=== PATIENT | male | born 1950 | race Caucasian/White ===

== ENCOUNTER 2022-07-06 16:12 | Inpatient (IN) | payer MEDICARE, SELFPAY ==
[2022-07-08] VITALS (9 sets, daily range): BP systolic 113–144; BP diastolic 58–72; PULSE 100–109; RESP 18–24; TEMP 36.6–36.7; O2SAT 90–95
[2022-07-08] MEDS: METHYLPREDNISOLONE SOD SUCC PF 40 MG/ML VIAL IVP ×4 (00:42→17:06)
[2022-07-08] MEDS: IPRATROPIUM/ALBUTEROL SULFATE 3 ML AMPUL.NEB IH ×4 (04:33→20:34)
[2022-07-08 05:20] LABS: Anion Gap 5.3; BUN Creatinine Ratio 14.8; Calcium 9.2 mg/dL (8.5-10.1); Carbon Dioxide 38.9 mmol/L (21.0-32.0); Chloride 95 mmol/L (98-107); Estimated GFR (African America >60 (>=60); Estimated GFR (Non-African Ame >60 (>=60); Glucose 125 mg/dL (74-106); Potassium 5.2 mmol/L (3.5-5.1); Sodium 134 mmol/L (136-145)
[2022-07-08 05:38] LABS: Basophils Percent Auto 0.1 % (0.2-2.0); Hematocrit 32.7 % (42.0-54.0); Hemoglobin 10.3 g/dL (14.0-18.0); Immature Granulocytes Abs Auto 0.04 10^3/uL (0.00-0.03); Immature Granulocytes Pct Auto 0.4 % (0.0-0.5); Lymphocytes Absolute Auto 0.3 10^3/uL (1.2-3.8); Lymphocytes Percent Auto 2.3 % (20.5-60.0); Mean Corpuscular HGB Conc 31.5 g/dL (29.9-35.2); Mean Corpuscular Hemoglobin 27.2 pg (25.9-34.0); Mean Corpuscular Volume 86.3 fL (80.0-94.0); Monocytes Absolute Auto 0.7 10^3/uL (0.3-0.8); Monocytes Percent Auto 6.1 % (1.7-12.0); Neutrophils Absolute Auto 10.2 10^3/uL (1.4-6.5); Neutrophils Percent Auto 91.1 % (43.0-75.0); Nucleated Red Blood Cells 0; Platelet Count 263 10^3/uL (150-450); Red Blood Count 3.79 10^6/uL (4.70-6.10); White Blood Count 11.2 10^3/uL (4.0-11.0)
[2022-07-08] MEDS: OMEPRAZOLE 40 MG CAPSULE.DR PO (06:14)
[2022-07-08] MEDS: METOPROLOL SUCCINATE 25 MG TAB.ER.24H PO (09:17)
[2022-07-08] MEDS: TAMSULOSIN HCL 0.4 MG CAPSULE PO (09:17)
[2022-07-08] MEDS: GUAIFENESIN 600 MG TAB.ER.12H PO ×2 (09:18→21:36)
[2022-07-08] MEDS: ASPIRIN 81 MG TAB.CHEW PO (09:18)
[2022-07-08] MEDS: AMLODIPINE BESYLATE 5 MG TABLET PO (09:18)
[2022-07-08] MEDS: ATORVASTATIN CALCIUM 40 MG TABLET PO (09:18)
[2022-07-08] MEDS: THEOPHYLLINE 300 MG TAB.ER.12H PO (09:19)
[2022-07-08] MEDS: SPIRONOLACTONE 25 MG TABLET PO (09:19)
--- NOTE | 2022-07-08 09:21 | REH.PTDLY ---
Physical Therapy Daily Note PT Daily Note/Assess Start: 07/08/22 09:12 Freq: Status: Active Protocol: [facility] 07[facility]08/22 09:12 [facility] (Rec: 07/08/22 09:20 [facility] Desktop) Physical Therapy Daily Note/Assessment Time In 08:50 Time Out 09:12 Pain Level 0 Pain Level 0 Subjective Pt feeling better today. Just got done taking himself to bathroom Ind. with no issues per pt. Therapeutic Exercise Minutes (minutes) 8 Therapeutic Exercise Units 0 Therapeutic Exercise Treatment Instructed in B LE seated exs 12x ea for improved strength for ease of functional mobility and stamina when pt returns home. Mild SOB noted after with SpO2 at 90%. Pt reports normal range is 88-92% for him due to his condition. Therapeutic Activity Minutes (minutes) 9 Therapeutic Activity Units 1 Chair Transfer Ability Independent Therapeutic Activity Comments Pt able to perform sit to stand transfers from chair Ind . Gait training with no AD, wearing 3 L of O2 108 feet with SOB noted after. Pt takes deep breaths with SpO2 at 89% and increasing quickly to 91% . Continuous sit to stand transfers performed 8x with this fatiguing pt once he is done. States it felt easy while he was performing. Total Therapy Minutes 17 Total Physical Therapy Units 1 Daily Note Summary Progressed with gait and transfers today with improved stamina, but still becoming SOB and requiring pt to focus on his breathing to recover. Pt is able to recover quickly. Pt is planning to return home without any needs. Does well with PT and has good safety awareness.
--- NOTE | 2022-07-08 09:44 | CM.NOTE ---
Rounds made with Dr. Gandhi, no discharge today but discussed possible discharge to home tomorrow. Pt does use home oxygen, but continues to deny need for HH services. SW and Case Management will continue to follow for any discharge needs.
[2022-07-08] MEDS: BUDESONIDE 0.5 MG/2 ML AMPULE NEB IH ×2 (10:44→20:34)
--- NOTE | 2022-07-08 11:49 | P.PN_ITS ---
Progress Note: Subjective Subjective Interval history: patient is a 72-year-old male with past medical history of chronic obstructive pulmonary disease requiring 3 L of oxygen at home, hypertension, hyperlipidemia, benign prostatic hypertrophy. Patient says he follows regularly with Dr. Singh. Over the course of the last week has becoming increased shortness of breath and he has noticed that his oxygen saturation has dropped into the 50s at times. He thinks it's the allergens floating around currently in the air. Denies any medication changes. At the time of admission he does report some increased work of breathing with small tasks. Otherwise denies any fevers chills or coughing nausea vomiting or diarrhea. Feeling better this morning, up with PT Exam Narrative: Exam Narrative: General: Patient is alert, and oriented to person, place and time with normal affect, proper hygiene , mild cachexia Skin: dry skin to both feet Head: atraumatic, acephalic Eyes: PERRLA, no nystagmus present, conjunctiva clear, no scleral icterus Ears: normal gross auditory acuity Nose: symmetric, no discharge, no maxillary or frontal sinus tenderness Mouth/Throat: no erythema, exudate, or tonsillar enlargement, normal dentition Neck: no masses palpated, normal thyroid, no JVD or audible carotid bruits Heart: Normal rate and rhythm, no murmurs/rubs/gallops Lungs:diminished breath sounds all lung vergara but moving more air today Abdomen: Normal audible bowel sounds, no distension, No palpable masses, no organomegaly, no rebound/guarding/ or rigidity Musculoskeletal: muscle atrophy noted, ROM is limited due to being in hospital bed, no swelling bilateral lower extremities Vascular: Normal carotid, radial, femoral, posterior tibial, and dorsalis pedis pulses Lymph: no supraclavicular, axillary, or anterior/posterior cervical adenopathy Neuro: CN II-X grossly intact, normal sensation upper and lower extremities Constitutional: Vital Signs, click to edit/add: Vital Signs - 24 hr 07/08/22 10:49 07/08/22 10:51 07/08/22 04:33 Temperature Pulse Rate 101 H 104 H Respiratory Rate 24 Blood Pressure [Le ft Arm] Pulse Oximetry 95 95 90 L Oxygen Delivery Me thod Nasal Cannula Nasal Cannula Nasal Cannula Oxygen Delivery Fl ow Rate 3 3 3 07/08/22 04:47 07/08/22 05:13 Temperature 97.9 F Pulse Rate 103 H 104 H Respiratory Rate 22 18 Blood Pressure [Le ft Arm] 113/58 L Pulse Oximetry 94 L 92 L Oxygen Delivery Me thod Nasal Cannula Nasal Cannula Oxygen Delivery Fl ow Rate 3 3 Progress Note: Objective Labs Labs: Short CBC 07/08/22 Range/Units 04:42 WBC 11.2 H (4.0-11.0) 10^3/uL Hgb 10.3 L (14.0-18.0) g/dL Hct 32.7 L (42.0-54.0) % Plt Count 263 (150-450) 10^3/uL BMP 07/08/22 04:42 Sodium 134 L Potassium 5.2 H Chloride 95 L Carbon Dioxide 38.9 H BUN 12.0 Creatinine 0.81 Glucose 125 H Calcium 9.2 Progress Note: A&P Assessment and Plan (1) Community acquired pneumonia of left lower lobe of lung: (2) Acute exacerbation of chronic obstructive pulmonary disease (COPD): (3) Acute on chronic respiratory failure with hypoxia: Plan #1 left lower lobe community-acquired pneumonia as seen on chest [id number] was placed on Rocephin and 80s IV along with methylprednisolone. We'll continue with DuoNeb's inhaled steroids and will also get a pulmonary consult. #2 acute chronic obstructive pulmonary disease exacerbation secondary to #1-Pep therapy, IV steroids, nebulizers, Mucinex and theophylline #3 acute on chronic respiratory failure from #1 and #2-patient was requiring more oxygen than 3 L at approximately 4 L nasal cannula at the time of admission. #4 hypertension continue home amlodipine, metoprolol, spironolactone #5 hyperlipidemia continue rosuvastatin and daily aspirin #6 GERD continue Protonix #7 benign prostatic hypertrophy continue Flomax Patient is a full code Lovenox for deep vein thrombosis prophylaxis patient as inpatient status and is expected to stay more than two days Fall Risk Details Current Medications: Current Medications Acetaminophen (Acetaminophen 325 Mg Tablet) 650 mg PO Q4H PRN PRN Reason: Pain Al Hydrox/Mg Hydrox/Simethicone (Maalox (Mag Hydrox/Aluminum Hyd/Simeth) 30 Ml Oral.Susp) 30 ml PO Q4H PRN PRN Reason: INDIGESTION Albuterol/Ipratropium (Ipratropium/Albuterol Sulfate 3 Ml Ampul.Neb) 3 ml IH Q4H PRN PRN Reason: Wheezing Albuterol/Ipratropium (Ipratropium/Albuterol Sulfate 3 Ml Ampul.Neb) 3 ml IH DAILY@0500,1100,1600,2100 COUNT INCLUDES THE [facility] Last Admin: 07/08/22 10:44 Dose: 3 ml Amlodipine Besylate (Amlodipine Besylate 5 Mg Tablet) 5 mg PO QD COUNT INCLUDES THE [facility] Last Admin: 07/08/22 09:18 Dose: 5 mg Aspirin (Aspirin 81 Mg Tab.Chew) 81 mg PO QD COUNT INCLUDES THE [facility] Last Admin: 07/08/22 09:18 Dose: 81 mg Atorvastatin Calcium (Atorvastatin Calcium 40 Mg Tablet) 40 mg PO QD COUNT INCLUDES THE [facility] Last Admin: 07/08/22 09:18 Dose: 40 mg Budesonide (Budesonide 0.5 Mg/2 Ml Ampule Neb) 0.5 mg IH DAILY@1100,2300 COUNT INCLUDES THE [facility] Last Admin: 07/08/22 10:44 Dose: 0.5 mg Enoxaparin Sodium (Enoxaparin Sodium 40 Mg/0.4 Ml Syringe) 40 mg SUBQ Q24H COUNT INCLUDES THE [facility] Guaifenesin (Guaifenesin 600 Mg Tab.Er.12h) 600 mg PO Q12H COUNT INCLUDES THE [facility] Last Admin: 07/08/22 09:18 Dose: 600 mg Azithromycin 500 mg/ Sodium (Chloride) 250 mls @ 250 mls/hr IV Q24H COUNT INCLUDES THE [facility] Ceftriaxone Sodium 1 mg/ (Sodium Chloride) 50 mls @ 100 mls/hr IV Q24H COUNT INCLUDES THE [facility] Sodium Chloride (Sodium Chloride 0.9% 250 Ml) 250 mls @ 10.417 mls/hr IV Q1H PRN PRN Reason: FLUSHES Methylprednisolone Sodium Succinate (Methylprednisolone Sod Succ Pf 40 Mg/Ml Vial) 40 mg IVP Q6H COUNT INCLUDES THE [facility] Last Admin: 07/08/22 11:11 Dose: 40 mg Metoprolol Succinate (Metoprolol Succinate 25 Mg Tab.Er.24h) 25 mg PO QD COUNT INCLUDES THE [facility] Last Admin: 07/08/22 09:17 Dose: 25 mg Omeprazole (Omeprazole 40 Mg Capsule.Dr) 40 mg PO ACB COUNT INCLUDES THE [facility] Last Admin: 07/08/22 06:14 Dose: 40 mg Ondansetron HCl (Ondansetron Pf 4 Mg/2 Ml Vial) 4 mg IV Q6H PRN PRN Reason: Nausea Polyethylene Glycol (Polyethylene Glycol 3350 17 Gm Powder Packet) 17 gm PO QD PRN PRN Reason: CONSTIPATION Spironolactone (Spironolactone 25 Mg Tablet) 25 mg PO QD COUNT INCLUDES THE [facility] Last Admin: 07/08/22 09:19 Dose: 25 mg Tamsulosin HCl (Tamsulosin Hcl 0.4 Mg Capsule) 0.4 mg PO QD COUNT INCLUDES THE [facility] Last Admin: 07/08/22 09:17 Dose: 0.4 mg Theophylline (Theophylline 300 Mg Tab.Er.12h) 300 mg PO QD COUNT INCLUDES THE [facility] Last Admin: 07/08/22 09:19 Dose: 300 mg Time Spent With Patient Time: Total time spent is greater than 50% in coordination of care (as documented) at patient's floor/unit and/or counseling patient: Time with patient: 25 - 35 minutes
[2022-07-08] MEDS: CEFTRIAXONE 1 MG in 0.9 % SODIUM CHLORIDE 50 ML 100 MG IV (16:12)
[2022-07-08] MEDS: ENOXAPARIN SODIUM 40 MG/0.4 ML SYRINGE SUBQ (16:13)
[2022-07-08] MEDS: 0.9 % SODIUM CHLORIDE 250 ML 10.417 ML IV (16:19)
[2022-07-08] MEDS: AZITHROMYCIN 500 MG in 0.9 % SODIUM CHLORIDE 250 ML 250 MG IV (16:59)
--- NOTE | 2022-07-08 18:23 | PM.PLPN ---
Progress Note: A&P Assessment and Plan (1) Acute exacerbation of chronic obstructive pulmonary disease (COPD): Assessment and Plan: Continue nebs/bronchodilators. (2) Community acquired pneumonia of left lower lobe of lung: Assessment and Plan: Continue antibiotics. (3) Acute on chronic respiratory failure with hypoxia: Assessment and Plan: O2 needs are improving. Recommend 6MW to see if he needs any adjustment in his ambulatory O2 flows...baseline 3L/min. (4) History of tobacco abuse: Fall Risk Details Current Medications: Current Medications Acetaminophen (Acetaminophen 325 Mg Tablet) 650 mg PO Q4H PRN PRN Reason: Pain Al Hydrox/Mg Hydrox/Simethicone (Maalox (Mag Hydrox/Aluminum Hyd/Simeth) 30 Ml Oral.Susp) 30 ml PO Q4H PRN PRN Reason: INDIGESTION Albuterol/Ipratropium (Ipratropium/Albuterol Sulfate 3 Ml Ampul.Neb) 3 ml IH Q4H PRN PRN Reason: Wheezing Albuterol/Ipratropium (Ipratropium/Albuterol Sulfate 3 Ml Ampul.Neb) 3 ml IH DAILY@0500,1100,1600,2100 [facility] Last Admin: 07/08/22 16:44 Dose: 3 ml Amlodipine Besylate (Amlodipine Besylate 5 Mg Tablet) 5 mg PO QD [facility] Last Admin: 07/08/22 09:18 Dose: 5 mg Aspirin (Aspirin 81 Mg Tab.Chew) 81 mg PO QD [facility] Last Admin: 07/08/22 09:18 Dose: 81 mg Atorvastatin Calcium (Atorvastatin Calcium 40 Mg Tablet) 40 mg PO QD [facility] Last Admin: 07/08/22 09:18 Dose: 40 mg Budesonide (Budesonide 0.5 Mg/2 Ml Ampule Neb) 0.5 mg IH DAILY@1100,2300 [facility] Last Admin: 07/08/22 10:44 Dose: 0.5 mg Enoxaparin Sodium (Enoxaparin Sodium 40 Mg/0.4 Ml Syringe) 40 mg SUBQ Q24H [facility] Last Admin: 07/08/22 16:13 Dose: 40 mg Guaifenesin (Guaifenesin 600 Mg Tab.Er.12h) 600 mg PO Q12H [facility] Last Admin: 07/08/22 09:18 Dose: 600 mg Azithromycin 500 mg/ Sodium (Chloride) 250 mls @ 250 mls/hr IV Q24H [facility] Last Admin: 07/08/22 16:59 Dose: 250 ml/hr, 250 mls/hr Ceftriaxone Sodium 1 mg/ (Sodium Chloride) 50 mls @ 100 mls/hr IV Q24H [facility] Last Infusion: 07/08/22 16:59 Dose: Infused Sodium Chloride (Sodium Chloride 0.9% 250 Ml) 250 mls @ 10.417 mls/hr IV Q1H PRN PRN Reason: FLUSHES Last Admin: 07/08/22 16:19 Dose: 10.417 mls/hr Methylprednisolone Sodium Succinate (Methylprednisolone Sod Succ Pf 40 Mg/Ml Vial) 40 mg IVP Q6H [facility] Last Admin: 07/08/22 17:06 Dose: 40 mg Metoprolol Succinate (Metoprolol Succinate 25 Mg Tab.Er.24h) 25 mg PO QD [facility] Last Admin: 07/08/22 09:17 Dose: 25 mg Omeprazole (Omeprazole 40 Mg Capsule.Dr) 40 mg PO ACB [facility] Last Admin: 07/08/22 06:14 Dose: 40 mg Ondansetron HCl (Ondansetron Pf 4 Mg/2 Ml Vial) 4 mg IV Q6H PRN PRN Reason: Nausea Polyethylene Glycol (Polyethylene Glycol 3350 17 Gm Powder Packet) 17 gm PO QD PRN PRN Reason: CONSTIPATION Spironolactone (Spironolactone 25 Mg Tablet) 25 mg PO QD [facility] Last Admin: 07/08/22 09:19 Dose: 25 mg Tamsulosin HCl (Tamsulosin Hcl 0.4 Mg Capsule) 0.4 mg PO QD [facility] Last Admin: 07/08/22 09:17 Dose: 0.4 mg Theophylline (Theophylline 300 Mg Tab.Er.12h) 300 mg PO QD [facility] Last Admin: 07/08/22 09:19 Dose: 300 mg Time Spent With Patient Time: Total time spent is greater than 50% in coordination of care (as documented) at patient's floor/unit and/or counseling patient: Subjective Subjective Interval history: Patient states he is doing better today. Less BROWN. Cough. Tolerating treatments. No new pulmonary complaints. Exam Constitutional: Vital Signs, click to edit/add: Vital Signs - 24 hr 07/08/22 10:49 07/08/22 10:51 07/08/22 13:20 Temperature 98.1 F Pulse Rate 101 H 101 H Respiratory Rate 22 Blood Pressure [Le ft Arm] 129/72 H Pulse Oximetry 95 95 90 L Oxygen Delivery Me thod Nasal Cannula Nasal Cannula Nasal Cannula Oxygen Delivery Fl ow Rate 3 3 07/08/22 16:45 07/08/22 04:33 07/08/22 04:47 Temperature Pulse Rate 104 H 103 H Respiratory Rate 24 22 Blood Pressure [Le ft Arm] Pulse Oximetry 93 L 90 L 94 L Oxygen Delivery Me thod Nasal Cannula Nasal Cannula Nasal Cannula Oxygen Delivery Fl ow Rate 3 3 3 07/08/22 05:13 Temperature 97.9 F Pulse Rate 104 H Respiratory Rate 18 Blood Pressure [Le ft Arm] 113/58 L Pulse Oximetry 92 L Oxygen Delivery Me thod Nasal Cannula Oxygen Delivery Fl ow Rate 3 HENMT: Nose: other (wearing nasal cannula) Mouth: oral and palatal mucosa normal (no candidiasis) Chest: Common normals: palpation of chest normal Respiratory: Auscultation: crackles (less than yesterday) and diminished lung sounds (very diminished) Cardio: Rate: regular rate Rhythm: regular rhythm GI: Common normals: Normal to inspection, nondistended, normoactive bowel sounds present and soft to palpation Extremity: Common normals: no clubbing, cyanosis or edema Psych: Common normals: cooperative (pleasant)
--- NOTE | 2022-07-08 20:06 | PC.NURSE ---
pt. awake and alert watchingTV
[2022-07-09] MEDS: METHYLPREDNISOLONE SOD SUCC PF 40 MG/ML VIAL IVP ×3 (01:19→11:56)
[2022-07-09 04:05] VITALS: PULSE 102; RESP 18; O2SAT 96
[2022-07-09] MEDS: IPRATROPIUM/ALBUTEROL SULFATE 3 ML AMPUL.NEB IH ×2 (04:05→11:51)
[2022-07-09] MEDS: ENOXAPARIN SODIUM 40 MG/0.4 ML SYRINGE SUBQ (05:26)
[2022-07-09] MEDS: OMEPRAZOLE 40 MG CAPSULE.DR PO (05:30)
[2022-07-09 05:44] VITALS: BP 115/60; PULSE 104; RESP 18; TEMP 36.7; O2SAT 92
[2022-07-09 05:51] LABS: Basophils Percent Auto 0.1 % (0.2-2.0); Hematocrit 33.6 % (42.0-54.0); Hemoglobin 10.7 g/dL (14.0-18.0); Immature Granulocytes Abs Auto 0.05 10^3/uL (0.00-0.03); Immature Granulocytes Pct Auto 0.4 % (0.0-0.5); Lymphocytes Absolute Auto 0.2 10^3/uL (1.2-3.8); Lymphocytes Percent Auto 1.4 % (20.5-60.0); Mean Corpuscular HGB Conc 31.8 g/dL (29.9-35.2); Mean Corpuscular Hemoglobin 27.9 pg (25.9-34.0); Mean Corpuscular Volume 87.7 fL (80.0-94.0); Monocytes Absolute Auto 0.6 10^3/uL (0.3-0.8); Monocytes Percent Auto 4.9 % (1.7-12.0); Neutrophils Absolute Auto 10.7 10^3/uL (1.4-6.5); Neutrophils Percent Auto 93.2 % (43.0-75.0); Nucleated Red Blood Cells 0; Platelet Count 268 10^3/uL (150-450); Red Blood Count 3.83 10^6/uL (4.70-6.10); Red Cell Distribution Width 12.1 % (11.0-15.0); White Blood Count 11.5 10^3/uL (4.0-11.0)
[2022-07-09 07:24] LABS: Alanine Aminotransferase 24 U/L (16-63); Albumin Globulin Ratio 0.9; Albumin Level 2.8 g/dL (3.4-5.0); Alkaline Phosphatase 80 U/L (46-116); Anion Gap 5.7; Aspartate Amino Transferase 31 U/L (15-37); BUN Creatinine Ratio 17.9; Bilirubin Total 0.2 mg/dL (0.2-1.0); Calcium 9.2 mg/dL (8.5-10.1); Carbon Dioxide 39.6 mmol/L (21.0-32.0); Chloride 95 mmol/L (98-107); Estimated GFR (African America >60 (>=60); Estimated GFR (Non-African Ame >60 (>=60); Glucose 110 mg/dL (74-106); Potassium 5.3 mmol/L (3.5-5.1); Sodium 135 mmol/L (136-145); Total Protein 5.8 g/dL (6.4-8.2)
[2022-07-09 08:06] VITALS: RESP 24
[2022-07-09] MEDS: THEOPHYLLINE 300 MG TAB.ER.12H PO (08:37)
[2022-07-09] MEDS: ATORVASTATIN CALCIUM 40 MG TABLET PO (08:37)
[2022-07-09] MEDS: SPIRONOLACTONE 25 MG TABLET PO (08:37)
[2022-07-09] MEDS: GUAIFENESIN 600 MG TAB.ER.12H PO (08:37)
[2022-07-09] MEDS: AMLODIPINE BESYLATE 5 MG TABLET PO (08:37)
[2022-07-09] MEDS: METOPROLOL SUCCINATE 25 MG TAB.ER.24H PO (08:37)
[2022-07-09] MEDS: TAMSULOSIN HCL 0.4 MG CAPSULE PO (08:37)
[2022-07-09] MEDS: ASPIRIN 81 MG TAB.CHEW PO (08:37)
[2022-07-09 08:43] VITALS: BP 116/60; PULSE 102
--- NOTE | 2022-07-09 10:44 | SWNOTE1 ---
Pt has decided he does want HH. SW took the 5 star medicare.gov rating list in to patient for him to review.
--- NOTE | 2022-07-09 10:44 | CM.NOTE ---
Rounds made with Dr. Gandhi, possible discharge to home today. Pt now requesting HH, will bring pt a list of HH agencies. Pt has home oxygen at this time.
--- NOTE | 2022-07-09 11:37 | SWNOTE1 ---
MARY met with pt to see what company he has decided. [facility] MARY sent referral to [employer].
[2022-07-09] MEDS: BUDESONIDE 0.5 MG/2 ML AMPULE NEB IH (11:50)
--- NOTE | 2022-07-09 13:08 | PM.DS1 ---
DS: Providers Provider Date of admission: 07/06/22 16:12 Primary care physician: MARIE MCCALLUM DS: Diagnosis Discharge Diagnosis (1) Acute exacerbation of chronic obstructive pulmonary disease (COPD): (2) Community acquired pneumonia of left lower lobe of lung: (3) Acute on chronic respiratory failure with hypoxia: (4) History of tobacco abuse: DS: Summary Hospital Course Hospital Course: #1 left lower lobe community-acquired pneumonia as seen on chest [id number] was placed on Rocephin and 80s IV along with methylprednisolone. We'll continue with DuoNeb's inhaled steroids and will also get a pulmonary consult. At the time of discharge patient is at his baseline O2 at 3 L continuous. We'll prescribe 20 mg of prednisone twice a day ?7 days, azithromycin 250 mg daily for four days, and Augmentin 875/125 mg twice a day ?4 more days. Patient will have a close outpatient follow-up with pulmonology. Continue all home inhalers with no changes #2 acute chronic obstructive pulmonary disease exacerbation secondary to #1-Pep therapy, IV steroids, nebulizers, Mucinex and theophylline #3 acute on chronic respiratory failure from #1 and #2-patient was requiring more oxygen than 3 L at approximately 4 L nasal cannula at the time of admission back to 3L at time of discharge #4 hypertension continue home amlodipine, metoprolol, spironolactone #5 hyperlipidemia continue rosuvastatin and daily aspirin #6 GERD continue Protonix #7 benign prostatic hypertrophy continue Flomax Status at Discharge Functional status at discharge: independent ambulation Overall status at discharge: patient is back to baseline Time Spent with Patient Time attestation: Total time spent providing and/or coordinating discharge services: Exam Narrative: Exam Narrative: General: Patient is alert, and oriented to person, place and time with normal affect, proper hygiene , mild cachexia Skin: dry skin to both feet Head: atraumatic, acephalic Eyes: PERRLA, no nystagmus present, conjunctiva clear, no scleral icterus Ears: normal gross auditory acuity Nose: symmetric, no discharge, no maxillary or frontal sinus tenderness Mouth/Throat: no erythema, exudate, or tonsillar enlargement, normal dentition Neck: no masses palpated, normal thyroid, no JVD or audible carotid bruits Heart: Normal rate and rhythm, no murmurs/rubs/gallops Lungs:diminished breath sounds all lung vergara but moving more air Abdomen: Normal audible bowel sounds, no distension, No palpable masses, no organomegaly, no rebound/guarding/ or rigidity Musculoskeletal: muscle atrophy noted, ROM is limited due to being in hospital bed, no swelling bilateral lower extremities Vascular: Normal carotid, radial, femoral, posterior tibial, and dorsalis pedis pulses Lymph: no supraclavicular, axillary, or anterior/posterior cervical adenopathy Neuro: CN II-X grossly intact, normal sensation upper and lower extremities Constitutional: Vital Signs, click to edit/add: Vital Signs - 24 hr 07/08/22 13:20 07/08/22 16:45 07/08/22 20:01 Temperature 98.1 F 97.8 F Pulse Rate 101 H 109 H Respiratory Rate 22 20 Blood Pressure [Le ft Arm] 129/72 H Blood Pressure [Ri ght Arm] 144/66 H Pulse Oximetry 90 L 93 L 92 L Oxygen Delivery Me thod Nasal Cannula Nasal Cannula Nasal Cannula Oxygen Delivery Fl ow Rate 3 3 07/08/22 20:34 07/08/22 20:34 07/09/22 04:05 Temperature Pulse Rate 100 H 102 H Respiratory Rate 24 18 Blood Pressure [Le ft Arm] Blood Pressure [Ri ght Arm] Pulse Oximetry 90 L 96 Oxygen Delivery Me thod Nasal Cannula Nasal Cannula Nasal Cannula Oxygen Delivery Fl ow Rate 3 3 3 07/09/22 05:44 07/09/22 08:06 07/09/22 08:43 Temperature 98.1 F Pulse Rate 104 H 102 H Respiratory Rate 18 24 Blood Pressure [Le ft Arm] Blood Pressure [Ri ght Arm] 115/60 116/60 Pulse Oximetry 92 L Oxygen Delivery Me thod Nasal Cannula Oxygen Delivery Fl ow Rate 3 DS: Data Data Completed and Pending Labs on day of discharge: Labs from last 24 hours 07/09/22 04:14 WBC 11.5 H RBC 3.83 L Hgb 10.7 L Hct 33.6 L MCV 87.7 MCH 27.9 MCHC 31.8 RDW 12.1 Plt Count 268 MPV 9.0 L Neut % (Auto) 93.2 H Lymph % (Auto) 1.4 L [place] % (Auto) 4.9 Eos % (Auto) 0.0 L Baso % (Auto) 0.1 L Neut # (Auto) 10.7 H Lymph # (Auto) 0.2 L [place] # (Auto) 0.6 Eos # (Auto) 0.0 Baso # (Auto) 0.0 Nucleated RBCs 0 Sodium 135 L Potassium 5.3 H Chloride 95 L Carbon Dioxide 39.6 H Anion Gap 5.7 BUN 15.0 Creatinine 0.84 Est GFR ( Amer) >60 Est GFR (Non-Af Amer) >60 BUN/Creatinine Ratio 17.9 Glucose 110 H Calcium 9.2 Total Bilirubin 0.2 AST 31 ALT 24 Total Protein 5.8 L Albumin 2.8 L Globulin 3.0 Albumin/Globulin Ratio 0.9 Preliminary micro results at discharge 07/08/22 14:00 Sputum Culture - Preliminary Sputum - Expectorated Sputum Discharge Plan Discharge Disposition: Home Health Service Discharge Medications: New prednisone 20 mg tablet 20 mg PO BID 7 Days Qty: 14 0RF azithromycin 250 mg tablet 250 mg PO DAILY 4 Days Qty: 4 0RF amoxicillin-pot clavulanate 875-125 mg tablet 1 tab PO BID 4 Days Qty: 8 0RF Continued amlodipine 5 mg tablet 5 mg PO .daily Trelegy Ellipta 100-62.5-25 mcg blister with device 1 inh inhalation Q24H spironolactone 25 mg tablet 25 mg PO .daily theophylline 300 mg tablet extended release 12 hr 300 mg PO Q24H tamsulosin 0.4 mg capsule 0.4 mg PO Q24H pantoprazole 40 mg tablet,delayed release (DR/EC) 40 mg PO .daily metoprolol succinate 25 mg tablet extended release 24 hr 25 mg PO .daily rosuvastatin 10 mg tablet 10 mg PO .daily aspirin 81 mg tablet,chewable 81 mg PO QDAY Activity: increase activity as tolerated and wear oxygen at all times Diet: advance to your usual diet Forms: Portal Instructions Follow Up Appointments: Dr. Singh 1 week
--- NOTE | 2022-07-09 13:26 | SWNOTE1 ---
MARY called and spoke with Laquita at [facility] and they are able to accept, may not start care until Tuesday07/12/22. MARY notified nursing. Patient will be dc today.
[2022-07-09 13:38] VITALS: O2SAT 95
== END 2022-07-09 14:48 | disposition home health service (06) | DRG 193 ==
PROVIDERS: Admitting Provider Family Medicine; PCP Family Medicine; Visit Provider Family Medicine
DX: J18.9 Pneumonia, unspecified organism (principal); J96.21 Acute and chronic respiratory failure with hypoxia; J44.1 Chronic obstructive pulmonary disease with (acute) exacerbation; J44.0 Chronic obstructive pulmonary disease with (acute) lower respiratory infection; I10 Essential (primary) hypertension; E78.5 Hyperlipidemia, unspecified; K21.9 Gastro-esophageal reflux disease without esophagitis; N40.0 Benign prostatic hyperplasia without lower urinary tract symptoms; Z20.822 Contact with and (suspected) exposure to COVID-19; I25.10 Atherosclerotic heart disease of native coronary artery without angina pectoris; Z99.81 Dependence on supplemental oxygen; Z87.891 Personal history of nicotine dependence; Z79.82 Long term (current) use of aspirin; Z79.51 Long term (current) use of inhaled steroids; Z79.899 Other long term (current) drug therapy; Z98.890 Other specified postprocedural states; Z88.5 Allergy status to narcotic agent; Z88.8 Allergy status to other drugs, medicaments and biological substances; Z82.49 Family history of ischemic heart disease and other diseases of the circulatory system
CPT/HCPCS: 36415; 71045; 80048; 80053; 83605; 84484; 85025; 87040; 87070; 87106; 87205; 87635; 87811; 93005; 94640; 94667; 94668; 94761; 96365; 96366; 96367; 96372; 96375; 96376; 97161; 97530; 99285; J0456; J2920; J2930; Q3014; U0003

== ENCOUNTER 2022-09-09 11:02 | Outpatient (OUT) | payer MEDICARE, SELFPAY ==
--- NOTE | 2022-09-09 11:06 | XR_ITS ---
The [address] [address] Patient Name: SOFYA ORTA MRN: [id number] date: 1950 Sex: M Assigned Patient Location: RAD Current Patient Location: [facility] Accession/Order Number: [id number] Exam Date: 09/09/2022 11:16 Report Date: 09/09/2022 11:35 At the request of: JOSE CARLOS HANDY Procedure: XR chest 2V EXAM: XR chest 2V HISTORY: Pneumonia J18.9 COMPARISON: None. TECHNIQUE: PA and lateral views of the chest. FINDINGS: The cardiomediastinal silhouette is normal. No focal consolidation is identified. There is no pneumothorax. Small bilateral pleural effusions are noted. The osseous structures are intact. XR/XR chest 2V IMPRESSION: Suggestion of COPD. Small bilateral pleural effusions. Electronically authenticated by: AWA ZAMBRANO Date: 09/09/2022 11:35
== END 2022-09-09 11:03 | disposition home or self-care (01) ==
LOC: RAD 11:02
PROVIDERS: PCP Family Medicine; Visit Provider Internal Medicine
DX: J18.9 Pneumonia, unspecified organism (principal); J90 Pleural effusion, not elsewhere classified; R91.8 Other nonspecific abnormal finding of lung field
CPT/HCPCS: 71046

== ENCOUNTER 2022-10-14 15:59 | Outpatient (REF) | payer MEDICARE, SELFPAY ==
[2022-10-14 16:29] LABS: Theophylline 15.4 ug/mL (10.0-20.0)
== END 2022-10-14 16:00 | disposition home or self-care (01) ==
LOC: LAB 15:59
PROVIDERS: PCP Family Medicine; Visit Provider Internal Medicine
DX: J43.2 Centrilobular emphysema (principal); Z51.81 Encounter for therapeutic drug level monitoring
CPT/HCPCS: 36415; 80198

== ENCOUNTER 2022-11-22 14:16 | Inpatient (IN) | payer MEDICARE, SELFPAY ==
[2022-11-22] VITALS (25 sets, daily range): BP systolic 100–150; BP diastolic 55–74; PULSE 97–121; RESP 16–31; TEMP 36.3–36.9; O2SAT 86–100; BMI 17.9; BMI 17.8
--- NOTE | 2022-11-22 14:21 | ED_ITS ---
HPI - SOB/Dyspnea General Chief Complaint: Shortness of Breath/Dyspnea Stated Complaint: SHORTNESS OF BREATH Time Seen by Provider: 11/22/22 14:19 Source: patient Mode of arrival: ambulance History of Present Illness HPI Narrative: patient is a 72-year-old male to history of chronic obstructive pulmonary disease, emphysema presents to the emergency department by ambulance for the evaluation of increasing shortness of breath over the last 2-4 hours. He wears oxygen by nasal cannula at 2.5 L continuously. He arrives on nasal cannula at 4 L. He was given a DuoNeb prior to arrival with IV Solu-Medrol by EMS and reports feeling improved at this time. He denies chest pain, fevers, chills, nausea, vomiting, peripheral edema. No sick contacts in the home. he reports sputum production that is hand in color with no gabby hemoptysis. He currently takes 5 mg of prednisone daily from Dr. Francisco silva community relations assistant. he states he has a nebulizer machine at home but states his breathing treatments were seeming to help as much as the breathing treatment given by EMS. Related Data Home Medications Medication Instructions Recorded Confirmed amlodipine 5 mg tablet 5 mg PO .daily 07/08/22 11/22/22 aspirin 81 mg chewable tablet 81 mg PO QDAY 07/08/22 11/22/22 fluticasone fur. 100 mcg-umeclid 1 inh inhalation Q24H 07/08/22 11/22/22 62.5 mcg-vilant 25 mcg inhalat.powder (Trelegy Ellipta) metoprolol succinate 25 mg 25 mg PO .daily 07/08/22 11/22/22 tablet,extended release 24 hr pantoprazole 40 mg tablet,delayed 40 mg PO .daily 07/08/22 11/22/22 release rosuvastatin 10 mg tablet 10 mg PO .daily 07/08/22 11/22/22 spironolactone 25 mg tablet 25 mg PO .daily 07/08/22 11/22/22 tamsulosin 0.4 mg capsule 0.4 mg PO Q24H 07/08/22 11/22/22 theophylline 300 mg 300 mg PO Q24H 07/08/22 11/22/22 tablet,extended release,12 hr ipratropium 0.5 mg-albuterol 3 mg 3 ml inhalation Q4H PRN shortness 11/22/22 11/22/22 (2.5 mg base)/3 mL nebulization of breath or wheezing soln prednisone 5 mg tablet 5 mg PO DAILY 11/22/22 11/22/22 Previous Rx's Medication Instructions Recorded amoxicillin 875 mg-potassium 1 tab PO BID PNA 4 days #8 tabs 07/09/22 clavulanate 125 mg tablet azithromycin 250 mg tablet 250 mg PO DAILY PNA 4 days #4 tabs 07/09/22 prednisone 20 mg tablet 20 mg PO BID PNA 7 days #14 tabs 07/09/22 Allergies Allergy/AdvReac Type Severity Reaction Status Date / Time meperidine [From Demerol] Allergy Severe Anaphylaxis Verified 07/08/22 00:40 morphine Allergy Anaphylaxis Verified 07/08/22 00:40 acetaminophen AdvReac Anaphylaxis Verified 07/08/22 00:40 [From [facility] Daytime Severe Cold] dextromethorphan AdvReac Anaphylaxis Verified 07/08/22 00:40 [From Theraflu Daytime Severe Cold] pseudoephedrine AdvReac Anaphylaxis Verified 07/08/22 00:40 [From Theraflu Daytime Severe Cold] Review of Systems ROS Constitutional Denies: fever or chills Ears, nose, mouth, and throat Denies: throat pain Cardiovascular Denies: chest pain Respiratory Reports: shortness of breath and cough Gastrointestinal Denies: nausea or vomiting Musculoskeletal Denies: back pain Integumentary/Breast Denies: rash Neurological Denies: headache Endocrine Denies: excessive urination PFSH PFSH Medical History Acute exacerbation of chronic obstructive pulmonary disease (COPD) ?J44.1 - Chronic obstructive pulmonary disease with (acute) exacerbation (ICD-10) Acute on chronic respiratory failure with hypoxia ?J96.21 - Acute and chronic respiratory failure with hypoxia (ICD-10) History of tobacco abuse ?Z87.891 - Personal history of nicotine dependence (ICD-10) Social History Smoking status: Former smoker Exam Narrative Exam Narrative: Gen.: Awake, alert, in no distress Head: Normocephalic, atraumatic ENT: Moist mucous membranes Respiratory: No respiratory distress, diminished lung sounds globally; oxygen by nasal cannula Cardio: Regular rate and rhythm Extremities: Moves extremities equally, no peripheral edema Psych: Normal mood and affect Neuro: No focal neuro deficit Skin: Warm, dry, intact Constitutional Vital Signs, click to edit/add: Last Vital Signs Temp 98.4 F 11/22/22 14:18 Pulse 115 H 11/22/22 16:00 Resp 20 11/22/22 16:00 BP 100/66 11/22/22 16:00 Pulse Ox 94 L 11/22/22 16:00 O2 Del Method Nasal Cannula 11/22/22 14:37 O2 Flow Rate 3 11/22/22 14:37 Course Vital Signs Vital signs: Vital Signs Temperature 98.4 F 11/22/22 14:18 Pulse Rate 118 H 11/22/22 14:18 Respiratory Rate 24 11/22/22 14:18 Blood Pressure 146/66 H 11/22/22 14:18 Temperature 98.4 F 11/22/22 14:18 Pulse Rate 115 H 11/22/22 16:00 Respiratory Rate 20 11/22/22 16:00 Blood Pressure 100/66 11/22/22 16:00 Pulse Oximetry 94 L 11/22/22 16:00 Oxygen Delivery Method Nasal Cannula 11/22/22 14:37 Oxygen Delivery Flow Rate 3 11/22/22 14:37 MDM - SOB/Dyspnea MDM Narrative Medical decision making narrative: patient was found to have unremarkable labs including d-dimer, troponin and BNP. He continues to have mild tachycardia and tachypnea. Chest x-ray with left lower lobe pneumonia. lactic acid and blood cultures added for the patient. He has no complaints of chest pain or nausea in the Emergency Room. He is given IV fluids after his BNP resulted. Discussed with hospitalist, we will admit for chronic obstructive pulmonary disease exacerbation left lower lobe pneumonia. Dr. Gandhi will order antibiotics for the patient. he is stable at time of admission. Medical Records Attestation: I reviewed the patient's medical records. Lab Data Attestation: I reviewed the patient's lab results. Labs: Lab Results 11/22/22 Range/Units 14:29 WBC 9.5 (4.0-11.0) 10^3/uL RBC 4.58 L (4.70-6.10) 10^6/uL Hgb 13.1 L (14.0-18.0) g/dL Hct 40.5 L (42.0-54.0) % MCV 88.4 (80.0-94.0) fL MCH 28.6 (25.9-34.0) pg MCHC 32.3 (29.9-35.2) g/dL RDW 11.8 (11.0-15.0) % Plt Count 229 (150-450) 10^3/uL MPV 9.5 (9.5-13.5) fL Neut % (Auto) 76.5 H (43.0-75.0) % Lymph % (Auto) 8.9 L (20.5-60.0) % Shackelford % (Auto) 12.4 H (1.7-12.0) % Eos % (Auto) 1.3 (0.9-7.0) % Baso % (Auto) 0.5 (0.2-2.0) % Neut # (Auto) 7.3 H (1.4-6.5) 10^3/uL Lymph # (Auto) 0.8 L (1.2-3.8) 10^3/uL Shackelford # (Auto) 1.2 H (0.3-0.8) 10^3/uL Eos # (Auto) 0.1 (0.0-0.7) 10^3/uL Baso # (Auto) 0.1 (0.0-0.1) 10^3/uL Abs Immat Gran (auto) 0.04 H (0.00-0.03) 10^3/uL Imm/Tot Granulo (auto) 0.4 (0.0-0.5) % PT 10.2 (9.0-11.6) sec INR 0.96 APTT 28.5 (22.3-36.2) sec D-Dimer <0.19 (<=0.59) mg/L FEU VBG pH 7.347 (7.330-7.430) VBG pCO2 66.8 H (40.0-52.0) mmHg Sodium 134 L (136-145) mmol/L Potassium 4.4 (3.5-5.1) mmol/L Chloride 97 L (98-107) mmol/L Carbon Dioxide 36.4 H (21.0-32.0) mmol/L Anion Gap 5.0 BUN 14.0 (7.0-18.0) mg/dL Creatinine 0.85 (0.70-1.30) mg/dL Est GFR ( Amer) >60 (>=60) Est GFR (Non-Af Amer) >60 (>=60) BUN/Creatinine Ratio 16.5 Glucose 108 H (74-106) mg/dL Calcium 9.5 (8.5-10.1) mg/dL Total Bilirubin 0.4 (0.2-1.0) mg/dL AST 34 (15-37) U/L ALT 30 (16-63) U/L Alkaline Phosphatase 86 (46-116) U/L Troponin I High Sens 13.4 (4.0-76.1) pg/mL NT-Pro-B Natriuret Pep 64.0 (<=900.0) pg/mL Total Protein 6.9 (6.4-8.2) g/dL Albumin 3.9 (3.4-5.0) g/dL Globulin 3.0 g/dL Albumin/Globulin Ratio 1.3 Imaging Data Chest x-ray: Attestation: I have reviewed the pertinent imaging results. Radiologist's impression: Procedure: XR chest 1V XR chest 1V, 11/22/2022 4:00 PM EDT, OH001 INDICATION: Shortness of breath COMPARISON: Chest radiograph from 09/09/2022 TECHNIQUE: 2 portable frontal views of the chest obtained. FINDINGS: The heart is normal in size. The aorta and mediastinum appear unremarkable. The pulmonary vasculature is normal. The lungs are hyperinflated which can be seen with reactive airways disease/COPD. Extensive emphysematous changes are again seen bilaterally. There is mild hazy infiltrate in the left lower lobe. Mild blunting of both costophrenic angles is again seen, which may be chronic. The osseous structures appear intact. IMPRESSION: COPD with hazy left lower lobe infiltrate. Electronically authenticated by: ZACH MELTON Date: 11/22/2022 16:15 ECG Data Attestation: I personally reviewed and interpreted this ECG as follows: (sinus tachycardia at a rate of 112, no acute ST elevation or ectopy. Right bundle branch block noted, EKG reviewed by attending physician) ECG interpretation date: 11/22/22 ECG interpretation time: 14:34 Discharge Plan Discharge Chief Complaint: Shortness of Breath/Dyspnea Clinical Impression: Shortness of breath, Community acquired pneumonia, Left lower lobe pneumonia Patient Disposition: Admitted As Inpatient Time of Disposition Decision: 16:23 Condition: Good
--- NOTE | 2022-11-22 14:24 | ECG_ITS ---
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
[2022-11-22] MEDS: ALBUTEROL SULFATE 2.5 MG/3 ML VIAL NEB IH (14:32)
[2022-11-22 14:41] LABS: PCO2 VBG 66.8 mmHg (40.0-52.0); pH VBG 7.347 (7.330-7.430)
[2022-11-22 14:44] LABS: Basophils Absolute Auto 0.1 10^3/uL (0.0-0.1); Basophils Percent Auto 0.5 % (0.2-2.0); Eosinophils Absolute Auto 0.1 10^3/uL (0.0-0.7); Eosinophils Percent Auto 1.3 % (0.9-7.0); Hematocrit 40.5 % (42.0-54.0); Hemoglobin 13.1 g/dL (14.0-18.0); Immature Granulocytes Abs Auto 0.04 10^3/uL (0.00-0.03); Immature Granulocytes Pct Auto 0.4 % (0.0-0.5); Lymphocytes Absolute Auto 0.8 10^3/uL (1.2-3.8); Lymphocytes Percent Auto 8.9 % (20.5-60.0); Mean Corpuscular HGB Conc 32.3 g/dL (29.9-35.2); Mean Corpuscular Hemoglobin 28.6 pg (25.9-34.0); Mean Corpuscular Volume 88.4 fL (80.0-94.0); Mean Platelet Volume 9.5 fL (9.5-13.5); Monocytes Absolute Auto 1.2 10^3/uL (0.3-0.8); Monocytes Percent Auto 12.4 % (1.7-12.0); Neutrophils Absolute Auto 7.3 10^3/uL (1.4-6.5); Neutrophils Percent Auto 76.5 % (43.0-75.0); Platelet Count 229 10^3/uL (150-450); Red Blood Count 4.58 10^6/uL (4.70-6.10); Red Cell Distribution Width 11.8 % (11.0-15.0); White Blood Count 9.5 10^3/uL (4.0-11.0)
[2022-11-22 15:01] LABS: Alanine Aminotransferase 30 U/L (16-63); Albumin Globulin Ratio 1.3; Albumin Level 3.9 g/dL (3.4-5.0); Alkaline Phosphatase 86 U/L (46-116); Aspartate Amino Transferase 34 U/L (15-37); BUN Creatinine Ratio 16.5; Bilirubin Total 0.4 mg/dL (0.2-1.0); Calcium 9.5 mg/dL (8.5-10.1); Carbon Dioxide 36.4 mmol/L (21.0-32.0); Chloride 97 mmol/L (98-107); Estimated GFR (African America >60 (>=60); Estimated GFR (Non-African Ame >60 (>=60); Glucose 108 mg/dL (74-106); Potassium 4.4 mmol/L (3.5-5.1); Sodium 134 mmol/L (136-145); Total Protein 6.9 g/dL (6.4-8.2); Troponin I High Sensitivity 13.4 pg/mL (4.0-76.1)
[2022-11-22 15:13] LABS: INR 0.96; Partial Thromboplastin Time 28.5 sec (22.3-36.2); Prothrombin Time 10.2 sec (9.0-11.6)
[2022-11-22 15:53] LABS: D Dimer <0.19 mg/L FEU (<=0.59)
--- NOTE | 2022-11-22 15:53 | XR_ITS ---
The [address] [address] Patient Name: SOFYA ORTA MRN: [id number] date: 1950 Sex: M Assigned Patient Location: ER Current Patient Location: ER Accession/Order Number: [id number] Exam Date: 11/22/2022 16:00 Report Date: 11/22/2022 16:15 At the request of: MARIA ELENA KHALIL Procedure: XR chest 1V XR chest 1V, 11/22/2022 4:00 PM EDT, OH001 INDICATION: Shortness of breath COMPARISON: Chest radiograph from 09/09/2022 TECHNIQUE: 2 portable frontal views of the chest obtained. FINDINGS: The heart is normal in size. The aorta and mediastinum appear unremarkable. The pulmonary vasculature is normal. The lungs are hyperinflated which can be seen with reactive airways disease/COPD. Extensive emphysematous changes are again seen bilaterally. There is mild hazy infiltrate in the left lower lobe. Mild blunting of both costophrenic angles is again seen, which may be chronic. The osseous structures appear intact. XR/XR chest 1V IMPRESSION: COPD with hazy left lower lobe infiltrate. Electronically authenticated by: ZACH MELTON Date: 11/22/2022 16:15
[2022-11-22] MEDS: 0.9 % SODIUM CHLORIDE 1,000 ML 1000 ML IV (16:46)
[2022-11-22 16:54] LABS: Lactate/Lactic Acid 1.3 mmol/L (0.4-2.0)
[2022-11-22 17:08] LABS: Adenovirus NOT DETECTED (NOT DETECTE); Bordetella parapertussis NOT DETECTED (NOT DETECTE); Coronavirus 229E NOT DETECTED (NOT DETECTE); Coronavirus HKU1 NOT DETECTED (NOT DETECTE); Coronavirus NL63 NOT DETECTED (NOT DETECTE); Coronavirus OC43 NOT DETECTED (NOT DETECTE); Human Metapneumovirus NOT DETECTED (NOT DETECTE); Human Rhinovirus/Enterovirus NOT DETECTED (NOT DETECTE); Influenza A NOT DETECTED (NOT DETECTE); Influenza B NOT DETECTED (NOT DETECTE); Mycoplasma pneumoniae NOT DETECTED (NOT DETECTE); Parainfluenza Virus 1 NOT DETECTED (NOT DETECTE); Parainfluenza Virus 2 NOT DETECTED (NOT DETECTE); Parainfluenza Virus 3 NOT DETECTED (NOT DETECTE); Parainfluenza Virus 4 NOT DETECTED (NOT DETECTE); Respiratory Syncytial Virus NOT DETECTED (NOT DETECTE); SARS-CoV-2 NOT DETECTED (NOT DETECTE)
[2022-11-22 17:10] LABS: SARS-CoV-2 Ag NEGATIVE (NEGATIVE)
[2022-11-22] MEDS: IPRATROPIUM/ALBUTEROL SULFATE 3 ML AMPUL.NEB IH (19:49)
[2022-11-22] MEDS: AZITHROMYCIN 500 MG in 0.9 % SODIUM CHLORIDE 250 ML 250 MG IV (20:17)
[2022-11-22] MEDS: THEOPHYLLINE 300 MG TAB.ER.12H PO (20:18)
[2022-11-22] MEDS: ATORVASTATIN CALCIUM 40 MG TABLET PO (20:18)
[2022-11-22] MEDS: TAMSULOSIN HCL 0.4 MG CAPSULE PO (20:18)
[2022-11-22] MEDS: ENOXAPARIN SODIUM 40 MG/0.4 ML SYRINGE SUBQ (20:18)
[2022-11-22] MEDS: METHYLPREDNISOLONE SOD SUCC PF 40 MG/ML VIAL IVP (20:19)
[2022-11-22] MEDS: PANTOPRAZOLE SODIUM 40 MG VIAL IV (20:19)
--- NOTE | 2022-11-22 21:00 | PM.HP ---
H&P: HPI History of Present Illness Chief complaint: SHORTNESS OF BREATH, COPD, LLL PNEUMONIA Narrative: Patient is a 72 y.o white male with past medical history of HTN, HLD, BPH, end stage COPD requiring chronic oxygen therapy, steroids and theophylline who presents today with a 3-5 days of increased chest tightness and shortness of breath. He also notes to be hot and cold at times but uncertain if he has had a true fever. He has also had a productive cough, clear. He says his chest gets really tight, much like he's having a panic attack and he's worried he will not catch his breath at all, he has anti anxiety pills he takes on rare occasions and tried one today without improvement of his symptoms so said it was time to come to the hospital. He follows regular with Dr. Singh of pulmonology. Review of Systems ROS Narrative ROS: a complete review of systems were reviewed with patient and are positive as below or listed in History of Chief Complaint. General: fever, chills, no night sweats Head: no headache, trauma, visual changes, nausea or vomiting Skin: no reported rashes, itching or sores Eyes: no blurriness of vision Ears: no reported hearing loss, vertigo, earache, or tinnitus Throat: no sore throat, hoarseness, swelling of neck, or tongue pain Heart: no chest pain Lungs: shortness of breath and productive cough GI: no diarrhea or vomiting/nausea Urinary: no urinary urgency, frequency or pain Neuro: no numbness or tingling HEM: no bleeding issues or bruising ENDO: no thyroid problems Psych: no anxiety or depression PFSH PFSH Medical History Acute exacerbation of chronic obstructive pulmonary disease (COPD) ?J44.1 - Chronic obstructive pulmonary disease with (acute) exacerbation (ICD-10) Acute on chronic respiratory failure with hypoxia ?J96.21 - Acute and chronic respiratory failure with hypoxia (ICD-10) High blood cholesterol ?E78.00 - Pure hypercholesterolemia, unspecified (ICD-10) History of tobacco abuse ?Z87.891 - Personal history of nicotine dependence (ICD-10) Surgical History H/O heart artery stent ?Z95.5 - Presence of coronary angioplasty implant and graft (ICD-10) H/O shoulder surgery ?Z98.890 - Other specified postprocedural states (ICD-10) Hx of inguinal hernia surgery ?Z98.890 - Other specified postprocedural states (ICD-10) ?Z87.19 - Personal history of other diseases of the digestive system (ICD-10) Family History Father Family history of hypertension Social History Within the past year, how often did you have a drink containing alcohol: never Score interpretation: A score less than 4 is consistent with normal alcohol consumption. Smoking status: Former smoker Non-prescribed substance use: denies use Previous occupational history: retired Highest level of school completed/degree received: high school graduate Are you now , , , , never or living with a partner: Little interest or pleasure in doing things: not at all Feeling down, depressed, or hopeless: not at all Feel stressed/tense/nervous/anxious/difficulty sleeping: not at all Gender Identity: male Meds Home Medications and Allergies Home Medications Medication Instructions Recorded Confirmed Type amlodipine 5 mg tablet 5 mg PO .daily 07/08/22 11/22/22 History aspirin 81 mg chewable tablet 81 mg PO QDAY 07/08/22 11/22/22 History fluticasone fur. 100 mcg-umeclid 1 inh inhalation Q24H 07/08/22 11/22/22 History 62.5 mcg-vilant 25 mcg inhalat.powder (Trelegy Ellipta) metoprolol succinate 25 mg 25 mg PO .daily 07/08/22 11/22/22 History tablet,extended release 24 hr pantoprazole 40 mg tablet,delayed 40 mg PO .daily 07/08/22 11/22/22 History release rosuvastatin 10 mg tablet 10 mg PO .daily 07/08/22 11/22/22 History spironolactone 25 mg tablet 25 mg PO .daily 07/08/22 11/22/22 History tamsulosin 0.4 mg capsule 0.4 mg PO Q24H 07/08/22 11/22/22 History theophylline 300 mg 300 mg PO Q24H 07/08/22 11/22/22 History tablet,extended release,12 hr prednisone 5 mg tablet 5 mg PO DAILY 11/22/22 11/22/22 History Allergies Allergy/AdvReac Type Severity Reaction Status Date / Time meperidine [From Demerol] Allergy Severe Anaphylaxis Verified 07/08/22 00:40 morphine Allergy Anaphylaxis Verified 07/08/22 00:40 acetaminophen AdvReac Anaphylaxis Verified 07/08/22 00:40 [From [facility] Daytime Severe Cold] dextromethorphan AdvReac Anaphylaxis Verified 07/08/22 00:40 [From [facility] Daytime Severe Cold] pseudoephedrine AdvReac Anaphylaxis Verified 07/08/22 00:40 [From [facility] Daytime Severe Cold] Exam Narrative Exam Narrative: General: Patient is alert, and oriented to person, place and time appears in mild respiratory distress, cachexia Skin: no visible rashes, or ulcers Head: atraumatic, acephalic Eyes: PERRLA, no nystagmus present, conjunctiva clear, no scleral icterus Ears: normal gross auditory acuity Nose: symmetric, no discharge, no maxillary or frontal sinus tenderness Mouth/Throat: no erythema, exudate, or tonsillar enlargement, normal dentition Neck: no masses palpated, normal thyroid Heart: Normal rate and rhythm, no murmurs/rubs/gallops Lungs: audible wheezes, diminished breath sounds all lung vergara, Barrel chest Abdomen: Normal audible bowel sounds, no distension, No palpable masses, no organomegaly, no rebound/guarding/ or rigidity Musculoskeletal: no swelling bilateral lower extremities Neuro: CN II-X grossly intact, normal sensation upper and lower extremities Constitutional Vital Signs, click to edit/add: Last Vital Signs Temp 97.4 F L 11/22/22 20:46 Pulse 114 H 11/22/22 20:46 Resp 22 11/22/22 20:46 BP 135/61 11/22/22 20:46 Pulse Ox 90 L 11/22/22 20:47 O2 Del Method Nasal Cannula 11/22/22 20:47 O2 Flow Rate 3.5 11/22/22 20:47 Results Labs Labs: Short CBC 11/22/22 Range/Units 14:29 WBC 9.5 (4.0-11.0) 10^3/uL Hgb 13.1 L (14.0-18.0) g/dL Hct 40.5 L (42.0-54.0) % Plt Count 229 (150-450) 10^3/uL BMP 11/22/22 14:29 Sodium 134 L Potassium 4.4 Chloride 97 L Carbon Dioxide 36.4 H BUN 14.0 Creatinine 0.85 Glucose 108 H Calcium 9.5 Liver Function 11/22/22 Range/Units 14:29 Total Bilirubin 0.4 (0.2-1.0) mg/dL AST 34 (15-37) U/L ALT 30 (16-63) U/L Alkaline Phosphatase 86 (46-116) U/L Albumin 3.9 (3.4-5.0) g/dL ABG ABG results: 11/22/22 14:29 VBG pH 7.347 VBG pCO2 66.8 H Assessment and Plan Assessment and Plan (1) Community acquired pneumonia: Assessment and Plan: seen on chest Xray in [facility]. patient placed on azithromycin and rocephin, scheduled duonebs, pulmicort, and albuterol as needed. Solumedrol 40mg q6. Patient reports he was scheduled for CT of the chest tomorrow. I will order tomorrow. Patient of Dr. Singh's, consult placed to him. (2) Acute exacerbation of chronic obstructive pulmonary disease (COPD): Assessment and Plan: treat underlying pneumonia, addition of IV steroids (3) Acute on chronic respiratory failure with hypoxia: Assessment and Plan: requiring more oxygen at 4 L NC up from usual 2.5L NC to maintain >89%, secondary to PNA (4) History of tobacco abuse: Assessment and Plan: not current (5) Hyperlipidemia: Assessment and Plan: continue statin (6) Hypertension: Assessment and Plan: continue spironolactone, metoprolol, amlodipine and aspirin Plan patient is a full code, and is ok with intubation if he would require it Lovenox for DVT prophylaxis patient is inpatient status and is expected to stay more than 2 midnights
[2022-11-22] MEDS: CEFTRIAXONE 1,000 MG in 0.9 % SODIUM CHLORIDE 50 ML 100 MG IV (21:44)
--- NOTE | 2022-11-22 22:35 | RESP.RT ---
Pt placed on Vapotherm 30L, Fi02 35% at this time due to increased work of breathing. Sp02 96%, RR 26, HR 104.
[2022-11-22] MEDS: BUDESONIDE 0.5 MG/2 ML AMPULE NEB IH (22:36)
[2022-11-22] MEDS: LEVALBUTEROL HCL 0.63 MG/3 ML VIAL.NEB IH (22:36)
--- NOTE | 2022-11-22 22:46 | RESP.RT ---
PEP not done at this time due to pt being short of breath.
[2022-11-23] VITALS (23 sets, daily range): BP systolic 98–145; BP diastolic 57–72; PULSE 89–118; RESP 12–24; TEMP 36.6–36.8; O2SAT 90–106; BMI 17.8
[2022-11-23] MEDS: LEVALBUTEROL HCL 0.63 MG/3 ML VIAL.NEB IH (03:22)
[2022-11-23] MEDS: METHYLPREDNISOLONE SOD SUCC PF 40 MG/ML VIAL IVP ×4 (03:41→21:11)
[2022-11-23 04:45] LABS: Hematocrit 34.6 % (42.0-54.0); Immature Granulocytes Abs Auto 0.02 10^3/uL (0.00-0.03); Immature Granulocytes Pct Auto 0.3 % (0.0-0.5); Lymphocytes Absolute Auto 0.2 10^3/uL (1.2-3.8); Mean Corpuscular HGB Conc 31.8 g/dL (29.9-35.2); Mean Corpuscular Hemoglobin 28.1 pg (25.9-34.0); Mean Corpuscular Volume 88.3 fL (80.0-94.0); Mean Platelet Volume 9.7 fL (9.5-13.5); Monocytes Absolute Auto 0.2 10^3/uL (0.3-0.8); Monocytes Percent Auto 3.3 % (1.7-12.0); Neutrophils Absolute Auto 5.3 10^3/uL (1.4-6.5); Neutrophils Percent Auto 92.4 % (43.0-75.0); Platelet Count 192 10^3/uL (150-450); Red Blood Count 3.92 10^6/uL (4.70-6.10); Red Cell Distribution Width 11.9 % (11.0-15.0); White Blood Count 5.7 10^3/uL (4.0-11.0)
[2022-11-23 05:12] LABS: Alanine Aminotransferase 26 U/L (16-63); Albumin Globulin Ratio 1.2; Albumin Level 3.2 g/dL (3.4-5.0); Alkaline Phosphatase 66 U/L (46-116); Anion Gap 4.9; Aspartate Amino Transferase 20 U/L (15-37); BUN Creatinine Ratio 16.7; Bilirubin Total 0.3 mg/dL (0.2-1.0); Calcium 9.1 mg/dL (8.5-10.1); Chloride 99 mmol/L (98-107); Estimated GFR (African America >60 (>=60); Estimated GFR (Non-African Ame >60 (>=60); Globulin 2.6 g/dL; Glucose 110 mg/dL (74-106); Magnesium 1.6 mg/dL (1.8-2.4); Potassium 4.9 mmol/L (3.5-5.1); Sodium 134 mmol/L (136-145); Total Protein 5.8 g/dL (6.4-8.2)
[2022-11-23] MEDS: SPIRONOLACTONE 25 MG TABLET PO (05:45)
[2022-11-23] MEDS: IPRATROPIUM/ALBUTEROL SULFATE 3 ML AMPUL.NEB IH ×5 (07:20→23:16)
--- NOTE | 2022-11-23 08:57 | PM.PN ---
Progress Note: Subjective Subjective Interval history: patient was transitioned to the Vapotherm last night. This morning he says he is feeling slightly better, although chest still feels tight and he still feels like it's difficult to breathe at times. He notes he did get some rest he denies any fevers or chills this morning. Coughing has also improved. Exam Narrative Exam Narrative: General: Patient is alert, and oriented to person, place and time appears in mild respiratory distress, cachexia Skin: no visible rashes, or ulcers Head: atraumatic, acephalic Eyes: PERRLA, no nystagmus present, conjunctiva clear, no scleral icterus Ears: normal gross auditory acuity Nose: symmetric, no discharge, no maxillary or frontal sinus tenderness Mouth/Throat: no erythema, exudate, or tonsillar enlargement, normal dentition Neck: no masses palpated, normal thyroid Heart: Normal rate and rhythm, no murmurs/rubs/gallops Lungs: audible wheezes, diminished breath sounds all lung vergara, Barrel chest Abdomen: Normal audible bowel sounds, no distension, No palpable masses, no organomegaly, no rebound/guarding/ or rigidity Musculoskeletal: no swelling bilateral lower extremities Neuro: CN II-X grossly intact, normal sensation upper and lower extremities Constitutional Vital Signs, click to edit/add: Last Vital Signs Temp 97.9 F 11/23/22 06:29 Pulse 104 H 11/23/22 08:00 Resp 12 11/23/22 07:21 BP 98/57 11/23/22 06:29 Pulse Ox 98 11/23/22 07:21 O2 Del Method Vapotherm 11/23/22 07:21 O2 Flow Rate 30 11/23/22 07:21 FiO2 35 11/23/22 07:21 Progress Note: Objective Labs Labs: Short CBC 11/22/22 11/23/22 Range/Units 14:29 04:17 WBC 9.5 5.7 (4.0-11.0) 10^3/uL Hgb 13.1 L 11.0 L (14.0-18.0) g/dL Hct 40.5 L 34.6 L (42.0-54.0) % Plt Count 229 192 (150-450) 10^3/uL BMP 11/22/22 11/23/22 14:29 04:17 Sodium 134 L 134 L Potassium 4.4 4.9 Chloride 97 L 99 Carbon Dioxide 36.4 H 35.0 H BUN 14.0 13.0 Creatinine 0.85 0.78 Glucose 108 H 110 H Calcium 9.5 9.1 Liver Function 11/22/22 11/23/22 Range/Units 14:29 04:17 Total Bilirubin 0.4 0.3 (0.2-1.0) mg/dL AST 34 20 (15-37) U/L ALT 30 26 (16-63) U/L Alkaline Phosphatase 86 66 (46-116) U/L Albumin 3.9 3.2 L (3.4-5.0) g/dL Progress Note: A&P Assessment and Plan (1) Community acquired pneumonia: Assessment and Plan: seen on chest Xray in [facility]. patient placed on azithromycin and rocephin, scheduled duonebs, pulmicort, and albuterol as needed. Solumedrol 40mg q6. Patient reports he was scheduled for CT of the chest tomorrow. I will as if Dr. Singh would like while in the hospital. (2) Acute exacerbation of chronic obstructive pulmonary disease (COPD): Assessment and Plan: treat underlying pneumonia, addition of IV steroids, vapotherm (3) Acute on chronic respiratory failure with hypoxia: Assessment and Plan: requiring more oxygen at 4 L NC up from usual 2.5L NC to maintain >89%, secondary to PNA (4) History of tobacco abuse: (5) Hyperlipidemia: Assessment and Plan: continue statin (6) Hypertension: Assessment and Plan: continue spironolactone, metoprolol, amlodipine and aspirin Plan patient is a full code, and is ok with intubation if he would require it Lovenox for DVT prophylaxis patient is inpatient status and is expected to stay more than 2 midnights
[2022-11-23] MEDS: AMLODIPINE BESYLATE 5 MG TABLET PO (09:15)
[2022-11-23] MEDS: ASPIRIN 81 MG TAB.CHEW PO (09:15)
[2022-11-23] MEDS: METOPROLOL SUCCINATE 25 MG TAB.ER.24H PO (09:15)
[2022-11-23] MEDS: CEFTRIAXONE 1,000 MG in 0.9 % SODIUM CHLORIDE 50 ML 100 MG IV ×2 (10:38→23:30)
[2022-11-23] MEDS: BUDESONIDE 0.5 MG/2 ML AMPULE NEB IH ×2 (11:13→23:16)
--- NOTE | 2022-11-23 11:21 | RESP.RT ---
Weaning down to 5L NC
--- NOTE | 2022-11-23 11:34 | RESP.RT ---
Placed pt on 3L (wears at home) due to high SpO2. Tolerating well
--- NOTE | 2022-11-23 11:39 | CM.NOTE ---
Rounds made with Dr. Gandhi, pt on vapotherm at this time. Pt does wear home oxygen @ 2.5L NC. Dr. Gandhi put consult into Dr. Singh. PT and OT will evaluate pt today, will follow for any discharge needs. Pt has had [facility] in the past.
--- NOTE | 2022-11-23 12:34 | CM.NOTE ---
Discussed with pt about pulmonary rehab and chronic disease process. Pt states he has never done pulmonary rehab, pt given pamphlet and education. When leaving pt's room Dr. Singh was on Med-Surg floor and voices pt has done pulmonary rehab in the past. Pt's lung condition may be too far progressed at this point. Dr. Singh going to evaluate pt at this time.
--- NOTE | 2022-11-23 12:39 | CM.NOTE ---
Important Message From [employer] discussed with pt, pt verbalizes understanding and signs paper. Original given to pt and copy placed on pt's chart.
[2022-11-23] MEDS: ENSURE HP 237 ML LIQUID PO ×2 (14:26→21:10)
[2022-11-23 15:24] LABS: SARS-CoV-2 NAA NOT DETECTED (NOT DETECTE)
--- NOTE | 2022-11-23 16:01 | SWNOTE1 ---
Pt does wear 2.5 liters of home oxygen.
--- NOTE | 2022-11-23 16:11 | SWNOTE1 ---
SW met with pt to discuss dc needs. Pt does live at home with his one son who assists with grocery shopping, cooking, laundry, etc. His other son lives close by and he helps with doing the lawn. Pt does not usually use any DME to walk with. Pt has home oxygen through [employer], 2.5 liters. Pt feels he is doing well at home and has no concerns about going home. SW did look over therapy and OT recommended HH. SW asked pt about this and he does not feel he needs it and he rememebers all the exercises and stays active. Pt was just having some trouble breathing, but is feeling better. At this time pt denies any needs at discharge, SW to follow as needed.
[2022-11-23] MEDS: ENOXAPARIN SODIUM 40 MG/0.4 ML SYRINGE SUBQ (17:07)
[2022-11-23] MEDS: AZITHROMYCIN 500 MG in 0.9 % SODIUM CHLORIDE 250 ML 125 MG IV (21:10)
[2022-11-23] MEDS: PANTOPRAZOLE SODIUM 40 MG VIAL IV (21:10)
[2022-11-23] MEDS: ATORVASTATIN CALCIUM 40 MG TABLET PO (21:11)
[2022-11-23] MEDS: THEOPHYLLINE 300 MG TAB.ER.12H PO (21:11)
[2022-11-23] MEDS: TAMSULOSIN HCL 0.4 MG CAPSULE PO (21:12)
--- NOTE | 2022-11-23 21:45 | PM.PLCN ---
History of Present Illness History of Present Illness Consult date: 11/23/22 Requesting physician: Anna Gandhi Reason for consult: COPD Chief complaint: SHORTNESS OF BREATH, COPD, LLL PNEUMONIA Narrative: 72yo male, well known to me as I have seen him in my clinic for years regarding very severe COPD. He is O2- and prednisone-dependent. Over the past 6 months, I have noticed a slow decline in his function and pulmonary status. Over the past several days, he was having increased dyspnea. At first, he thought it was one of his panic attacks he occasionally has, but it progressed to something more severe. He tried pursed lip breathing without improvement. He then used his pulmonary medications without any improvement. He stated he was afraid he was going to from not getting enough air and called 911. He came to the ER and was evaluated. PFSH PFSH Medical History Acute exacerbation of chronic obstructive pulmonary disease (COPD) ?J44.1 - Chronic obstructive pulmonary disease with (acute) exacerbation (ICD-10) Acute on chronic respiratory failure with hypoxia ?J96.21 - Acute and chronic respiratory failure with hypoxia (ICD-10) High blood cholesterol ?E78.00 - Pure hypercholesterolemia, unspecified (ICD-10) History of tobacco abuse ?Z87.891 - Personal history of nicotine dependence (ICD-10) Surgical History H/O heart artery stent ?Z95.5 - Presence of coronary angioplasty implant and graft (ICD-10) H/O shoulder surgery ?Z98.890 - Other specified postprocedural states (ICD-10) Hx of inguinal hernia surgery ?Z98.890 - Other specified postprocedural states (ICD-10) ?Z87.19 - Personal history of other diseases of the digestive system (ICD-10) Family History Father Family history of hypertension Social History Within the past year, how often did you have a drink containing alcohol: never Score interpretation: A score less than 4 is consistent with normal alcohol consumption. Smoking status: Former smoker Non-prescribed substance use: denies use Previous occupational history: retired Highest level of school completed/degree received: high school graduate Are you now , , , , never or living with a partner: Little interest or pleasure in doing things: not at all Feeling down, depressed, or hopeless: not at all Feel stressed/tense/nervous/anxious/difficulty sleeping: not at all Gender Identity: male Meds Home Medications and Allergies Home Medications Medication Instructions Recorded Confirmed Type amlodipine 5 mg tablet 5 mg PO QDAY 07/08/22 11/23/22 History aspirin 81 mg chewable tablet 81 mg PO QDAY 07/08/22 11/22/22 History fluticasone fur. 100 mcg-umeclid 1 inh inhalation Q24H 07/08/22 11/22/22 History 62.5 mcg-vilant 25 mcg inhalat.powder (Trelegy Ellipta) metoprolol succinate 25 mg 25 mg PO DAILY 07/08/22 11/23/22 History tablet,extended release 24 hr pantoprazole 40 mg tablet,delayed 40 mg PO DAILY 07/08/22 11/23/22 History release rosuvastatin 10 mg tablet 10 mg PO DAILY 07/08/22 11/23/22 History spironolactone 25 mg tablet 25 mg PO DAILY 07/08/22 11/23/22 History tamsulosin 0.4 mg capsule 0.4 mg PO Q24H 07/08/22 11/22/22 History theophylline 300 mg 300 mg PO Q24H 07/08/22 11/22/22 History tablet,extended release,12 hr prednisone 5 mg tablet 5 mg PO DAILY 11/22/22 11/22/22 History Allergies Allergy/AdvReac Type Severity Reaction Status Date / Time meperidine [From Demerol] Allergy Severe Anaphylaxis Verified 07/08/22 00:40 morphine Allergy Anaphylaxis Verified 07/08/22 00:40 acetaminophen AdvReac Anaphylaxis Verified 07/08/22 00:40 [From Theraflu Daytime Severe Cold] dextromethorphan AdvReac Anaphylaxis Verified 07/08/22 00:40 [From Theraflu Daytime Severe Cold] pseudoephedrine AdvReac Anaphylaxis Verified 07/08/22 00:40 [From Theraflu Daytime Severe Cold] Exam Constitutional Vital Signs, click to edit/add: Last Vital Signs Temp 98.3 F 11/23/22 19:00 Pulse 118 H 11/23/22 20:00 Resp 20 11/23/22 20:00 BP 145/68 H 11/23/22 19:00 Pulse Ox 95 11/23/22 19:12 O2 Del Method Nasal Cannula 11/23/22 19:12 O2 Flow Rate 3 11/23/22 19:12 FiO2 35 11/23/22 11:14 Results Laboratory Findings ABG, PT/INR, D-dimer: PT/INR, D-dimer PT 10.2 sec (9.0-11.6) 11/22/22 14:29 INR 0.96 11/22/22 14:29 D-Dimer <0.19 mg/L FEU (<=0.59) 11/22/22 14:29 Abnormal lab findings: Abnormal Labs 11/22/22 11/23/22 14:29 04:17 RBC 4.58 L 3.92 L Hgb 13.1 L 11.0 L Hct 40.5 L 34.6 L Neut % (Auto) 76.5 H 92.4 H Lymph % (Auto) 8.9 L 4.0 L [place] % (Auto) 12.4 H Eos % (Auto) 0.0 L Baso % (Auto) 0.0 L Neut # (Auto) 7.3 H Lymph # (Auto) 0.8 L 0.2 L [place] # (Auto) 1.2 H 0.2 L Abs Immat Gran (auto) 0.04 H VBG pCO2 66.8 H Sodium 134 L 134 L Chloride 97 L Carbon Dioxide 36.4 H 35.0 H Glucose 108 H 110 H Magnesium 1.6 L Total Protein 5.8 L Albumin 3.2 L Assessment and Plan Assessment and Plan (1) Community acquired pneumonia: (2) Acute exacerbation of chronic obstructive pulmonary disease (COPD): (3) Acute on chronic respiratory failure with hypoxia: (4) History of tobacco abuse: (5) Hyperlipidemia: (6) Hypertension:
[2022-11-24] VITALS (22 sets, daily range): BP systolic 119–160; BP diastolic 57–81; PULSE 86–115; RESP 18–24; TEMP 36.7–36.8; O2SAT 90–97
--- NOTE | 2022-11-24 00:25 | PC.NURSE ---
crm technical lead called and pt was reading low, checked probe, it had moved on finger. a few minutes alter O2 alarm went off and was down to 84%, chck pt. Pt was ok, he had shifted and was sleeping on his right hand where the probe was, swithch hands and sats jumped back up to WNL
[2022-11-24] MEDS: IPRATROPIUM/ALBUTEROL SULFATE 3 ML AMPUL.NEB IH ×6 (03:51→23:28)
[2022-11-24] MEDS: METHYLPREDNISOLONE SOD SUCC PF 40 MG/ML VIAL IVP ×4 (04:42→20:41)
[2022-11-24 04:44] LABS: Basophils Percent Auto 0.1 % (0.2-2.0); Hematocrit 37.3 % (42.0-54.0); Hemoglobin 11.6 g/dL (14.0-18.0); Immature Granulocytes Abs Auto 0.03 10^3/uL (0.00-0.03); Immature Granulocytes Pct Auto 0.2 % (0.0-0.5); Lymphocytes Absolute Auto 0.3 10^3/uL (1.2-3.8); Lymphocytes Percent Auto 2.1 % (20.5-60.0); Mean Corpuscular HGB Conc 31.1 g/dL (29.9-35.2); Mean Corpuscular Hemoglobin 27.8 pg (25.9-34.0); Mean Corpuscular Volume 89.2 fL (80.0-94.0); Mean Platelet Volume 9.5 fL (9.5-13.5); Monocytes Absolute Auto 0.7 10^3/uL (0.3-0.8); Monocytes Percent Auto 5.3 % (1.7-12.0); Neutrophils Absolute Auto 11.4 10^3/uL (1.4-6.5); Neutrophils Percent Auto 92.3 % (43.0-75.0); Platelet Count 211 10^3/uL (150-450); Red Blood Count 4.18 10^6/uL (4.70-6.10); Red Cell Distribution Width 11.9 % (11.0-15.0); White Blood Count 12.4 10^3/uL (4.0-11.0)
[2022-11-24 05:14] LABS: Alanine Aminotransferase 27 U/L (16-63); Albumin Globulin Ratio 1.2; Albumin Level 3.3 g/dL (3.4-5.0); Alkaline Phosphatase 67 U/L (46-116); Anion Gap 6.5; Aspartate Amino Transferase 30 U/L (15-37); BUN Creatinine Ratio 23.1; Bilirubin Total 0.2 mg/dL (0.2-1.0); Calcium 9.3 mg/dL (8.5-10.1); Carbon Dioxide 35.1 mmol/L (21.0-32.0); Chloride 99 mmol/L (98-107); Estimated GFR (African America >60 (>=60); Estimated GFR (Non-African Ame >60 (>=60); Globulin 2.8 g/dL; Glucose 120 mg/dL (74-106); Magnesium 1.8 mg/dL (1.8-2.4); Potassium 4.6 mmol/L (3.5-5.1); Sodium 136 mmol/L (136-145); Total Protein 6.1 g/dL (6.4-8.2)
[2022-11-24 05:17] LABS: Theophylline 11.2 ug/mL (10.0-20.0)
[2022-11-24] MEDS: SPIRONOLACTONE 25 MG TABLET PO (06:58)
--- NOTE | 2022-11-24 08:06 | P.PN_ITS ---
Progress Note: Subjective Subjective Interval history: patient was transitioned to the Vapotherm yesterday. This morning he says he is feeling slightly better, although chest still feels tight and he still feels like it's difficult to breathe at times. He notes he did get some rest he denies any fevers or chills this morning. Coughing has also improved. Episodes of feeling flushed and cannot breath but then improves after a few seconds, gets shaky. That's his only complaint. More panic attack he says. Exam Narrative Exam Narrative: General: Patient is alert, and oriented to person, place and time appears in mild respiratory distress, cachexia Skin: no visible rashes, or ulcers Head: atraumatic, acephalic Eyes: PERRLA, no nystagmus present, conjunctiva clear, no scleral icterus Ears: normal gross auditory acuity Nose: symmetric, no discharge, no maxillary or frontal sinus tenderness Mouth/Throat: no erythema, exudate, or tonsillar enlargement, normal dentition Neck: no masses palpated, normal thyroid Heart: Normal rate and rhythm, no murmurs/rubs/gallops Lungs: audible wheezes, diminished breath sounds all lung vergara, Barrel chest Abdomen: Normal audible bowel sounds, no distension, No palpable masses, no organomegaly, no rebound/guarding/ or rigidity Musculoskeletal: no swelling bilateral lower extremities Neuro: CN II-X grossly intact, normal sensation upper and lower extremities Constitutional Vital Signs, click to edit/add: Last Vital Signs Temp 98.0 F 11/24/22 06:00 Pulse 110 H 11/24/22 07:58 Resp 24 11/24/22 06:00 BP 146/63 H 11/24/22 06:58 Pulse Ox 96 11/24/22 07:58 O2 Del Method Nasal Cannula 11/24/22 07:31 O2 Flow Rate 3 11/24/22 07:31 FiO2 35 11/23/22 11:14 Progress Note: Objective Labs Labs: Short CBC 11/24/22 Range/Units 04:12 WBC 12.4 H (4.0-11.0) 10^3/uL Hgb 11.6 L (14.0-18.0) g/dL Hct 37.3 L (42.0-54.0) % Plt Count 211 (150-450) 10^3/uL BMP 11/24/22 04:12 Sodium 136 Potassium 4.6 Chloride 99 Carbon Dioxide 35.1 H BUN 18.0 Creatinine 0.78 Glucose 120 H Calcium 9.3 Liver Function 11/24/22 Range/Units 04:12 Total Bilirubin 0.2 (0.2-1.0) mg/dL AST 30 (15-37) U/L ALT 27 (16-63) U/L Alkaline Phosphatase 67 (46-116) U/L Albumin 3.3 L (3.4-5.0) g/dL Progress Note: A&P Assessment and Plan (1) Community acquired pneumonia: Assessment and Plan: seen on chest Xray in [facility]. patient placed on azithromycin and rocephin, scheduled duonebs, pulmicort, and albuterol as needed. Solumedrol 40mg q6. (2) Acute exacerbation of chronic obstructive pulmonary disease (COPD): Assessment and Plan: treat underlying pneumonia, addition of IV steroids, vapotherm (3) Acute on chronic respiratory failure with hypoxia: Assessment and Plan: requiring more oxygen at 4 L NC up from usual 2.5L NC to maintain >89%, secondary to PNA (4) History of tobacco abuse: (5) Hyperlipidemia: Assessment and Plan: continue statin (6) Hypertension: Assessment and Plan: continue spironolactone, metoprolol, amlodipine and aspirin Plan patient is a full code, and is ok with intubation if he would require it Lovenox for DVT prophylaxis patient is inpatient status and is expected to stay more than 2 midnights
[2022-11-24] MEDS: ENSURE HP 237 ML LIQUID PO ×2 (10:30→20:23)
[2022-11-24] MEDS: METOPROLOL SUCCINATE 25 MG TAB.ER.24H PO (10:31)
[2022-11-24] MEDS: AMLODIPINE BESYLATE 5 MG TABLET PO (10:31)
[2022-11-24] MEDS: ASPIRIN 81 MG TAB.CHEW PO (10:31)
--- NOTE | 2022-11-24 10:35 | CM.NOTE ---
Rounds made with Dr. Gandhi, on arrival into room pt very dyspneic. Pt had just finished breakfast, he relates this to his increased SOB. No discharge today.
[2022-11-24] MEDS: BUDESONIDE 0.5 MG/2 ML AMPULE NEB IH ×2 (11:06→23:28)
--- NOTE | 2022-11-24 11:09 | RESP.RT ---
AMU charted this is patients NORMAL breathing pattern
--- NOTE | 2022-11-24 11:17 | XR_ITS ---
The [address] [address] Patient Name: SOFYA ORTA MRN: [id number] date: 1950 Sex: M Assigned Patient Location: [place] Current Patient Location: Accession/Order Number: [id number] Exam Date: 11/24/2022 11:40 Report Date: 11/24/2022 12:00 At the request of: LASHA QUINN Procedure: XR chest 1V EXAMINATION: XR chest 1V 11/24/2022 8:58 AM PDT HISTORY: shortness of breath TECHNIQUE: Single frontal view of the chest acquired. COMPARISONS: Chest x-ray 11/22/2022. FINDINGS: Lines/tubes/other: None. Heart and mediastinum: Stable. Bones: No acute osseous abnormality. Lungs: Mild hazy opacification of the left base, similar. Mild right basilar atelectasis and/or scarring. No new or worsening pulmonary opacity. There is emphysema. Pleura: There is no significant pleural effusion or pneumothorax. Other: Flattening of the diaphragms compatible with COPD. XR/XR chest 1V IMPRESSION: Similar appearance of the mild left basilar opacification. No new or worsening cardiopulmonary abnormality demonstrated. Electronically authenticated by: GERTRUDIS MONTGOMERY Date: 11/24/2022 12:00
--- NOTE | 2022-11-24 12:02 | SWNOTE1 ---
SW received a message from dietary and pt would benefit from meals on wheels possibly. SW spoke with pt and he does have interest in meals on wheels. SW to send referral and clarified his address and phone number.
--- NOTE | 2022-11-24 12:08 | SWNOTE1 ---
SW called and left message for [facility] delivered meals program, waiting for call back.
[2022-11-24] MEDS: CEFTRIAXONE 1,000 MG in 0.9 % SODIUM CHLORIDE 50 ML 100 MG IV ×2 (12:17→21:38)
--- NOTE | 2022-11-24 12:24 | P.PLPN_ITS ---
Progress Note: A&P Assessment and Plan (1) Acute exacerbation of chronic obstructive pulmonary disease (COPD): Assessment and Plan: 1) AECOPD secondary to pneumonia. Continue current treatment. Theophylline level 11 - no plans to increase dose further as potential adverse effects could make his panic attacks/anxiety worse. 2) Community acquired pneumonia. Vanessa on sputum is NOT the cause of pneumonia - it is common oral jenni. CXR no change, but decreased crackles in left base on exam. Having difficulty expectorating - will add hypertonic saline nebs. Continue using PEP. Pulmonary toilet! 3) Chronic hypoxic respiratory failure. Monitor oxygenation. 4) Panic attacks. Continue anxiolytics. 5) Pulmonary cachexia. Healthy calories, protein. Home Health Clinical Supervisor referred. 6) History of tobacco abuse. Subjective Subjective Interval history: Patient states that he is feeling about the same. When I spoke with the RN, she said the patient told her that he felt better. When I spoke with Dr. Disha Gandhi, she said she felt he was worse than yesterday. He says that he continues to have panic attacks and hot flashes...he is constantly adjusting the temperature in the room to feel better. He says the most bothersome issue is his coughing - he brings up tiny chunks but can't get it out. Reviewed CXR - no change in LLL infiltrate. Theophylline level good at 11. Exam Constitutional Vital Signs, click to edit/add: Last Vital Signs Temp 98.0 F 11/24/22 06:00 Pulse 114 H 11/24/22 12:06 Resp 24 11/24/22 06:00 BP 125/57 11/24/22 10:37 Pulse Ox 96 11/24/22 12:06 O2 Del Method Nasal Cannula 11/24/22 11:07 O2 Flow Rate 3 11/24/22 11:07 FiO2 35 11/23/22 11:14 Documenting provider has reviewed patient's vital signs: yes Nutritional appearance: cachectic HENMT Other: Upper dentures. No oral candidiasis. Wearing nasal cannula. Chest Common normals: inspection of chest normal Chest: symmetrical chest wall rise Respiratory Other: Pursed lip breathing. Very diminished breath sounds. Decreased crackles in bases - none on right, some on left. No wheezes. Cardio Rate: regular rate Rhythm: regular rhythm GI Inspection: scaphoid Auscultation: normoactive bowel sounds Palpation: soft Extremity Common normals: no clubbing, cyanosis or edema Neuro Common normals: CN's II-XII intact bilaterally Psych Activity/motor behavior: appropriate eye contact Other: Mildly anxious
--- NOTE | 2022-11-24 14:56 | SWNOTE1 ---
SW spoke with Home delivered meal program from [facility] and they took down pt's name and number and will call before they start delivery. They would start Tuesday if pt would like them to. SW to let pt know.
[2022-11-24] MEDS: ENOXAPARIN SODIUM 40 MG/0.4 ML SYRINGE SUBQ (16:28)
[2022-11-24] MEDS: SODIUM CHLORIDE 3% INHALATION 15 ML NEB 3 ML IH (19:28)
[2022-11-24] MEDS: ATORVASTATIN CALCIUM 40 MG TABLET PO (20:22)
[2022-11-24] MEDS: THEOPHYLLINE 300 MG TAB.ER.12H PO (20:22)
[2022-11-24] MEDS: AZITHROMYCIN 500 MG in 0.9 % SODIUM CHLORIDE 250 ML 250 MG IV (20:22)
[2022-11-24] MEDS: TAMSULOSIN HCL 0.4 MG CAPSULE PO (20:22)
[2022-11-24] MEDS: PANTOPRAZOLE SODIUM 40 MG VIAL IV (20:41)
[2022-11-25] VITALS (23 sets, daily range): BP systolic 122–138; BP diastolic 61–70; PULSE 94–113; RESP 18–20; TEMP 36.8–37.1; O2SAT 91–99
[2022-11-25] MEDS: METHYLPREDNISOLONE SOD SUCC PF 40 MG/ML VIAL IVP ×4 (02:53→21:39)
[2022-11-25] MEDS: IPRATROPIUM/ALBUTEROL SULFATE 3 ML AMPUL.NEB IH ×6 (03:56→23:27)
[2022-11-25 05:06] LABS: Basophils Percent Auto 0.1 % (0.2-2.0); Hematocrit 34.6 % (42.0-54.0); Hemoglobin 10.7 g/dL (14.0-18.0); Immature Granulocytes Abs Auto 0.04 10^3/uL (0.00-0.03); Immature Granulocytes Pct Auto 0.3 % (0.0-0.5); Lymphocytes Absolute Auto 0.2 10^3/uL (1.2-3.8); Lymphocytes Percent Auto 1.7 % (20.5-60.0); Mean Corpuscular HGB Conc 30.9 g/dL (29.9-35.2); Mean Corpuscular Hemoglobin 27.6 pg (25.9-34.0); Mean Corpuscular Volume 89.2 fL (80.0-94.0); Mean Platelet Volume 9.8 fL (9.5-13.5); Monocytes Absolute Auto 0.9 10^3/uL (0.3-0.8); Neutrophils Absolute Auto 11.3 10^3/uL (1.4-6.5); Neutrophils Percent Auto 90.9 % (43.0-75.0); Platelet Count 210 10^3/uL (150-450); Red Blood Count 3.88 10^6/uL (4.70-6.10); Red Cell Distribution Width 11.9 % (11.0-15.0); White Blood Count 12.4 10^3/uL (4.0-11.0)
[2022-11-25 05:26] LABS: Alanine Aminotransferase 27 U/L (16-63); Albumin Globulin Ratio 1.3; Alkaline Phosphatase 60 U/L (46-116); Anion Gap 4.5; Aspartate Amino Transferase 24 U/L (15-37); Bilirubin Total 0.1 mg/dL (0.2-1.0); Calcium 8.9 mg/dL (8.5-10.1); Carbon Dioxide 38.3 mmol/L (21.0-32.0); Chloride 97 mmol/L (98-107); Estimated GFR (African America >60 (>=60); Estimated GFR (Non-African Ame >60 (>=60); Globulin 2.3 g/dL; Glucose 110 mg/dL (74-106); Magnesium 1.9 mg/dL (1.8-2.4); Potassium 4.8 mmol/L (3.5-5.1); Sodium 135 mmol/L (136-145); Total Protein 5.3 g/dL (6.4-8.2)
[2022-11-25] MEDS: SPIRONOLACTONE 25 MG TABLET PO (05:34)
[2022-11-25] MEDS: SODIUM CHLORIDE 3% INHALATION 15 ML NEB 3 ML IH ×3 (07:33→19:30)
--- NOTE | 2022-11-25 09:02 | PM.PN ---
Progress Note: Subjective Subjective Interval history: This morning patient is smiling and says he is feeling back to his baseline. Feels the saline is helping with drainage. No longer having chest tightness. Coughing is productive. No fevers or chills. Exam Narrative Exam Narrative: General: Patient is alert, and oriented to person, place and time, cachexia Skin: no visible rashes, or ulcers Head: atraumatic, acephalic Eyes: PERRLA, no nystagmus present, conjunctiva clear, no scleral icterus Ears: normal gross auditory acuity Nose: symmetric, no discharge, no maxillary or frontal sinus tenderness Mouth/Throat: no erythema, exudate, or tonsillar enlargement, normal dentition Neck: no masses palpated, normal thyroid Heart: Normal rate and rhythm, no murmurs/rubs/gallops Lungs: audible wheezes but improved since yesterday, diminished breath sounds all lung vergara, Barrel chest Abdomen: Normal audible bowel sounds, no distension, No palpable masses, no organomegaly, no rebound/guarding/ or rigidity Musculoskeletal: no swelling bilateral lower extremities Neuro: CN II-X grossly intact, normal sensation upper and lower extremities Constitutional Vital Signs, click to edit/add: Last Vital Signs Temp 98.2 F 11/25/22 05:39 Pulse 113 H 11/25/22 08:03 Resp 20 11/25/22 05:39 BP 122/61 11/25/22 05:39 Pulse Ox 96 11/25/22 07:34 O2 Del Method Nasal Cannula 11/25/22 07:34 O2 Flow Rate 3 11/25/22 07:34 FiO2 35 11/23/22 11:14 Progress Note: Objective Labs Labs: Short CBC 11/25/22 Range/Units 03:58 WBC 12.4 H (4.0-11.0) 10^3/uL Hgb 10.7 L (14.0-18.0) g/dL Hct 34.6 L (42.0-54.0) % Plt Count 210 (150-450) 10^3/uL BMP 11/25/22 03:58 Sodium 135 L Potassium 4.8 Chloride 97 L Carbon Dioxide 38.3 H BUN 19.0 H Creatinine 0.76 Glucose 110 H Calcium 8.9 Liver Function 11/25/22 Range/Units 03:58 Total Bilirubin 0.1 L (0.2-1.0) mg/dL AST 24 (15-37) U/L ALT 27 (16-63) U/L Alkaline Phosphatase 60 (46-116) U/L Albumin 3.0 L (3.4-5.0) g/dL Progress Note: A&P Assessment and Plan (1) Community acquired pneumonia: Assessment and Plan: seen on chest Xray in [facility]. patient placed on azithromycin and rocephin, scheduled duonebs, pulmicort, and albuterol as needed. Solumedrol 40mg q6. (2) Acute exacerbation of chronic obstructive pulmonary disease (COPD): Assessment and Plan: treat underlying pneumonia, addition of IV steroids, vapotherm (3) Hypertension: Assessment and Plan: continue spironolactone, metoprolol, amlodipine and aspirin (4) Hyperlipidemia: Assessment and Plan: continue statin Plan patient is a full code, and is ok with intubation if he would require it Lovenox for DVT prophylaxis hopeful discharge home tomorrow
[2022-11-25] MEDS: ENSURE HP 237 ML LIQUID PO ×2 (09:10→21:40)
[2022-11-25] MEDS: AMLODIPINE BESYLATE 5 MG TABLET PO (09:11)
[2022-11-25] MEDS: METOPROLOL SUCCINATE 25 MG TAB.ER.24H PO (09:11)
[2022-11-25] MEDS: ASPIRIN 81 MG TAB.CHEW PO (09:11)
[2022-11-25] MEDS: BUDESONIDE 0.5 MG/2 ML AMPULE NEB IH ×2 (11:59→23:27)
[2022-11-25] MEDS: CEFTRIAXONE 1,000 MG in 0.9 % SODIUM CHLORIDE 50 ML 100 MG IV ×2 (12:12→22:49)
--- NOTE | 2022-11-25 12:42 | CM.NOTE ---
Rounds made with Dr. Gandhi, pt sitting up in chair. Discussed with pt plan of care and possible discharge to home tomorrow. Pt at baseline with oxygen. Talked with Leticia from Pulmonary Rehab, pt is in phase III but has not been going. Discussed this with pt and he plans on restarting outpt Pulmonary Rehab. Leticia in to speak with pt.
--- NOTE | 2022-11-25 14:09 | P.PLPN_ITS ---
Progress Note: A&P Assessment and Plan (1) Acute exacerbation of chronic obstructive pulmonary disease (COPD): Assessment and Plan: 1) AECOPD secondary to pneumonia. Clinically improving. No change to outpatient theophylline dosing. Recommend discharge with prednisone taper and antibiotics. I can F/U with him in 1-2 weeks. 2) Community acquired pneumonia. Clinically improving. Decreased rhonchi in the LLL. Treatment as above. 3) Chronic hypoxic respiratory failure. 4) Panic attacks. 5) Pulmonary cachexia. Forest Fire Management Officer saw patient. Appreciate recommendations. 6) History of tobacco abuse. Plan If patient continues to improve at this pace, anticipate discharge tomorrow. Case discussed with Dr. Disha Gandhi. Subjective Subjective Interval history: Patient states he is beginning to feel better. He is still having some hot flashes, but feels less anxious. Added hypertonic saline yesterday, but it really has not helped to improve his expectoration. He at least does not feel that he is any more congested. Exam Constitutional Vital Signs, click to edit/add: Last Vital Signs Temp 98.2 F 11/25/22 05:39 Pulse 105 H 11/25/22 13:58 Resp 20 11/25/22 05:39 BP 135/69 11/25/22 09:11 Pulse Ox 94 L 11/25/22 12:03 O2 Del Method Room Air 11/25/22 12:03 O2 Flow Rate 3 11/25/22 07:34 FiO2 35 11/23/22 11:14 Documenting provider has reviewed patient's vital signs: yes HENMT Other: Upper dentures. No oral candidiasis. Chest Common normals: inspection of chest normal Respiratory Other: Decreased rhonchi in LLL. Breath sounds remain very distant (baseline). No wheezes. Cardio Rate: regular rate Rhythm: regular rhythm GI Common normals: non-tender Extremity Common normals: normal to inspection Neuro Common normals: no focal motor deficits Psych Common normals: cooperative Attitude: calm and engaged
[2022-11-25] MEDS: ENOXAPARIN SODIUM 40 MG/0.4 ML SYRINGE SUBQ (17:14)
[2022-11-25] MEDS: AZITHROMYCIN 500 MG in 0.9 % SODIUM CHLORIDE 250 ML 250 MG IV (21:39)
[2022-11-25] MEDS: ATORVASTATIN CALCIUM 40 MG TABLET PO (21:40)
[2022-11-25] MEDS: PANTOPRAZOLE SODIUM 40 MG VIAL IV (21:40)
[2022-11-25] MEDS: THEOPHYLLINE 300 MG TAB.ER.12H PO (21:40)
[2022-11-25] MEDS: TAMSULOSIN HCL 0.4 MG CAPSULE PO (21:40)
[2022-11-26] VITALS (11 sets, daily range): BP systolic 126; BP diastolic 62; PULSE 90–108; RESP 18–24; TEMP 36.8; O2SAT 91–97
[2022-11-26] MEDS: METHYLPREDNISOLONE SOD SUCC PF 40 MG/ML VIAL IVP ×2 (02:11→08:32)
[2022-11-26] MEDS: IPRATROPIUM/ALBUTEROL SULFATE 3 ML AMPUL.NEB IH ×3 (03:12→11:34)
[2022-11-26 04:25] LABS: Basophils Percent Auto 0.1 % (0.2-2.0); Hematocrit 37.6 % (42.0-54.0); Hemoglobin 11.8 g/dL (14.0-18.0); Immature Granulocytes Abs Auto 0.05 10^3/uL (0.00-0.03); Immature Granulocytes Pct Auto 0.4 % (0.0-0.5); Lymphocytes Absolute Auto 0.2 10^3/uL (1.2-3.8); Lymphocytes Percent Auto 1.4 % (20.5-60.0); Mean Corpuscular HGB Conc 31.4 g/dL (29.9-35.2); Mean Corpuscular Volume 89.1 fL (80.0-94.0); Mean Platelet Volume 9.5 fL (9.5-13.5); Monocytes Absolute Auto 0.7 10^3/uL (0.3-0.8); Monocytes Percent Auto 6.2 % (1.7-12.0); Neutrophils Absolute Auto 10.9 10^3/uL (1.4-6.5); Neutrophils Percent Auto 91.9 % (43.0-75.0); Platelet Count 205 10^3/uL (150-450); Red Blood Count 4.22 10^6/uL (4.70-6.10); Red Cell Distribution Width 11.9 % (11.0-15.0); White Blood Count 11.9 10^3/uL (4.0-11.0)
[2022-11-26 04:46] LABS: Alanine Aminotransferase 29 U/L (16-63); Albumin Globulin Ratio 1.2; Albumin Level 3.1 g/dL (3.4-5.0); Alkaline Phosphatase 63 U/L (46-116); Anion Gap 2.6; Aspartate Amino Transferase 25 U/L (15-37); BUN Creatinine Ratio 31.1; Bilirubin Total 0.1 mg/dL (0.2-1.0); Calcium 9.1 mg/dL (8.5-10.1); Carbon Dioxide 39.5 mmol/L (21.0-32.0); Chloride 95 mmol/L (98-107); Estimated GFR (African America >60 (>=60); Estimated GFR (Non-African Ame >60 (>=60); Globulin 2.5 g/dL; Glucose 126 mg/dL (74-106); Magnesium 1.9 mg/dL (1.8-2.4); Potassium 5.1 mmol/L (3.5-5.1); Sodium 132 mmol/L (136-145); Total Protein 5.6 g/dL (6.4-8.2)
[2022-11-26] MEDS: SPIRONOLACTONE 25 MG TABLET PO (05:47)
[2022-11-26] MEDS: SODIUM CHLORIDE 3% INHALATION 15 ML NEB 3 ML IH (08:13)
[2022-11-26] MEDS: ENSURE HP 237 ML LIQUID PO (08:32)
[2022-11-26] MEDS: AMLODIPINE BESYLATE 5 MG TABLET PO (08:32)
[2022-11-26] MEDS: METOPROLOL SUCCINATE 25 MG TAB.ER.24H PO (08:32)
[2022-11-26] MEDS: ASPIRIN 81 MG TAB.CHEW PO (08:32)
--- NOTE | 2022-11-26 08:43 | P.DS_ITS ---
DS: Providers Provider Date of admission: 11/22/22 17:19 Primary care physician: MARIE MCCALLUM Admitting clinician: Anna Gandhi Consults: 11/22/22 Consult to Dietitian Routine Reason For Exam: weight loss Reason for consultation: weight loss 11/22/22 16:59 Occupational Therapy Eval and Treat Routine Reason for consultation: weakness Has provider been notified: No Physical Therapy Eval and Treat Routine Reason for consultation: weakness Has provider been notified: No 11/22/22 17:03 Consult to Pulmonology Routine Consulting Provider: Moses Singh Reason for consultation: copd/pna Has provider been notified: Yes 11/23/22 21:55 Consult to Dietitian Routine Reason For Exam: Pulmonary cachexia Reason for consultation: Pulmonary cachexia Has provider been notified: No Attending physician on discharge: Anna Gandhi DS: Diagnosis Discharge Diagnosis (1) Acute exacerbation of chronic obstructive pulmonary disease (COPD): (2) Community acquired pneumonia: (3) Left lower lobe pneumonia: DS: Summary Hospital Course Hospital Course: patient was admitted for community-acquired pneumonia in the left lower lobe, and acute exacerbation of chronic obstructive pulmonary disease. Patient placed on azithromycin and rocephin, scheduled duonebs, pulmicort, and albuterol as needed. Solumedrol 40mg q6. patient initially required some Vapotherm and then was transitioned to home 3 L continuous nasal cannula of which she desired he been taking. Additional medications will be a steroid taper for approximately thirteen days, four more days of azithromycin, four days of Augmentin and he will have close follow-up with pulmonary. Medications were sent to the pharmacy, only medication change was to hold the prednisone 5 mg until completed prednisone taper. Also I wrote for an additional Vistaril to be used as needed for anxiety. Labs stable at the time of discharge. Patient is return to the Emergency Room with any worsening symptoms. Status at Discharge Functional status at discharge: independent ambulation Overall status at discharge: patient is back to baseline Time Spent with Patient Time attestation: Total time spent providing and/or coordinating discharge services: Time spent: greater than 30 minutes Exam Narrative Exam Narrative: General: Patient is alert, and oriented to person, place and time, cachexia Skin: no visible rashes, or ulcers Head: atraumatic, acephalic Eyes: PERRLA, no nystagmus present, conjunctiva clear, no scleral icterus Ears: normal gross auditory acuity Nose: symmetric, no discharge, no maxillary or frontal sinus tenderness Mouth/Throat: no erythema, exudate, or tonsillar enlargement, normal dentition Neck: no masses palpated, normal thyroid Heart: Normal rate and rhythm, no murmurs/rubs/gallops Lungs: audible wheezes but improved , diminished breath sounds all lung vergara, Barrel chest Abdomen: Normal audible bowel sounds, no distension, No palpable masses, no organomegaly, no rebound/guarding/ or rigidity Musculoskeletal: no swelling bilateral lower extremities Neuro: CN II-X grossly intact, normal sensation upper and lower extremities Constitutional Vital Signs, click to edit/add: Last Vital Signs Temp 98.2 F 11/26/22 04:08 Pulse 96 H 11/26/22 08:00 Resp 18 11/26/22 04:08 BP 126/62 11/26/22 04:08 Pulse Ox 95 11/26/22 08:16 O2 Del Method Nasal Cannula 11/26/22 08:16 O2 Flow Rate 3 11/26/22 08:16 FiO2 35 11/23/22 11:14 DS: Data Data Completed and Pending Labs on day of discharge: Labs from last 24 hours 11/26/22 04:07 WBC 11.9 H RBC 4.22 L Hgb 11.8 L Hct 37.6 L MCV 89.1 MCH 28.0 MCHC 31.4 RDW 11.9 Plt Count 205 MPV 9.5 Neut % (Auto) 91.9 H Lymph % (Auto) 1.4 L [place] % (Auto) 6.2 Eos % (Auto) 0.0 L Baso % (Auto) 0.1 L Neut # (Auto) 10.9 H Lymph # (Auto) 0.2 L [place] # (Auto) 0.7 Eos # (Auto) 0.0 Baso # (Auto) 0.0 Abs Immat Gran (auto) 0.05 H Imm/Tot Granulo (auto) 0.4 Sodium 132 L Potassium 5.1 Chloride 95 L Carbon Dioxide 39.5 H Anion Gap 2.6 BUN 23.0 H Creatinine 0.74 Est GFR ( Amer) >60 Est GFR (Non-Af Amer) >60 BUN/Creatinine Ratio 31.1 Glucose 126 H Calcium 9.1 Magnesium 1.9 Total Bilirubin 0.1 L AST 25 ALT 29 Alkaline Phosphatase 63 Total Protein 5.6 L Albumin 3.1 L Globulin 2.5 Albumin/Globulin Ratio 1.2 Preliminary micro results at discharge 11/22/22 16:40 - Preliminary Blood NO GROWTH AT 36-48 HOURS. FINAL TO FOLLOW. 11/22/22 14:29 Blood Culture Result 1 - Preliminary Blood NO GROWTH AT 36-48 HOURS. FINAL TO FOLLOW. Discharge Plan Discharge Disposition: Home, Self-Care Condition: Good Discharge Medications: New hydroxyzine pamoate 25 mg Capsule 25 mg PO Q6H PRN (Reason: Anxiety) 30 Days Qty: 30 0RF azithromycin 250 mg tablet 250 mg PO DAILY 4 Days Qty: 4 0RF prednisone 20 mg tablet 20 mg PO USEASDIRECTD 13 Days Qty: 20 0RF Rx Instructions: 20mg PO TID x 3 days, then 20mg PO BID x 3 days, then 20mg PO daily x 3 days, then 20mg every other day for 4 days amoxicillin-pot clavulanate [Augmentin] 500-125 mg tablet 1 tab PO Q12H 7 Days Qty: 14 0RF Continued amlodipine 5 mg tablet 5 mg PO QDAY Trelegy Ellipta 100-62.5-25 mcg blister with device 1 inh inhalation Q24H spironolactone 25 mg tablet 25 mg PO DAILY theophylline 300 mg tablet extended release 12 hr 300 mg PO Q24H tamsulosin 0.4 mg capsule 0.4 mg PO Q24H pantoprazole 40 mg tablet,delayed release (DR/EC) 40 mg PO DAILY metoprolol succinate 25 mg tablet extended release 24 hr 25 mg PO DAILY rosuvastatin 10 mg tablet 10 mg PO DAILY aspirin 81 mg tablet,chewable 81 mg PO QDAY Held prednisone 5 mg tablet 5 mg PO DAILY Hold Instructions: Resume on 12/09/22. Activity: increase activity as tolerated Diet: advance to your usual diet Forms: Portal Instructions Follow Up Appointments: Patient states he has a follow up with Dr. Mccallum on . Office is closed on Fridays so unable to verify day and time. Follow up appt. with Dr. Singh on @ 2:30pm Office #: [phone]
[2022-11-26] MEDS: CEFTRIAXONE 1,000 MG in 0.9 % SODIUM CHLORIDE 50 ML 100 MG IV (10:37)
[2022-11-26] MEDS: BUDESONIDE 0.5 MG/2 ML AMPULE NEB IH (11:34)
--- NOTE | 2022-11-26 11:58 | CM.NOTE ---
Rounds made with eliza Swift to discharge to home. No discharge needs identified, pt will contact pulmonary rehab to continue outpt therapy.
--- NOTE | 2022-11-29 12:15 | CM.DCFOLLOWU ---
11/29- 1st attempt no answer
--- NOTE | 2022-11-29 14:01 | CM.DCFOLLOWU ---
Person spoke with: Daniel How are you feeling? Much better How is your pain? No pain Did you understand your discharge instructions? Yes Do you have any questions about your discharge instructions? No Were you given any prescriptions at discharge? Yes Were you able to get your prescriptions filled? Yes Do you understand how to take your medications as ordered? Yes Do you have any questions about your follow up appointment and do you plan to keep your follow up appointment? I'm calling Dr. Mcdonald's office now Is there anything else that you would like to discuss? Just wanted to let everyone know, I received exceptional care and [facility] is the best in the [facility]. Questions/Comments/Concerns/Other:
== END 2022-11-26 14:25 | disposition home or self-care (01) | DRG 193 ==
LOC: ER 16:23 → MS 17:43
PROVIDERS: Internal Medicine; Physician Assistant; Admitting Provider Family Medicine; Emergency Provider Emergency Medicine Emergency Medical Services; PCP Family Medicine; Visit Provider Family Medicine
DX: J18.9 Pneumonia, unspecified organism (principal); J96.21 Acute and chronic respiratory failure with hypoxia; J44.0 Chronic obstructive pulmonary disease with (acute) lower respiratory infection; Z68.1 Body mass index [BMI] 19.9 or less, adult; E78.00 Pure hypercholesterolemia, unspecified; J43.9 Emphysema, unspecified; Z99.81 Dependence on supplemental oxygen; I10 Essential (primary) hypertension; E88.A Wasting disease (syndrome) due to underlying condition; N40.0 Benign prostatic hyperplasia without lower urinary tract symptoms; F41.0 Panic disorder [episodic paroxysmal anxiety]; Z87.891 Personal history of nicotine dependence; Z79.899 Other long term (current) drug therapy; Z79.82 Long term (current) use of aspirin; Z95.5 Presence of coronary angioplasty implant and graft; Z82.49 Family history of ischemic heart disease and other diseases of the circulatory system; Z88.6 Allergy status to analgesic agent; Z88.5 Allergy status to narcotic agent; Z88.8 Allergy status to other drugs, medicaments and biological substances; Z79.52 Long term (current) use of systemic steroids
CPT/HCPCS: 0202U; 36415; 71045; 80053; 80198; 82800; 83605; 83735; 83880; 84484; 85025; 85378; 85610; 85730; 87040; 87635; 87811; 93005; 94640; 94667; 94668; 94761; 94799; 96365; 96366; 96367; 96368; 96372; 96375; 96376; 97163; 97165; 97535; 99285; J0456; J2920

== ENCOUNTER 2023-01-03 16:18 | Inpatient (IN) | payer MEDICARE, SELFPAY ==
[2023-01-03] VITALS (58 sets, daily range): BP systolic 121–142; BP diastolic 63–94; PULSE 82–98; RESP 14–33; TEMP 36.4–36.6; O2SAT 79–99; BMI 26.9; BMI 19.9
--- NOTE | 2023-01-03 16:45 | XR_ITS ---
The [address] [address] Patient Name: SOFYA ORTA MRN: [id number] date: 1950 Sex: M Assigned Patient Location: ER Current Patient Location: ER Accession/Order Number: [id number] Exam Date: 01/03/2023 17:08 Report Date: 01/03/2023 17:29 At the request of: MARIA ELENA KHALIL Procedure: XR chest 1V EXAM: XR chest 1V HISTORY: Dyspnea COMPARISON: Chest x-ray 11/24/2022 TECHNIQUE: Portable chest FINDINGS: IMPRESSION: Hyperinflation lung parenchyma. Scarring that is better visualized on this study versus a new consolidation within the made to upper lateral aspect of the left lung parenchyma. The remainder of the lung parenchyma exhibits no gross acute abnormality. Diffuse parenchymal bulla the heart is not enlarged. No visualized pneumothorax or pleural effusion Electronically authenticated by: TRISTAN HERNANDEZ Date: 01/03/2023 17:29
--- NOTE | 2023-01-03 16:45 | ECG_ITS ---
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
--- NOTE | 2023-01-03 16:52 | ED_ITS ---
HPI - SOB/Dyspnea General Chief Complaint: Shortness of Breath/Dyspnea Stated Complaint: DIFF BREATHING Time Seen by Provider: 01/03/23 16:43 Source: patient Mode of arrival: Wheelchair History of Present Illness HPI Narrative: Patient is a 72-year-old male with an extensive history of COPD/emphysema who wears oxygen by nasal cannula at 3 L chronically at home, presents to the ER with his son for a 1 month history of worsening dyspnea. Patient has recently had issues with weight loss, he is followed by a local fruit or nut farmer, Dr. Singh, whose office referred the patient to the ER. He does take chronic low-dose steroids. He denies chest pain. He has had no objective fevers, vomiting. He has occasional sputum production with coughing, no hemoptysis. He states he has had some swelling of the ankles. At time of initial interview and exam, patient is notably short of breath, hypoxic on oxygen by nasal cannula at 3 L. Related Data Home Medications Medication Instructions Recorded Confirmed amlodipine 5 mg tablet 5 mg PO QDAY 07/08/22 11/23/22 aspirin 81 mg chewable tablet 81 mg PO QDAY 07/08/22 11/22/22 fluticasone fur. 100 mcg-umeclid 1 inh inhalation Q24H 07/08/22 11/22/22 62.5 mcg-vilant 25 mcg inhalat.powder (Trelegy Ellipta) metoprolol succinate 25 mg 25 mg PO DAILY 07/08/22 11/23/22 tablet,extended release 24 hr pantoprazole 40 mg tablet,delayed 40 mg PO DAILY 07/08/22 11/23/22 release rosuvastatin 10 mg tablet 10 mg PO DAILY 07/08/22 11/23/22 spironolactone 25 mg tablet 25 mg PO DAILY 07/08/22 11/23/22 tamsulosin 0.4 mg capsule 0.4 mg PO Q24H 07/08/22 11/22/22 theophylline 300 mg 300 mg PO Q24H 07/08/22 11/22/22 tablet,extended release,12 hr prednisone 5 mg tablet 5 mg PO DAILY 11/22/22 11/22/22 Previous Rx's Medication Instructions Recorded amoxicillin 500 mg-potassium 1 tab PO Q12H 7 days #14 tabs 11/26/22 clavulanate 125 mg tablet (Augmentin) azithromycin 250 mg tablet 250 mg PO DAILY 4 days #4 tabs 11/26/22 hydroxyzine pamoate 25 mg capsule 25 mg PO Q6H PRN Anxiety 30 days 11/26/22 #30 caps prednisone 20 mg tablet 20 mg PO USEASDIRECTD 13 days #20 11/26/22 tabs Allergies Allergy/AdvReac Type Severity Reaction Status Date / Time meperidine [From Demerol] Allergy Severe Anaphylaxis Verified 07/08/22 00:40 morphine Allergy Anaphylaxis Verified 07/08/22 00:40 acetaminophen AdvReac Anaphylaxis Verified 07/08/22 00:40 [From Theraflu Daytime Severe Cold] dextromethorphan AdvReac Anaphylaxis Verified 07/08/22 00:40 [From Theraflu Daytime Severe Cold] pseudoephedrine AdvReac Anaphylaxis Verified 07/08/22 00:40 [From Theraflu Daytime Severe Cold] Review of Systems ROS Constitutional Denies: fever or chills Ears, nose, mouth, and throat Denies: throat pain Cardiovascular Denies: chest pain Respiratory Reports: shortness of breath and cough Gastrointestinal Denies: nausea or vomiting Musculoskeletal Denies: back pain Integumentary/Breast Denies: rash Neurological Denies: headache Endocrine Denies: excessive urination [facility] Medical History (Updated 01/03/23 @ 18:16 by JOHANNA Monreal) Acute exacerbation of chronic obstructive pulmonary disease (COPD) ?J44.1 - Chronic obstructive pulmonary disease with (acute) exacerbation (ICD-10) Acute on chronic respiratory failure with hypoxia ?J96.21 - Acute and chronic respiratory failure with hypoxia (ICD-10) High blood cholesterol ?E78.00 - Pure hypercholesterolemia, unspecified (ICD-10) History of tobacco abuse ?Z87.891 - Personal history of nicotine dependence (ICD-10) Hyperlipidemia ?E78.5 - Hyperlipidemia, unspecified (ICD-10) Hypertension ?I10 - Essential (primary) hypertension (ICD-10) Surgical History H/O heart artery stent ?Z95.5 - Presence of coronary angioplasty implant and graft (ICD-10) H/O shoulder surgery ?Z98.890 - Other specified postprocedural states (ICD-10) Hx of inguinal hernia surgery ?Z98.890 - Other specified postprocedural states (ICD-10) ?Z87.19 - Personal history of other diseases of the digestive system (ICD-10) Family History Father Family history of hypertension Social History Within the past year, how often did you have a drink containing alcohol: never Score interpretation: A score less than 4 is consistent with normal alcohol consumption. Smoking status: Current every day smoker Non-prescribed substance use: denies use Previous occupational history: retired Highest level of school completed/degree received: high school graduate Are you now , , , , never or living with a partner: Little interest or pleasure in doing things: not at all Feeling down, depressed, or hopeless: not at all Feel stressed/tense/nervous/anxious/difficulty sleeping: not at all Gender Identity: male Exam Narrative Exam Narrative: Gen.: Awake, alert, in no distress Head: Normocephalic, atraumatic ENT: Moist mucous membranes Respiratory: Mild respiratory distress, decreased lung sounds globally, tachypnea. Oxygen by nasal cannula Cardio: Regular rate and rhythm Gastrointestinal: Abdomen is soft, nondistended and nontender to palpation Extremities: Moves extremities equally, 1+ nonpitting edema to the bilateral ankles Psych: Normal mood and affect Neuro: No focal neuro deficit Skin: Warm, dry, intact Constitutional Vital Signs, click to edit/add: Last Vital Signs Temp 97.9 F 01/03/23 16:28 Pulse 87 01/03/23 17:40 Resp 26 H 01/03/23 17:40 BP 137/67 01/03/23 16:28 Pulse Ox 94 L 01/03/23 17:40 O2 Del Method Vapotherm 01/03/23 17:34 O2 Flow Rate 40 01/03/23 17:34 FiO2 35 01/03/23 17:34 Course Vital Signs Vital signs: Vital Signs Temperature 97.9 F 01/03/23 16:28 Pulse Rate 97 H 01/03/23 16:28 Respiratory Rate 22 01/03/23 16:28 Blood Pressure 137/67 01/03/23 16:28 Pulse Oximetry 92 L 01/03/23 16:28 Oxygen Delivery Method Nasal Cannula 01/03/23 16:28 Temperature 97.9 F 01/03/23 16:28 Pulse Rate 87 01/03/23 17:40 Respiratory Rate 26 H 01/03/23 17:40 Blood Pressure 137/67 01/03/23 16:28 Pulse Oximetry 94 L 01/03/23 17:40 Oxygen Delivery Method Vapotherm 01/03/23 17:34 Oxygen Delivery Flow Rate 40 01/03/23 17:34 Fraction of Inspired Oxygen 35 01/03/23 17:34 MDM - SOB/Dyspnea MDM Narrative Medical decision making narrative: On arrival to the emergency department, patient was noted to be hypoxic on oxygen by nasal cannula. Respiratory therapy immediately presented to the bedside, breathing treatments were given and the patient was placed on Vapotherm with significant improvement at 40% and 40L. Oxygen saturation has improved. Patient was noted to have a venous pCO2 of 95, Vapotherm expected to help his CO2 retention. Lab studies including troponin, BNP and D-dimer are within normal limits. Chest x-ray shows left upper lobe atelectasis versus consolidation, patient will be treated with IV Levaquin. Blood cultures are pending. Lactic acid is within normal limits. We did attempt to wean the patient's Vapotherm to 35%, he had a desaturation of his pulse ox to the low 90s/high 80s so he was placed back on 40 L and 40%. I discussed the case with the hospitalist, Dr. Browne, she is in agreement with treatment plan and patient will be admitted to ICU for further evaluation and treatment. He is stable, improved and resting more comfortably at time of evaluation Medical Records Attestation: I reviewed the patient's medical records. Lab Data Attestation: I reviewed the patient's lab results. Labs: Lab Results 01/03/23 Range/Units 16:47 WBC 12.5 H (4.0-11.0) 10^3/uL RBC 4.18 L (4.70-6.10) 10^6/uL Hgb 11.7 L (14.0-18.0) g/dL Hct 38.1 L (42.0-54.0) % MCV 91.1 (80.0-94.0) fL MCH 28.0 (25.9-34.0) pg MCHC 30.7 (29.9-35.2) g/dL RDW 11.8 (11.0-15.0) % Plt Count 285 (150-450) 10^3/uL MPV 9.2 L (9.5-13.5) fL Neut % (Auto) 90.1 H (43.0-75.0) % Lymph % (Auto) 2.0 L (20.5-60.0) % [place] % (Auto) 7.1 (1.7-12.0) % Eos % (Auto) 0.2 L (0.9-7.0) % Baso % (Auto) 0.2 (0.2-2.0) % Neut # (Auto) 11.3 H (1.4-6.5) 10^3/uL Lymph # (Auto) 0.3 L (1.2-3.8) 10^3/uL [place] # (Auto) 0.9 H (0.3-0.8) 10^3/uL Eos # (Auto) 0.0 (0.0-0.7) 10^3/uL Baso # (Auto) 0.0 (0.0-0.1) 10^3/uL Abs Immat Gran (auto) 0.05 H (0.00-0.03) 10^3/uL Imm/Tot Granulo (auto) 0.4 (0.0-0.5) % PT 9.9 (9.0-11.6) sec INR 0.93 APTT 29.6 (22.3-36.2) sec D-Dimer 0.35 (<=0.59) mg/L FEU VBG pH 7.298 L (7.330-7.430) VBG pCO2 95.5 H* (40.0-52.0) mmHg Sodium 131 L (136-145) mmol/L Potassium 4.7 (3.5-5.1) mmol/L Chloride 88 L (98-107) mmol/L Carbon Dioxide 44.9 H (21.0-32.0) mmol/L Anion Gap 2.8 BUN 16.0 (7.0-18.0) mg/dL Creatinine 0.62 L (0.70-1.30) mg/dL Est GFR ( Amer) >60 (>=60) Est GFR (Non-Af Amer) >60 (>=60) BUN/Creatinine Ratio 25.8 Glucose 123 H (74-106) mg/dL Calcium 9.1 (8.5-10.1) mg/dL Total Bilirubin 0.3 (0.2-1.0) mg/dL AST 36 (15-37) U/L ALT 34 (16-63) U/L Alkaline Phosphatase 88 (46-116) U/L Troponin I High Sens 18.8 (4.0-76.1) pg/mL NT-Pro-B Natriuret Pep 180.0 (<=900.0) pg/mL Total Protein 6.4 (6.4-8.2) g/dL Albumin 3.2 L (3.4-5.0) g/dL Globulin 3.2 g/dL Albumin/Globulin Ratio 1.0 Imaging Data Chest x-ray: Attestation: I have reviewed the pertinent imaging results. Radiologist's impression: Procedure: XR chest 1V EXAM: XR chest 1V HISTORY: Dyspnea COMPARISON: Chest x-ray 11/24/2022 TECHNIQUE: Portable chest FINDINGS: IMPRESSION: Hyperinflation lung parenchyma. Scarring that is better visualized on this study versus a new consolidation within the made to upper lateral aspect of the left lung parenchyma. The remainder of the lung parenchyma exhibits no gross acute abnormality. Diffuse parenchymal bulla the heart is not enlarged. No visualized pneumothorax or pleural effusion Electronically authenticated by: TRISTAN HERNANDEZ Date: 01/03/2023 17:29 ECG Data Attestation: I personally reviewed and interpreted this ECG as follows: (Normal sinus rhythm at a rate of 88, sinus arrhythmia noted with right bundle branch block, no acute ST elevation or ectopy. EKG reviewed by attending physician) ECG interpretation date: 01/03/23 ECG interpretation time: 17:10 Discharge Plan Discharge Chief Complaint: Shortness of Breath/Dyspnea Patient Disposition: Admitted As Inpatient Time of Disposition Decision: 18:15 Prescriptions / Home Meds: No Action amlodipine 5 mg tablet 5 mg PO QDAY Trelegy Ellipta 100-62.5-25 mcg blister with device 1 inh inhalation Q24H spironolactone 25 mg tablet 25 mg PO DAILY theophylline 300 mg tablet extended release 12 hr 300 mg PO Q24H tamsulosin 0.4 mg capsule 0.4 mg PO Q24H pantoprazole 40 mg tablet,delayed release (DR/EC) 40 mg PO DAILY metoprolol succinate 25 mg tablet extended release 24 hr 25 mg PO DAILY rosuvastatin 10 mg tablet 10 mg PO DAILY aspirin 81 mg tablet,chewable 81 mg PO QDAY prednisone 5 mg tablet 5 mg PO DAILY Hold Instructions: Resume on 12/09/22. hydroxyzine pamoate 25 mg Capsule 25 mg PO Q6H PRN (Reason: Anxiety) 30 Days Qty: 30 0RF azithromycin 250 mg tablet 250 mg PO DAILY 4 Days Qty: 4 0RF prednisone 20 mg tablet 20 mg PO USEASDIRECTD 13 Days Qty: 20 0RF Rx Instructions: 20mg PO TID x 3 days, then 20mg PO BID x 3 days, then 20mg PO daily x 3 days, then 20mg every other day for 4 days amoxicillin-pot clavulanate [Augmentin] 500-125 mg tablet 1 tab PO Q12H 7 Days Qty: 14 0RF Referrals: MARIE MCCALLUM [Primary Care Provider] - 1 week
[2023-01-03 16:58] LABS: Basophils Percent Auto 0.2 % (0.2-2.0); Eosinophils Percent Auto 0.2 % (0.9-7.0); Hematocrit 38.1 % (42.0-54.0); Hemoglobin 11.7 g/dL (14.0-18.0); Immature Granulocytes Abs Auto 0.05 10^3/uL (0.00-0.03); Immature Granulocytes Pct Auto 0.4 % (0.0-0.5); Lymphocytes Absolute Auto 0.3 10^3/uL (1.2-3.8); Mean Corpuscular HGB Conc 30.7 g/dL (29.9-35.2); Mean Corpuscular Volume 91.1 fL (80.0-94.0); Mean Platelet Volume 9.2 fL (9.5-13.5); Monocytes Absolute Auto 0.9 10^3/uL (0.3-0.8); Monocytes Percent Auto 7.1 % (1.7-12.0); Neutrophils Absolute Auto 11.3 10^3/uL (1.4-6.5); Neutrophils Percent Auto 90.1 % (43.0-75.0); Platelet Count 285 10^3/uL (150-450); Red Blood Count 4.18 10^6/uL (4.70-6.10); Red Cell Distribution Width 11.8 % (11.0-15.0); White Blood Count 12.5 10^3/uL (4.0-11.0); pH VBG 7.298 (7.330-7.430)
[2023-01-03 16:59] LABS: PCO2 VBG 95.5 mmHg (40.0-52.0)
[2023-01-03] MEDS: IPRATROPIUM/ALBUTEROL SULFATE 3 ML AMPUL.NEB IH ×2 (17:12→22:10)
[2023-01-03] MEDS: ALBUTEROL SULFATE 2.5 MG/3 ML VIAL NEB IH (17:12)
--- NOTE | 2023-01-03 17:16 | RESP.RT ---
Pt placed on vapotherm 50% SpO2 increased to 99% so titrated FiO2 down to 40%
[2023-01-03] MEDS: METHYLPREDNISOLONE SOD SUCC PF 125 MG/2 ML VIAL IVP (17:27)
[2023-01-03] MEDS: MAGNESIUM SULFATE IN WATER 2 GM/50 ML PREMIX IV (17:27)
[2023-01-03 17:41] LABS: D Dimer 0.35 mg/L FEU (<=0.59); INR 0.93; Partial Thromboplastin Time 29.6 sec (22.3-36.2); Prothrombin Time 9.9 sec (9.0-11.6)
[2023-01-03 17:43] LABS: Alanine Aminotransferase 34 U/L (16-63); Albumin Level 3.2 g/dL (3.4-5.0); Alkaline Phosphatase 88 U/L (46-116); Anion Gap 2.8; Aspartate Amino Transferase 36 U/L (15-37); BUN Creatinine Ratio 25.8; Bilirubin Total 0.3 mg/dL (0.2-1.0); Calcium 9.1 mg/dL (8.5-10.1); Carbon Dioxide 44.9 mmol/L (21.0-32.0); Chloride 88 mmol/L (98-107); Estimated GFR (African America >60 (>=60); Estimated GFR (Non-African Ame >60 (>=60); Globulin 3.2 g/dL; Glucose 123 mg/dL (74-106); Potassium 4.7 mmol/L (3.5-5.1); Sodium 131 mmol/L (136-145); Total Protein 6.4 g/dL (6.4-8.2)
[2023-01-03 17:52] LABS: Troponin I High Sensitivity 18.8 pg/mL (4.0-76.1)
[2023-01-03] MEDS: LEVOFLOXACIN IN DEXTROSE 5 % 750 MG/150 ML IV.SOLN 100 MG IV (18:41)
--- NOTE | 2023-01-03 19:34 | RESP.RT ---
increased Fi02 to 40%
--- NOTE | 2023-01-03 20:43 | W.PM.TELEPN ---
Progress Note: Subjective Subjective Interval history: The patient is a 72-year-old male with a history of chronic respiratory failure, 3 L oxygen dependent COPD who is also on chronic steroids, prednisone 5 mg daily, who has been having increasing shortness of breath over the past 2 weeks associated with a nonproductive cough. He had worsening shortness of breath today and called his primary county sheriff to referred him to the emergency room. On arrival to the ED, he was saturating 78 to 80% on 3 L oxygen. ABG was done and showed pCO2 of 90. He was placed on 40%, 40 L of Vapotherm and had a saturation of 94 to 97%. He was given a dose of Levaquin and steroids. He is being admitted for further evaluation. The patient has not received his flu and COVID vaccines this year. Exam Narrative Exam Narrative: General : Alert and oriented x3 HEENT : Extraocular movements intact, pupils equal round and reactive to light and accommodation Neck: Supple, no JVD Chest: Diminished breath sounds. Heart: Regular rate and rhythm, S1 and S2 heard Abdomen: Soft nontender nondistended. Extremities: No clubbing cyanosis or edema Neurologically: Moving all 4 extremities Skin: No rashes Constitutional Vital Signs, click to edit/add: Last Vital Signs Temp 97.5 F L 01/03/23 19:40 Pulse 94 H 01/03/23 19:40 Resp 27 H 01/03/23 19:40 BP 139/94 H 01/03/23 19:40 Pulse Ox 94 L 01/03/23 19:58 O2 Del Method Vapotherm 01/03/23 19:58 O2 Flow Rate 40 01/03/23 19:58 FiO2 40 01/03/23 19:58 Progress Note: Objective Labs Labs: Short CBC 01/03/23 Range/Units 16:47 WBC 12.5 H (4.0-11.0) 10^3/uL Hgb 11.7 L (14.0-18.0) g/dL Hct 38.1 L (42.0-54.0) % Plt Count 285 (150-450) 10^3/uL BMP 01/03/23 16:47 Sodium 131 L Potassium 4.7 Chloride 88 L Carbon Dioxide 44.9 H BUN 16.0 Creatinine 0.62 L Glucose 123 H Calcium 9.1 Liver Function 11/27/23 Range/Units 16:47 Total Bilirubin 0.3 (0.2-1.0) mg/dL AST 36 (15-37) U/L ALT 34 (16-63) U/L Alkaline Phosphatase 88 (46-116) U/L Albumin 3.2 L (3.4-5.0) g/dL Progress Note: A&P Assessment and Plan (1) Hypoxia: (2) Community acquired pneumonia: (3) Shortness of breath: Plan The patient is a 72-year-old male with above medical problems, presenting with acute hypoxic, hypercarbic respiratory failure. Acute hypoxic and hypercarbic respiratory failure -Patient is requiring Vapotherm -Repeat ABG -Titrate oxygen accordingly -Start IV steroids, Mucinex, nebulizers, broad-spectrum antibiotics Hyponatremia -Could be from mild volume depletion -Add gentle IV fluids Dyslipidemia -Continue statin Hypertension -Continue amlodipine and metoprolol Chronic respiratory failure secondary to COPD -Continue theophylline, nebulizers -Hold prednisone while on IV steroids DVT Prophylaxis -Lovenox, SCDs Medication review -Medication reconciliation form completed Goals of care -DNR [employer] -Discussed with the emergency room physician -Discussed with the bedside nurse -Patient updated of plan of care, all questions answered to their satisfaction Disposition -PT evaluation when respiratory status improves - Home when medically stable Telemedicine clause -As the provider of this telehealth evaluation, requested by the patient's evaluating physician, I attest that I introduced myself to the patient, provided my credentials and determined that telemedicine via a real-time, two-way interactive audio and video platform is an appropriate and effective means of providing this service. -I reviewed the patient's chart and had a discussion with the member of the patient's treatment team. -The patient and I mutually agreed with continuation of this evaluation via telemedicine. The patient consented for the telemedicine evaluation. -This virtual encounter was taken place from [place], [place]. The encounter was approximately 35 minutes. The nurse was present during the entire time of the encounter and was able to remove the stethoscope and appropriate directions. The patient was evaluated at [facility] Telemedicine Attestation Telemedicine Attestation I conducted this encounter from [] via secure live, [id number] video conference with the patient, located at [facility] with []. Prior to the interview, the risks and benefits of telemedicine were discussed with the patient and verbal consent was obtained.
[2023-01-03] MEDS: 0.9 % SODIUM CHLORIDE 1,000 ML 75 ML IV (21:44)
[2023-01-03] MEDS: CEFTRIAXONE 1,000 MG in 0.9 % SODIUM CHLORIDE 50 ML 100 MG IV (21:44)
[2023-01-03] MEDS: METHYLPREDNISOLONE SOD SUCC PF 40 MG/ML VIAL IVP (21:46)
[2023-01-03] MEDS: THEOPHYLLINE 300 MG TAB.ER.12H PO (21:47)
[2023-01-03] MEDS: ENOXAPARIN SODIUM 40 MG/0.4 ML SYRINGE SUBQ (21:47)
[2023-01-03] MEDS: AMLODIPINE BESYLATE 5 MG TABLET PO (21:48)
[2023-01-03] MEDS: MIRTAZAPINE 15 MG TABLET PO (21:49)
[2023-01-03] MEDS: GUAIFENESIN 600 MG TAB.ER.12H PO (21:49)
[2023-01-03] MEDS: TAMSULOSIN HCL 0.4 MG CAPSULE PO (21:49)
[2023-01-03 22:24] LABS: PO2 ABG 75.9 mmHg (80.0-100.0)
[2023-01-03] MEDS: AZITHROMYCIN 500 MG in 0.9 % SODIUM CHLORIDE 250 ML 250 MG IV (22:24)
[2023-01-03 22:25] LABS: Allen Test POSITIVE (POSITIVE); Base Excess ABG 16.2 mmol/L (-2.0-2.0); Fractionated Inspired Oxygen 40 %; HCO3 ABG 43.2 mmol/L (22.0-26.0); Liters per Minute 40; O2 Mode VAPOTHERM; Oxygen Saturation ABG 94.5 %; Puncture Site L RADIAL
[2023-01-03 22:26] LABS: ABG PCO2 95.4 mmHg (35.0-45.0); pH ABG 7.264 (7.350-7.450)
[2023-01-04] VITALS (128 sets, daily range): BP systolic 119–147; BP diastolic 51–74; PULSE 79–109; RESP 8–42; TEMP 36.5–36.7; O2SAT 67–100; BMI 19.9
[2023-01-04] MEDS: METHYLPREDNISOLONE SOD SUCC PF 40 MG/ML VIAL IVP ×4 (02:10→22:08)
[2023-01-04 05:21] LABS: Hematocrit 35.8 % (42.0-54.0); Immature Granulocytes Abs Auto 0.04 10^3/uL (0.00-0.03); Immature Granulocytes Pct Auto 0.7 % (0.0-0.5); Lymphocytes Absolute Auto 0.1 10^3/uL (1.2-3.8); Lymphocytes Percent Auto 2.3 % (20.5-60.0); Mean Corpuscular HGB Conc 30.7 g/dL (29.9-35.2); Mean Corpuscular Hemoglobin 27.8 pg (25.9-34.0); Mean Corpuscular Volume 90.6 fL (80.0-94.0); Mean Platelet Volume 9.3 fL (9.5-13.5); Monocytes Absolute Auto 0.1 10^3/uL (0.3-0.8); Monocytes Percent Auto 2.1 % (1.7-12.0); Neutrophils Absolute Auto 5.4 10^3/uL (1.4-6.5); Neutrophils Percent Auto 94.9 % (43.0-75.0); Platelet Count 262 10^3/uL (150-450); Red Blood Count 3.95 10^6/uL (4.70-6.10); Red Cell Distribution Width 11.5 % (11.0-15.0); White Blood Count 5.7 10^3/uL (4.0-11.0)
[2023-01-04] MEDS: IPRATROPIUM/ALBUTEROL SULFATE 3 ML AMPUL.NEB IH ×4 (05:21→20:20)
[2023-01-04 05:35] LABS: BUN Creatinine Ratio 25.4; Calcium 9.2 mg/dL (8.5-10.1); Carbon Dioxide 42.1 mmol/L (21.0-32.0); Chloride 91 mmol/L (98-107); Estimated GFR (African America >60 (>=60); Estimated GFR (Non-African Ame >60 (>=60); Glucose 100 mg/dL (74-106); Potassium 5.1 mmol/L (3.5-5.1); Sodium 131 mmol/L (136-145)
[2023-01-04 05:54] LABS: Adenovirus NOT DETECTED (NOT DETECTE); Bordetella parapertussis NOT DETECTED (NOT DETECTE); Coronavirus 229E NOT DETECTED (NOT DETECTE); Coronavirus HKU1 NOT DETECTED (NOT DETECTE); Coronavirus NL63 NOT DETECTED (NOT DETECTE); Coronavirus OC43 NOT DETECTED (NOT DETECTE); Human Metapneumovirus NOT DETECTED (NOT DETECTE); Human Rhinovirus/Enterovirus NOT DETECTED (NOT DETECTE); Influenza A NOT DETECTED (NOT DETECTE); Influenza B NOT DETECTED (NOT DETECTE); Mycoplasma pneumoniae NOT DETECTED (NOT DETECTE); Parainfluenza Virus 1 NOT DETECTED (NOT DETECTE); Parainfluenza Virus 2 NOT DETECTED (NOT DETECTE); Parainfluenza Virus 3 NOT DETECTED (NOT DETECTE); Parainfluenza Virus 4 NOT DETECTED (NOT DETECTE); Respiratory Syncytial Virus NOT DETECTED (NOT DETECTE); SARS-CoV-2 NOT DETECTED (NOT DETECTE)
--- NOTE | 2023-01-04 07:27 | RESP.RT ---
increased to 50% SpO2 up; to 88%
[2023-01-04] MEDS: THEOPHYLLINE 300 MG TAB.ER.12H PO ×2 (08:45→22:07)
[2023-01-04] MEDS: SPIRONOLACTONE 25 MG TABLET PO (08:45)
[2023-01-04] MEDS: GUAIFENESIN 600 MG TAB.ER.12H PO ×2 (08:45→22:08)
[2023-01-04] MEDS: HYDROXYZINE PAMOATE 25 MG CAPSULE PO (08:46)
[2023-01-04] MEDS: OMEPRAZOLE 40 MG CAPSULE.DR PO (08:46)
[2023-01-04] MEDS: METOPROLOL SUCCINATE 25 MG TAB.ER.24H PO (08:46)
[2023-01-04] MEDS: ATORVASTATIN CALCIUM 40 MG TABLET PO (08:46)
[2023-01-04] MEDS: AMLODIPINE BESYLATE 5 MG TABLET PO (08:46)
[2023-01-04] MEDS: FERROUS SULFATE 325 MG TABLET PO ×2 (08:46→22:07)
[2023-01-04] MEDS: ENOXAPARIN SODIUM 40 MG/0.4 ML SYRINGE SUBQ (08:46)
[2023-01-04] MEDS: ASPIRIN 81 MG TAB.CHEW PO (08:46)
--- NOTE | 2023-01-04 10:06 | RESP.RT ---
decreased to 40%
[2023-01-04 10:08] LABS: Allen Test POSITIVE (POSITIVE); Base Excess ABG 16.8 mmol/L (-2.0-2.0); HCO3 ABG 42.8 mmol/L (22.0-26.0); Oxygen Saturation ABG 98.4 %; pH ABG 7.326 (7.350-7.450)
[2023-01-04 10:09] LABS: Fractionated Inspired Oxygen 50 %; Liters per Minute 40; O2 Mode VAPOTHERM; Puncture Site R. RADIAL
[2023-01-04 10:11] LABS: ABG PCO2 82.2 mmHg (35.0-45.0)
--- NOTE | 2023-01-04 10:31 | CM.NOTE ---
Rounds made with Dr. Tenorio, no discharge today. Pt remains on vapother. PT and OT will evaluate pt today.
--- NOTE | 2023-01-04 11:00 | P.HP_ITS ---
H&P: HPI History of Present Illness Chief complaint: SOB Narrative: 72 y/o male with history of COPD on 3 LPM presents to ER with worsening SOB for several weeks. Increased SOB and fatigue with exertion. Frequent dry cough. Afebrile. No congestion or rhinorrhea. Chest tight and hard to take deep breath. Follows with pulmonology and on daily prednisone. To ER due to continued symptoms. SpO2 78-80% on 3 LPM and ABG showed pCO2 95.4. Started high flow oxygen. Chest x-ray with possible pneumonia and admitted. Started zithromax and rocephin for pneumonia. Started solu-medrol and DuoNeb. Slightly improved overnight but still very SOB. Review of Systems ROS Constitutional Reports: fatigue; Denies: fever or chills Cardiovascular Denies: chest pain, palpitations or edema Respiratory Reports: shortness of breath, cough and wheezing Gastrointestinal Denies: abdominal pain, nausea, vomiting or diarrhea Genitourinary Denies: painful urination [facility] Medical History (Updated 01/04/23 @ 09:19 by Jese Tenorio MD) Acute exacerbation of chronic obstructive pulmonary disease (COPD) ?J44.1 - Chronic obstructive pulmonary disease with (acute) exacerbation (ICD-10) Asbestos exposure ?Z77.090 - Contact with and (suspected) exposure to asbestos (ICD-10) High blood cholesterol ?E78.00 - Pure hypercholesterolemia, unspecified (ICD-10) History of tobacco abuse ?Z87.891 - Personal history of nicotine dependence (ICD-10) Hyperlipidemia ?E78.5 - Hyperlipidemia, unspecified (ICD-10) Hypoxia ?R09.02 - Hypoxemia (ICD-10) Left lower lobe pneumonia ?J18.9 - Pneumonia, unspecified organism (ICD-10) Shortness of breath ?R06.02 - Shortness of breath (ICD-10) Surgical History H/O heart artery stent ?Z95.5 - Presence of coronary angioplasty implant and graft (ICD-10) H/O shoulder surgery ?Z98.890 - Other specified postprocedural states (ICD-10) Hx of inguinal hernia surgery ?Z98.890 - Other specified postprocedural states (ICD-10) ?Z87.19 - Personal history of other diseases of the digestive system (ICD-10) Family History Father Family history of hypertension Social History Within the past year, how often did you have a drink containing alcohol: never Score interpretation: A score less than 4 is consistent with normal alcohol consumption. Smoking status: Current every day smoker Non-prescribed substance use: denies use Previous occupational history: retired Highest level of school completed/degree received: high school graduate Are you now , , , , never or living with a partner: Little interest or pleasure in doing things: not at all Feeling down, depressed, or hopeless: not at all Feel stressed/tense/nervous/anxious/difficulty sleeping: not at all Gender Identity: male Meds Home Medications and Allergies Home Medications Medication Instructions Recorded Confirmed Type amlodipine 5 mg tablet 5 mg PO QDAY 07/08/22 01/03/23 History aspirin 81 mg chewable tablet 81 mg PO QDAY 07/08/22 01/03/23 History fluticasone fur. 100 mcg-umeclid 1 inh inhalation Q24H 07/08/22 01/03/23 History 62.5 mcg-vilant 25 mcg inhalat.powder (Trelegy Ellipta) metoprolol succinate 25 mg 25 mg PO DAILY 07/08/22 01/03/23 History tablet,extended release 24 hr pantoprazole 40 mg tablet,delayed 40 mg PO DAILY 07/08/22 01/03/23 History release rosuvastatin 10 mg tablet 10 mg PO DAILY 07/08/22 01/03/23 History spironolactone 25 mg tablet 25 mg PO DAILY 07/08/22 01/03/23 History tamsulosin 0.4 mg capsule 0.4 mg PO Q24H 07/08/22 01/03/23 History theophylline 300 mg 300 mg PO Q12H 07/08/22 01/03/23 History tablet,extended release,12 hr prednisone 5 mg tablet 5 mg PO DAILY 11/22/22 01/03/23 History hydroxyzine pamoate 25 mg capsule 25 mg PO Q6H PRN Anxiety 30 days 11/26/22 01/03/23 Rx #30 caps ferrous gluconate 325 mg (37 mg 324 mg PO BID 01/03/23 01/03/23 History iron) tablet ipratropium 0.5 mg-albuterol 3 mg 3 ml inhalation Q4H PRN shortness 01/03/23 01/03/23 History (2.5 mg base)/3 mL nebulization of breath or wheezing soln mirtazapine 15 mg tablet 15 mg PO .qhs 01/03/23 01/03/23 History Allergies Allergy/AdvReac Type Severity Reaction Status Date / Time meperidine [From Demerol] Allergy Severe Anaphylaxis Verified 07/08/22 00:40 morphine Allergy Anaphylaxis Verified 07/08/22 00:40 acetaminophen AdvReac Anaphylaxis Verified 07/08/22 00:40 [From [facility] Day[facility] Severe Cold] dextromethorphan AdvReac Anaphylaxis Verified 07/08/22 00:40 [From [facility] Day[facility] Severe Cold] pseudoephedrine AdvReac Anaphylaxis Verified 07/08/22 00:40 [From [facility] [place] Daytime Severe Cold] Exam Constitutional Vital Signs, click to edit/add: Last Vital Signs Temp 97.5 F L 01/03/23 19:40 Pulse 104 H 01/04/23 08:47 Resp 26 H 01/04/23 08:47 BP 138/60 01/04/23 08:47 Pulse Ox 85 L 01/04/23 10:59 O2 Del Method Vapotherm 01/04/23 10:59 O2 Flow Rate 40 01/04/23 10:59 FiO2 40 01/04/23 10:59 Documenting provider has reviewed patient's vital signs: yes Common normals: no apparent distress, oriented x3 and alert HENMS Common normals: normocephalic Eye Common normals: EOMs intact bilaterally Respiratory Common normals: normal respiratory effort Auscultation: diminished lung sounds Cardio Common normals: regular rate, regular rhythm, no gallops, no murmurs and no rub GI Common normals: Normal to inspection, nondistended, normoactive bowel sounds present and non-tender Extremity Common normals: no pedal edema Results Labs Labs: Short CBC 01/03/23 01/04/23 Range/Units 16:47 04:56 WBC 12.5 H 5.7 (4.0-11.0) 10^3/uL Hgb 11.7 L 11.0 L (14.0-18.0) g/dL Hct 38.1 L 35.8 L (42.0-54.0) % Plt Count 285 262 (150-450) 10^3/uL BMP 01/03/23 01/04/23 16:47 04:56 Sodium 131 L 131 L Potassium 4.7 5.1 Chloride 88 L 91 L Carbon Dioxide 44.9 H 42.1 H BUN 16.0 17.0 Creatinine 0.62 L 0.67 L Glucose 123 H 100 Calcium 9.1 9.2 Liver Function 01/03/23 Range/Units 16:47 Total Bilirubin 0.3 (0.2-1.0) mg/dL AST 36 (15-37) U/L ALT 34 (16-63) U/L Alkaline Phosphatase 88 (46-116) U/L Albumin 3.2 L (3.4-5.0) g/dL ABG ABG results: 01/03/23 01/03/23 01/04/23 16:47 22:18 09:58 ABG pH 7.264 L* 7.326 L ABG pCO2 95.4 H* 82.2 H* ABG pO2 75.9 L 105.0 H ABG HCO3 43.2 H 42.8 H ABG O2 Saturation 94.5 98.4 ABG Base Excess 16.2 H 16.8 H VBG pH 7.298 L VBG pCO2 95.5 H* Attestation: I have reviewed the pertinent ABG results. Pulse Oximetry Attestation: I have reviewed the pertinent pulse oximetry results. Assessment and Plan Assessment and Plan (1) Community acquired pneumonia: (2) Acute on chronic respiratory failure with hypercapnia: (3) Acute on chronic respiratory failure with hypoxia: (4) Acute infective exacerbation of chronic obstructive airway disease: (5) Hypertension: Plan Presented with worsening hypoxia and CO2 retention but improved on high flow oxygen. Continue steroids and breathing treatments for COPD. Possible pneumonia on x-ray and continue antibiotics. Consult pulmonology. Resume home medication. Start PT/OT for weakness. Will need 2-3 days in the hospital.
[2023-01-04] MEDS: BUDESONIDE 0.5 MG/2 ML AMPULE NEB IH ×2 (11:28→20:20)
[2023-01-04] MEDS: 0.9 % SODIUM CHLORIDE 1,000 ML 75 ML IV (12:15)
--- NOTE | 2023-01-04 13:23 | PM.PLCN ---
History of Present Illness History of Present Illness Consult date: 01/04/23 Requesting physician: Jese Tenorio Reason for consult: COPD and hypoxemia Chief complaint: SOB Narrative: 72yo male, very well known to me as I have been following with him for years in the pulmonary clinic. He has end-stage COPD, on chronic O2 and prednisone, s/p [place] valves 07/28/2020. His pulmonary status has been slowly declining over the past year - this is his 3rd hospitalization for COPD since July 2022. I referred him to palliative care the end of November 2022, but he declined the services. The patient contacted my office last week stating he had difficulty breathing. He thought his breathing was doing better around [place], but yesterday, felt it was worsening more and decided to come to the ER. ABG noted hypercapnia. When I asked him about his breathing, he once again stated he was having panic attacks and anxiety that set him off. However, he stated it was due more to frequent nocturia and difficulty getting up to use the bedside urinal. He admitted to drinking a large amount of fluids in the evenings and before bedtime. He also has difficulty initiating a stream. He states he is feeling better now. He is currently on Vapotherm. I reviewed his history. He has FABIOLA - states his CPAP has been sitting on my night stand for the past 7-8 years . He stopped using it because it was too loud . Review of Systems ROS Status of ROS 10 or more systems reviewed and unremarkable except as noted in history and below Constitutional Reports: fatigue; Denies: fever, chills or night sweats Cardiovascular Denies: chest pain Respiratory Reports: shortness of breath Genitourinary Reports: urinary frequency, nighttime urination and difficulty starting urination Psychiatric Reports: anxiety and panic attacks [facility] Medical History (Updated 01/04/23 @ 16:35 by Moses Singh DO) Acute exacerbation of chronic obstructive pulmonary disease (COPD) ?J44.1 - Chronic obstructive pulmonary disease with (acute) exacerbation (ICD-10) Asbestos exposure ?Z77.090 - Contact with and (suspected) exposure to asbestos (ICD-10) High blood cholesterol ?E78.00 - Pure hypercholesterolemia, unspecified (ICD-10) History of tobacco abuse ?Z87.891 - Personal history of nicotine dependence (ICD-10) Hyperlipidemia ?E78.5 - Hyperlipidemia, unspecified (ICD-10) Hypoxia ?R09.02 - Hypoxemia (ICD-10) Left lower lobe pneumonia ?J18.9 - Pneumonia, unspecified organism (ICD-10) Shortness of breath ?R06.02 - Shortness of breath (ICD-10) Surgical History H/O heart artery stent ?Z95.5 - Presence of coronary angioplasty implant and graft (ICD-10) H/O shoulder surgery ?Z98.890 - Other specified postprocedural states (ICD-10) Hx of inguinal hernia surgery ?Z98.890 - Other specified postprocedural states (ICD-10) ?Z87.19 - Personal history of other diseases of the digestive system (ICD-10) Family History Father Family history of hypertension Social History Within the past year, how often did you have a drink containing alcohol: never Score interpretation: A score less than 4 is consistent with normal alcohol consumption. Smoking status: Current every day smoker Non-prescribed substance use: denies use Previous occupational history: retired Highest level of school completed/degree received: high school graduate Are you now , , , , never or living with a partner: Little interest or pleasure in doing things: not at all Feeling down, depressed, or hopeless: not at all Feel stressed/tense/nervous/anxious/difficulty sleeping: not at all Gender Identity: male Meds Home Medications and Allergies Home Medications Medication Instructions Recorded Confirmed Type amlodipine 5 mg tablet 5 mg PO QDAY 07/08/22 01/03/23 History aspirin 81 mg chewable tablet 81 mg PO QDAY 07/08/22 01/03/23 History fluticasone fur. 100 mcg-umeclid 1 inh inhalation Q24H 07/08/22 01/03/23 History 62.5 mcg-vilant 25 mcg inhalat.powder (Trelegy Ellipta) metoprolol succinate 25 mg 25 mg PO DAILY 07/08/22 01/03/23 History tablet,extended release 24 hr pantoprazole 40 mg tablet,delayed 40 mg PO DAILY 07/08/22 01/03/23 History release rosuvastatin 10 mg tablet 10 mg PO DAILY 07/08/22 01/03/23 History spironolactone 25 mg tablet 25 mg PO DAILY 07/08/22 01/03/23 History tamsulosin 0.4 mg capsule 0.4 mg PO Q24H 07/08/22 01/03/23 History theophylline 300 mg 300 mg PO Q12H 07/08/22 01/03/23 History tablet,extended release,12 hr prednisone 5 mg tablet 5 mg PO DAILY 11/22/22 01/03/23 History hydroxyzine pamoate 25 mg capsule 25 mg PO Q6H PRN Anxiety 30 days 11/26/22 01/03/23 Rx #30 caps ferrous gluconate 325 mg (37 mg 324 mg PO BID 01/03/23 01/03/23 History iron) tablet ipratropium 0.5 mg-albuterol 3 mg 3 ml inhalation Q4H PRN shortness 01/03/23 01/03/23 History (2.5 mg base)/3 mL nebulization of breath or wheezing soln mirtazapine 15 mg tablet 15 mg PO .qhs 01/03/23 01/03/23 History Allergies Allergy/AdvReac Type Severity Reaction Status Date / Time meperidine [From Demerol] Allergy Severe Anaphylaxis Verified 07/08/22 00:40 morphine Allergy Anaphylaxis Verified 07/08/22 00:40 acetaminophen AdvReac Anaphylaxis Verified 07/08/22 00:40 [From [facility] Daytime Severe Cold] dextromethorphan AdvReac Anaphylaxis Verified 07/08/22 00:40 [From Theraflu Daytime Severe Cold] pseudoephedrine AdvReac Anaphylaxis Verified 07/08/22 00:40 [From Theraflu Daytime Severe Cold] Exam Constitutional Vital Signs, click to edit/add: Last Vital Signs Temp 97.5 F L 01/03/23 19:40 Pulse 92 H 01/04/23 12:30 Resp 21 01/04/23 12:30 BP 138/60 01/04/23 08:47 Pulse Ox 97 01/04/23 12:30 O2 Del Method Vapotherm 01/04/23 11:31 O2 Flow Rate 40 01/04/23 11:31 FiO2 40 01/04/23 11:31 Documenting provider has reviewed patient's vital signs: yes General appearance: cooperative and comfortable Nutritional appearance: cachectic HENMT Other: Mallampati II. No candidiasis. Eye General eye: normal appearance of both eyes Chest Chest: abnormal inspection of the chest increased A-P diameter and symmetrical chest wall rise Respiratory Effort & inspection: tachypneic (mild) and pursed lip breathing Auscultation: diminished lung sounds bilateral throughout; no crackles, no rhonchi and no wheezes Percussion: hyperresonance bilateral Cardio Rate: regular rate Rhythm: regular rhythm Extremity Common normals: normal to inspection Neuro Sensorium/orientation: awake and alert Psych Speech: normal speech Thought process: normal thought process Results Laboratory Findings ABG, PT/INR, D-dimer: ABG ABG pH 7.326 (7.350-7.450) L 01/04/23 09:58 ABG pCO2 82.2 mmHg (35.0-45.0) H* 01/04/23 09:58 ABG pO2 105.0 mmHg (80.0-100.0) H 01/04/23 09:58 ABG O2 Saturation 98.4 % 01/04/23 09:58 PT/INR, D-dimer PT 9.9 sec (9.0-11.6) 01/03/23 16:47 INR 0.93 01/03/23 16:47 D-Dimer 0.35 mg/L FEU (<=0.59) 01/03/23 16:47 Abnormal lab findings: Abnormal Labs 01/03/23 01/03/23 01/04/23 16:47 22:18 04:56 WBC 12.5 H RBC 4.18 L 3.95 L Hgb 11.7 L 11.0 L Hct 38.1 L 35.8 L MPV 9.2 L 9.3 L Neut % (Auto) 90.1 H 94.9 H Lymph % (Auto) 2.0 L 2.3 L Eos % (Auto) 0.2 L 0.0 L Baso % (Auto) 0.0 L Neut # (Auto) 11.3 H Lymph # (Auto) 0.[address] # (Auto) 0.9 H 0.1 L Abs Immat Gran (auto) 0.05 H 0.04 H Imm/Tot Granulo (auto) 0.7 H ABG pH 7.264 L* ABG pCO2 95.4 H* ABG pO2 75.9 L ABG HCO3 43.2 H ABG Base Excess 16.2 H VBG pH 7.298 L VBG pCO2 95.5 H* Sodium 131 L 131 L Chloride 88 L 91 L Carbon Dioxide 44.9 H 42.1 H Creatinine 0.62 L 0.67 L Glucose 123 H Albumin 3.2 L 01/04/23 09:58 WBC RBC Hgb Hct MPV Neut % (Auto) Lymph % (Auto) Eos % (Auto) Baso % (Auto) Neut # (Auto) Lymph # (Auto) Lane # (Auto) Abs Immat Gran (auto) Imm/Tot Granulo (auto) ABG pH 7.326 L ABG pCO2 82.2 H* ABG pO2 105.0 H ABG HCO3 42.8 H ABG Base Excess 16.8 H VBG pH VBG pCO2 Sodium Chloride Carbon Dioxide Creatinine Glucose Albumin Assessment and Plan Assessment and Plan (1) Healthcare-associated pneumonia: Assessment and Plan: 1.? Healthcare-acquired pneumonia.? Present on admission.? Initial CXR suggested infiltrate.? He was due for LDCT in November 2022, but this was held off d/t admission earlier in November for LLL pneumonia.? Ordered CT chest to evaluate for infiltrate vs. mass.? Chest CT showed new bibasilar infiltrates and left fissural consolidation/atelectasis.? Currently on Rocephin + Zithromax for CAP coverage...will change Rocephin to Zosyn for expanded coverage. 2.? Acute exacerbation of COPD secondary to #1.? Very severe centrilobular emphysema, prednisone and O2-dependent, s/p [place] valve RUL 07/28/2020.? Continue with bronchodilators, steroids.? Patient has been declining over the past year; he was referred to [facility] palliative care at his office appointment 12/06/2022, but afterwards refused their services. 3.? Jrxun-qj-ttcmblt hypoxic respiratory failure.? Secondary to #1 & 2.? SpO2 in the 70?s on baseline 3L/min; improved with Vapotherm.? Goal SpO2 88-92% to prevent hyperoxic-induced hypercapnia. 4.? Wmihx-jq-sncnsqe hypercapnic respiratory failure. Secondary to #1 & 2.? On admission, pH was 7.264 & pCO2 95.4 Improved to 7.326 and 82.2 respectively this morning.? Will repeat ABG tomorrow to monitor trend towards improvement.? He may benefit from BiPAP or NIV; however, he has FABIOLA and was non-compliant with CPAP in the past ? this will make arranging for NIPPV much more difficult. 5.? FABIOLA.? Appears that original PSG was in 2006 with AHI 9.4 and CPAP titration to 6cmH2O, with F/U study in 2013 AHI 29 and CPAP titration 9cmH2O.? He has left the CPAP from 2014 sit on his night stand for nearly a decade without use.? Discussed with patient that if he is to be treated for hypercapnia, he will need to wear the mask very similar or even the same as the CPAP.? He voiced he would try it.? Will start BiPAP at 12/6 overnight and see how he does with this pressure. 6.? Nocturia with hesitancy. ?Several factors are in play.? First, he was educated to reduce the amount of fluids to drink prior to bedtime.? Secondary, he has underlying BPH which is affecting hesitancy.? It is possible that the LAMA in Trelegy (umeclindinium) is contributing, but it is a class effect.? He may need to see urology if persistent if he reduces fluid intake. 7.? Pulmonary cachexia.? He has already been evaluated by a food service technician.? I do not believe he has been following a high protein diet. 8.? History of tobacco abuse. 1.5ppd x 43 years.
--- NOTE | 2023-01-04 14:28 | CT_ITS ---
[address] [address] Patient Name: SOFYA ORTA MRN: [id number] date: 1950 Sex: M Assigned Patient Location: ICU Current Patient Location: ICU Accession/Order Number: [id number] Exam Date: 01/04/2023 14:46 Report Date: 01/04/2023 15:49 At the request of: JOSE CARLOS HANDY Procedure: CT chest wo con EXAM: CT chest wo con; [id number] REASON FOR EXAM: Abnormal CXR - infiltrate vs. mass vs. scar TECHNIQUE: Helical CT images of the chest were obtained without contrast. Multiplanar reformats and maximum intensity projection images were generated at the scanner. Dose reduction technique used: Automated exposure control and/or adjustment of the mA and/or kV according to patient size and/or use of iterative reconstruction technique. COMPARISON: Chest x-ray 01/03/[address] chest 11/18/2021. FINDINGS: Note: Compared with contrasted CT exams, noncontrast images are less sensitive for the detection of various types of soft tissue, solid organ, and vascular pathologies. Chest: Support devices: None. Visualized Thyroid: No nodules. Chest wall: Moderate bilateral gynecomastia. Nicole/mediastinum/esophagus: No mass. Thoracic lymph nodes: Several mildly enlarged lymph nodes are stable compared with 11/18/2021. For example, left lower paratracheal lymph node measuring 13 x 16 mm (series 3 image 48). No enlarging lymph nodes. Heart and vasculature: -No pericardial effusion or aortic aneurysm. -Mild coronary artery calcifications. Visualized portions of the upper abdomen: Within normal limits. Musculoskeletal: No acute abnormality or suspicious osseous lesion. Lungs/airways: -Severe centrilobular emphysema. -Mild bibasilar consolidation and ground glass opacification along with dependent moderate consolidation along the left horizontal fissure. -Several right-sided proximal airway stents are present which are either occluded or nearly occluded. Pleura: No pleural effusion or pneumothorax. CT/CT chest wo con IMPRESSION: Mild bibasilar consolidation and groundglass opacification compatible with either pneumonia or aspiration. Recommend follow-up noncontrast CT of the chest in 3 months to ensure resolution. Electronically authenticated by: GERTRUDIS MONTGOMERY Date: 01/04/2023 15:49
[2023-01-04] MEDS: PNEUMOCOCCAL 23 VACCINE 25 MCG/0.5 ML SYRINGE IM (15:58)
[2023-01-04] MEDS: PIPERACILLIN SODIUM/TAZOBACTAM 3.375 GM in 0.9 % SODIUM CHLORIDE 50 ML IV (18:09)
[2023-01-04] MEDS: AZITHROMYCIN 500 MG in 0.9 % SODIUM CHLORIDE 250 ML 250 MG IV (22:08)
[2023-01-04] MEDS: TAMSULOSIN HCL 0.4 MG CAPSULE PO (22:08)
[2023-01-04] MEDS: MIRTAZAPINE 15 MG TABLET PO (22:09)
[2023-01-05] VITALS (56 sets, daily range): BP systolic 98–142; BP diastolic 52–83; PULSE 77–110; RESP 8–34; TEMP 36.2–36.7; O2SAT 82–100
[2023-01-05] MEDS: PIPERACILLIN SODIUM/TAZOBACTAM 3.375 GM in 0.9 % SODIUM CHLORIDE 50 ML IV ×4 (01:07→23:59)
--- NOTE | 2023-01-05 02:08 | PC.NURSE ---
Patient requests off BIPAP to eat dinner and to drink. BIPAP removed and patient placed on Vapotherm 40 Liter flow and FIO2 increased to 40% due to patient SPO2 decreasing to 73% when first being placed on Vapotherm. SPO2 increased to 88% after short recovery cycle of less than 3 minutes.
[2023-01-05] MEDS: 0.9 % SODIUM CHLORIDE 1,000 ML 75 ML IV ×2 (03:07→17:06)
--- NOTE | 2023-01-05 03:14 | PC.NURSE ---
Patient resting on BIPAP. FIO2 at 40 % and patient SPO2 levels remaining at 98% at this time. FIO2 weaned to 30% without noted change in patients SPO2 levels. RT notified.
[2023-01-05] MEDS: IPRATROPIUM/ALBUTEROL SULFATE 3 ML AMPUL.NEB IH ×4 (04:10→20:19)
[2023-01-05 04:45] LABS: Hematocrit 35.2 % (42.0-54.0); Hemoglobin 10.6 g/dL (14.0-18.0); Immature Granulocytes Abs Auto 0.04 10^3/uL (0.00-0.03); Immature Granulocytes Pct Auto 0.4 % (0.0-0.5); Lymphocytes Absolute Auto 0.1 10^3/uL (1.2-3.8); Lymphocytes Percent Auto 1.5 % (20.5-60.0); Mean Corpuscular HGB Conc 30.1 g/dL (29.9-35.2); Mean Corpuscular Hemoglobin 27.5 pg (25.9-34.0); Mean Corpuscular Volume 91.4 fL (80.0-94.0); Mean Platelet Volume 9.7 fL (9.5-13.5); Monocytes Absolute Auto 0.5 10^3/uL (0.3-0.8); Monocytes Percent Auto 5.5 % (1.7-12.0); Neutrophils Absolute Auto 8.8 10^3/uL (1.4-6.5); Neutrophils Percent Auto 92.6 % (43.0-75.0); Platelet Count 273 10^3/uL (150-450); Red Blood Count 3.85 10^6/uL (4.70-6.10); Red Cell Distribution Width 11.9 % (11.0-15.0); White Blood Count 9.5 10^3/uL (4.0-11.0)
[2023-01-05 04:48] LABS: Anion Gap 0.3; BUN Creatinine Ratio 21.3; Calcium 9.3 mg/dL (8.5-10.1); Chloride 94 mmol/L (98-107); Estimated GFR (African America >60 (>=60); Estimated GFR (Non-African Ame >60 (>=60); Glucose 130 mg/dL (74-106); Potassium 5.3 mmol/L (3.5-5.1); Sodium 134 mmol/L (136-145)
[2023-01-05] MEDS: METHYLPREDNISOLONE SOD SUCC PF 40 MG/ML VIAL IVP ×4 (04:49→21:41)
[2023-01-05 06:00] LABS: HCO3 ABG 44.5 mmol/L (22.0-26.0); PO2 ABG 51.8 mmHg (80.0-100.0); pH ABG 7.387 (7.350-7.450)
[2023-01-05 06:01] LABS: Allen Test POSITIVE (POSITIVE); Base Excess ABG 19.5 mmol/L (-2.0-2.0); Fractionated Inspired Oxygen 30 %; O2 Mode BIPAP; Oxygen Saturation ABG 88.5 %; Puncture Site RR
[2023-01-05 06:02] LABS: ABG PCO2 74.1 mmHg (35.0-45.0)
--- NOTE | 2023-01-05 08:51 | PM.PLPN ---
Progress Note: A&P Assessment and Plan (1) Healthcare-associated pneumonia: Assessment and Plan: 1.? Healthcare-acquired pneumonia.? Present on admission.? Antibiotics changed to Zosyn + Zithromax given admission last month.? Clinically appears better. 2.? Acute exacerbation of COPD secondary to #1.? Very severe centrilobular emphysema, prednisone and O2-dependent, s/p Suches valve RUL 07/28/2020.? Continue current treatment (bronchodilators, steroids). 3.? Fvazq-jl-gimbrzz hypoxic respiratory failure.? Secondary to #1 & 2.? Patient was transitioned to Vapotherm FiO2 50%.? Initially, SpO2 was ~81%, but improved to ~91% with pursed lip breathing.? When he began talking, he lost concentration and FiO2 dropped down to 87%.? Patient was reminded to utilize pursed lip breathing. 4.? Lftge-zj-mnqvanm hypercapnic respiratory failure. Secondary to #1 & 2.? ?ABG showed improvement in pCO2 and pH, but pCO2 still remains elevated at 74 despite BiPAP 01/12.? Patient appears more awake and alert this AM, and nocturia was not as intense prior to BiPAP.? Patient would benefit from NIV ? see below in ?Plan?. 5.? FABIOLA.? This is not contributing to his hypercapnia ? BMI is <20, absolutely zero evidence for obesity-hypoventilation syndrome. 6.? Nocturia with hesitancy. ?Question untreated FABIOLA contributing.? Still encourage patient to reduce fluid intake in afternoon/evening. 7.? Pulmonary cachexia.? Follow dietary recs. Healthy weight gain. 8.? History of tobacco abuse. 1.5ppd x 43 years. ?LDCT was due 11/2022, but delayed d/t recent hospitalization.? As chest CT was done yesterday (01/04/2023), and a 3 month F/U CT is recommended, LDCT will not be scheduled until at least March 2024. Plan This patient has chronic hypercapnic respiratory failure and would benefit from a non-invasive ventilator (NIV).? He has very severe centrilobular emphysema, with most recent PFT 12/03/2021 noting FEV1/FVC 34% and FEV1 @ 19% (0.62L) ? this is despite Suches valves placed in the right upper lobe 07/28/2020. ?It has contributed to 3 hospital admissions in 2022 alone: 07/06/2022, 11/22/2022, 01/04/2023.? This very severe emphysema has caused chronic hypercapnic respiratory failure ? there is no evidence that his underlying FABIOLA is contributing to chronic CO2 retention (his BMI has persistently remained <20).? On admission 01/03/2023 @ 22:18, pH was 7.264 & pCO2 95.4.? When placed on Vapotherm 01/04/2023 @ 09:58, pH 7.326 & pCO2 82.2.? While on BiPAP 01/12 with FiO2 30% bleed-in this morning 01/05/2023 @ 05:47, pH 7.387 & pCO2 74.1.? Though pH corrected currently, pCO2 has not improved well enough, indicating failure of the BiPAP to adequately treat this patient?s chronic hypercapnic respiratory failure.? In my opinion, NIV which utilizes AVAPS-AE, including a back-up respiratory rate, due to a need for a targeted tidal volume, and monitored airway patency to adjust the EPAP are required to resolve the hypercapnic respiratory failure and improve alveolar recruitment.? Without NIV with AVAPS-AE therapy, this patient remains at increased risk for further hospitalizations, including life-threatening COPD exacerbations and czusm-kg-qyaurkt hypercapnic respiratory failure. Will order Trilogy AVAPSE-AE with these initial settings. -Max pressure: [id number] -PS Min: 6cmH2O -PS Max: [id number] -EPAP Min: 6cmH2O -EPAP Max: [id number] -Rate of change: 5cmH2O/min -Target Vt: 500mL -Respiratory rate: Auto -Rise time: 2-5 -FiO2: Bleed-in 30% Subjective Subjective Interval history: Discussed with RT & RN. Patient wore BiPAP 01/12 overnight with 30% FiO2 bleed-in. The patient tolerated the pressures well and voiced no complaints. He stated that he had a restful sleep and did not have to get up to urinate frequently unlike at home. He seems more awake and alert today, speech is not rambling as much as yesterday. Reviewed ABG - pH improved to 7.387 but pCO2 remains high at 74. Reviewed with patient the chest CT results that he has another pneumonia. After reviewing past admissions, it appears he frequently has respiratory infections - there is no known history of immunodeficiency. Exam Constitutional Vital Signs, click to edit/add: Last Vital Signs Temp 98.0 F 01/05/23 08:09 Pulse 101 H 01/05/23 08:09 Resp 26 H 01/05/23 08:09 BP 140/79 01/05/23 08:09 Pulse Ox 92 L 01/05/23 08:09 O2 Del Method Vapotherm 01/05/23 08:09 O2 Flow Rate 40 01/05/23 08:09 FiO2 45 01/05/23 07:30 Documenting provider has reviewed patient's vital signs: yes General appearance: cooperative and ill appearing chronically Nutritional appearance: cachectic Orientation/consciousness: Yes awake HENMT Other: Initially wearing BiPAP mask, transitioned to Vapotherm. Eye Common normals: PERRL Chest Chest: abnormal inspection of the chest increased A-P diameter and symmetrical chest wall rise Respiratory Effort & inspection: tachypneic and pursed lip breathing Auscultation: diminished lung sounds bilateral throughout Cardio Rate: tachycardic (Mild, in 100's) Rhythm: regular rhythm GI Common normals: Normal to inspection, nondistended, normoactive bowel sounds present Extremity Common normals: no clubbing, cyanosis or edema Neuro Sensorium/orientation: awake and alert Psych Attitude: calm and engaged Speech: normal speech Thought process: normal thought process
[2023-01-05] MEDS: ENOXAPARIN SODIUM 40 MG/0.4 ML SYRINGE SUBQ (08:54)
[2023-01-05] MEDS: GUAIFENESIN 600 MG TAB.ER.12H PO ×2 (08:55→21:23)
[2023-01-05] MEDS: AMLODIPINE BESYLATE 5 MG TABLET PO (08:55)
[2023-01-05] MEDS: OMEPRAZOLE 40 MG CAPSULE.DR PO (08:55)
[2023-01-05] MEDS: HYDROXYZINE PAMOATE 25 MG CAPSULE PO (08:55)
[2023-01-05] MEDS: THEOPHYLLINE 300 MG TAB.ER.12H PO ×2 (08:55→21:22)
[2023-01-05] MEDS: SPIRONOLACTONE 25 MG TABLET PO (08:55)
[2023-01-05] MEDS: ASPIRIN 81 MG TAB.CHEW PO (08:55)
[2023-01-05] MEDS: FERROUS SULFATE 325 MG TABLET PO ×2 (08:55→21:23)
[2023-01-05] MEDS: ATORVASTATIN CALCIUM 40 MG TABLET PO (08:55)
[2023-01-05] MEDS: METOPROLOL SUCCINATE 25 MG TAB.ER.24H PO (08:55)
--- NOTE | 2023-01-05 09:52 | CM.NOTE ---
Rounding with Dr. Tenorio, patient appears dyspneic at this time. Continue to follow for discharge needs. No anticipated discharge soon.
--- NOTE | 2023-01-05 10:16 | CM.NOTE ---
Spoke with pt regarding discharge planning, pt still undecided about long term at discharge. Pt voices his concern for his dog at home, son is caring for dog at this time. Pt will talk with son again today for discharge planning. Volunteered to call pt's son but pt states he would rather have conversation. Dr. Singh working with [facility] also regarding NIV for pt. Awaiting Dr. Singh's progress note to fax to [facility].
--- NOTE | 2023-01-05 11:24 | PM.PN ---
Progress Note: Subjective Subjective Interval history: Patient stable this am. Continues to have chest tightness and SOB. Feels like not able to take deep breath. Mild cough and productive of sputum. Normal appetite and no emesis or diarrhea. No chest pain or palpitations. Afebrile. Remains on high flow oxygen. Exam Constitutional Vital Signs, click to edit/add: Last Vital Signs Temp 98.0 F 01/05/23 08:09 Pulse 101 H 01/05/23 08:09 Resp 26 H 01/05/23 08:09 BP 140/79 01/05/23 08:09 Pulse Ox 92 L 01/05/23 08:09 O2 Del Method Vapotherm 01/05/23 08:09 O2 Flow Rate 40 01/05/23 08:09 FiO2 45 01/05/23 07:30 Documenting provider has reviewed patient's vital signs: yes Common normals: no apparent distress, oriented x3 and alert HENMT Common normals: normocephalic Eye Common normals: PERRL and EOMs intact bilaterally Respiratory Auscultation: wheezes and diminished lung sounds Cardio Common normals: regular rate, regular rhythm, no gallops, no murmurs and no rub GI Common normals: Normal to inspection, nondistended, normoactive bowel sounds present and non-tender Extremity Common normals: no pedal edema Progress Note: Objective Labs Labs: Short CBC 01/05/23 Range/Units 04:09 WBC 9.5 (4.0-11.0) 10^3/uL Hgb 10.6 L (14.0-18.0) g/dL Hct 35.2 L (42.0-54.0) % Plt Count 273 (150-450) 10^3/uL BMP 01/05/23 04:09 Sodium 134 L Potassium 5.3 H Chloride 94 L Carbon Dioxide 45.0 H BUN 13.0 Creatinine 0.61 L Glucose 130 H Calcium 9.3 ABG Attestation: I have reviewed the pertinent ABG results. Pulse Oximetry Attestation: I have reviewed the pertinent pulse oximetry results. Progress Note: A&P Assessment and Plan (1) Healthcare-associated pneumonia: (2) Acute on chronic respiratory failure with hypercapnia: (3) Acute on chronic respiratory failure with hypoxia: (4) Acute infective exacerbation of chronic obstructive airway disease: (5) Hypertension: Plan Patient stable and continue antibiotics, steroids, and breathing treatments. Continue PT/OT for weakness. Increased anxiety and add ativan. Wean oxygen as tolerated.
--- NOTE | 2023-01-05 11:27 | PT.DAILY ---
Physical Therapy Daily Note PT Daily Note/Assess Start: 01/05/23 11:23 Freq: Status: Active Protocol: Document 01/05/23 11:23 EVANGELINA (Rec: 01/05/23 11:27 EVANGELINA [id number]) Physical Therapy Daily Note/Assessment Time In/Time Out Time In 09:55 Time Out 10:20 Pain In Pain N/A Pain Out Pain N/A Subjective Subjective Pt supine upon arrival. On Vapotherm. SpO2 93%. Has been having panic attacks today per pt reports. Therapeutic Activity Time Therapeutic Activity Minutes (minutes) 8 Therapeutic Activity Units 1 Therapeutic Activity Treatment Bed Mobility Ability Standby Assistance Chair Transfer Ability Standby Assistance Therapeutic Activity Comments Pt agrees to PT but needs to use commode. Pt requires 10 min to talk himself into transferring to commode - very anxious. Spo2 levels stay between 89-93% while he is laying supine. Supine>sit SBA with increased time to complete. SPo2 91% with this activity. Sit>sit and pivot to commode SBA with assist for IV and O2 lines. Pt remains on commode while LINING FELLER BLINDSTITCH exits room. After 20 min LINING FELLER BLINDSTITCH returns to transfer pt back but he reports he has not gone to restroom yet. Nursing states they can assist with transfer from commode as he takes a while. Call light left within reach and nursing aware pt is on commode. Total Physical Therapy Time Total Therapy Minutes 8 Total Physical Therapy Units 1 Summary Daily Note Summary Increased time for all activities due to anxiety and SOB. Pt's SpO2 does drop with activity but quickly recovers with proper breathing techniques.
[2023-01-05] MEDS: BUDESONIDE 0.5 MG/2 ML AMPULE NEB IH ×2 (11:39→20:19)
--- NOTE | 2023-01-05 11:45 | RESP.RT ---
titrated down from 45%
--- NOTE | 2023-01-05 13:40 | CM.NOTE ---
Dr. Singh was able to get NIV for home approved and Medical Supplies will set up at discharge. Discussed with pt recommendations from PT, HH services at discharge. Pt states he has used [facility] in the past and would like to go with them. Pt not in agreement to skilled therapy as inpatient at this time. Clinical faxed to [facility].
--- NOTE | 2023-01-05 15:12 | CM.NOTE ---
Important Message From medicare discussed with pt, pt verbalizes understanding and signs paper. Original given to pt and copy placed on pt's chart.
--- NOTE | 2023-01-05 15:48 | PC.NURSE ---
Pt wants to sit on the BSC as long as possible. Educated pt needs to get off of BSC and give his bottom a rest.
--- NOTE | 2023-01-05 16:02 | RESP.RT ---
FiO2 decreased to 35%
--- NOTE | 2023-01-05 16:23 | PC.NURSE ---
pt dipped down to 68% on 40% vapotherm after working with OT.Pt is slowly up to 82 % Respiratory therapy was called to come and place pt on bipap at this time so the pt can rest. Pt is very concerned about having a BM, told pt if that time comes we can address it then, but his respiratory status takes presidence.
[2023-01-05] MEDS: LORAZEPAM 1 MG TABLET PO ×2 (17:50→23:58)
[2023-01-05] MEDS: TAMSULOSIN HCL 0.4 MG CAPSULE PO (21:23)
[2023-01-05] MEDS: MIRTAZAPINE 15 MG TABLET PO (21:23)
[2023-01-05] MEDS: AZITHROMYCIN 500 MG in 0.9 % SODIUM CHLORIDE 250 ML 250 MG IV (21:23)
[2023-01-06] VITALS (48 sets, daily range): BP systolic 101–150; BP diastolic 49–66; PULSE 80–114; RESP 8–33; TEMP 36.3; O2SAT 85–98
[2023-01-06] MEDS: METHYLPREDNISOLONE SOD SUCC PF 40 MG/ML VIAL IVP ×4 (02:51→20:37)
[2023-01-06] MEDS: IPRATROPIUM/ALBUTEROL SULFATE 3 ML AMPUL.NEB IH ×4 (04:05→20:05)
--- NOTE | 2023-01-06 04:30 | XR_ITS ---
[address] [address] Patient Name: SOFYA ORTA MRN: [id number] date: 1950 Sex: M Assigned Patient Location: ICU Current Patient Location: ICU Accession/Order Number: [id number] Exam Date: 01/06/2023 04:25 Report Date: 01/06/2023 07:56 At the request of: JOSE CARLOS HANDY Procedure: XR chest 1V EXAMINATION: XR chest 1V HISTORY: Check lung status COMPARISON: CT chest 12/27/2022, XR chest 01/03/2023 FINDINGS: LUNGS: Mild/moderate opacities within lung bases bilaterally and left midlung. Marked chronic emphysematous changes. VASCULATURE: No increased pulmonary vasculature. PLEURA: No pneumothorax, effusion, or pleural thickening. CARDIAC: No cardiomegaly or cardiac silhouette abnormality. MEDIASTINUM: No visible mass or adenopathy. BONES: No fracture or visible bone lesion. OTHER: Negative. XR/XR chest 1V IMPRESSION: 1. Interval increase in bibasilar infiltrates compared to 01/03/2023 CHEST XRAY. 2. Marked chronic emphysematous changes. Electronically authenticated by: VARGAS HARTLEY Date: 01/06/2023 07:56
--- NOTE | 2023-01-06 05:14 | PC.NURSE ---
Patient remains on BIPAP currently. Resting with eyes closed. Very somnolent and opens eyes when name called multiple times and patient's arm touched and rubbed. Patient remains on BIPAP with setting on 01/12 and 40% FIO2. Patient does not remain awake to converse with RN at this time. RT in at bedside. PRN Anxiety med, new to patient previously given and patient has been resting since administration last dose 01/05/23 at 2355.
[2023-01-06 05:27] LABS: Anion Gap -0.8; Calcium 9.2 mg/dL (8.5-10.1); Carbon Dioxide 43.6 mmol/L (21.0-32.0); Chloride 96 mmol/L (98-107); Estimated GFR (African America >60 (>=60); Estimated GFR (Non-African Ame >60 (>=60); Glucose 129 mg/dL (74-106); Potassium 4.8 mmol/L (3.5-5.1); Sodium 134 mmol/L (136-145)
[2023-01-06 05:29] LABS: Basophils Percent Auto 0.2 % (0.2-2.0); Hematocrit 35.6 % (42.0-54.0); Hemoglobin 10.6 g/dL (14.0-18.0); Immature Granulocytes Abs Auto 0.18 10^3/uL (0.00-0.03); Immature Granulocytes Pct Auto 1.4 % (0.0-0.5); Lymphocytes Absolute Auto 0.1 10^3/uL (1.2-3.8); Mean Corpuscular HGB Conc 29.8 g/dL (29.9-35.2); Mean Corpuscular Hemoglobin 27.7 pg (25.9-34.0); Mean Corpuscular Volume 93.2 fL (80.0-94.0); Mean Platelet Volume 9.3 fL (9.5-13.5); Monocytes Absolute Auto 0.6 10^3/uL (0.3-0.8); Monocytes Percent Auto 4.5 % (1.7-12.0); Neutrophils Absolute Auto 12.1 10^3/uL (1.4-6.5); Neutrophils Percent Auto 92.9 % (43.0-75.0); Platelet Count 265 10^3/uL (150-450); Red Blood Count 3.82 10^6/uL (4.70-6.10); Red Cell Distribution Width 11.9 % (11.0-15.0)
[2023-01-06] MEDS: 0.9 % SODIUM CHLORIDE 1,000 ML 75 ML IV ×2 (06:32→20:36)
[2023-01-06] MEDS: FLUMAZENIL 0.5 MG/5 ML VIAL 0.2 MG IV ×2 (07:24→07:43)
[2023-01-06 08:13] LABS: Base Excess ABG 17.4 mmol/L (-2.0-2.0); HCO3 ABG 44.2 mmol/L (22.0-26.0); Oxygen Saturation ABG 84.6 %; PO2 ABG 48.1 mmHg (80.0-100.0)
[2023-01-06 08:14] LABS: Allen Test POSITIVE (POSITIVE); Fractionated Inspired Oxygen 30 %; O2 Mode BI PAP; Puncture Site L RADIAL; Rate 22
[2023-01-06 08:16] LABS: ABG PCO2 94.9 mmHg (35.0-45.0); pH ABG 7.276 (7.350-7.450)
--- NOTE | 2023-01-06 09:14 | RESP.RT ---
increased FiO2 to 45% due to desats into low 80s Pt maintaining SpO2 90-93%
[2023-01-06] MEDS: THEOPHYLLINE 300 MG TAB.ER.12H PO ×2 (09:22→20:40)
[2023-01-06] MEDS: GUAIFENESIN 600 MG TAB.ER.12H PO ×2 (09:22→20:40)
[2023-01-06] MEDS: ASPIRIN 81 MG TAB.CHEW PO (09:22)
[2023-01-06] MEDS: AMLODIPINE BESYLATE 5 MG TABLET PO (09:22)
[2023-01-06] MEDS: ATORVASTATIN CALCIUM 40 MG TABLET PO (09:22)
[2023-01-06] MEDS: ENOXAPARIN SODIUM 40 MG/0.4 ML SYRINGE SUBQ (09:22)
[2023-01-06] MEDS: SPIRONOLACTONE 25 MG TABLET PO (09:22)
[2023-01-06] MEDS: FERROUS SULFATE 325 MG TABLET PO ×2 (09:23→20:50)
[2023-01-06] MEDS: METOPROLOL SUCCINATE 25 MG TAB.ER.24H PO (09:23)
[2023-01-06] MEDS: OMEPRAZOLE 40 MG CAPSULE.DR PO (09:23)
[2023-01-06] MEDS: PIPERACILLIN SODIUM/TAZOBACTAM 3.375 GM in 0.9 % SODIUM CHLORIDE 50 ML IV ×2 (09:23→16:32)
[2023-01-06] MEDS: BUDESONIDE 0.5 MG/2 ML AMPULE NEB IH ×2 (10:12→20:05)
--- NOTE | 2023-01-06 10:15 | RESP.RT ---
Added duoderm to protect bridge of nose
--- NOTE | 2023-01-06 10:34 | PT.DAILY ---
Physical Therapy Daily Note PT Daily Note/Assess Start: 01/05/23 11:23 Freq: Status: Active Protocol: Document 01/06/23 10:34 EVANGELINA (Rec: 01/06/23 10:34 EVANGELINA [id number]) Visit Not Completed Visit Not Completed Visit Not Completed Due to: Nursing request to hold Other Reason Visit Not Completed Rough night/morning. On bipap. Hold per nursing. Physical Therapy Daily Note/Assessment Time In/Time Out Time In 09:30 Time Out 09:30 Pain In Pain N/A Pain Out Pain N/A GG. Functional Abilities and Goals-Complete for Swing Bed Patients Only [id number]. Self-Care [id number]. Mobility
--- NOTE | 2023-01-06 10:57 | PM.PN ---
Progress Note: Subjective Subjective Interval history: Patient confused this am. Given ativan for anxiety then night time dose of remeron. Sedated overnight and ABG showed elevated CO2. Reversed ativan and now agitated. Not answering questions but appears anxious. On BiPAP. Exam Constitutional Vital Signs, click to edit/add: Last Vital Signs Temp 97.4 F L 01/06/23 07:38 Pulse 103 H 01/06/23 10:15 Resp 21 01/06/23 07:38 BP 114/52 01/06/23 07:38 Pulse Ox 93 L 01/06/23 10:15 O2 Del Method BIPAP 01/06/23 10:15 O2 Flow Rate 40 01/05/23 22:20 FiO2 35 01/06/23 10:15 Documenting provider has reviewed patient's vital signs: yes Common normals: alert General appearance: anxious HENMT Common normals: normocephalic Eye Common normals: PERRL and EOMs intact bilaterally Respiratory Common normals: normal respiratory effort Auscultation: wheezes and diminished lung sounds Cardio Common normals: regular rate, regular rhythm, no gallops, no murmurs and no rub GI Common normals: Normal to inspection, nondistended, normoactive bowel sounds present and non-tender Extremity Common normals: no pedal edema Progress Note: Objective Labs Labs: Short CBC 01/06/23 Range/Units 04:16 WBC 13.0 H (4.0-11.0) 10^3/uL Hgb 10.6 L (14.0-18.0) g/dL Hct 35.6 L (42.0-54.0) % Plt Count 265 (150-450) 10^3/uL BMP 01/06/23 04:16 Sodium 134 L Potassium 4.8 Chloride 96 L Carbon Dioxide 43.6 H BUN 14.0 Creatinine 0.61 L Glucose 129 H Calcium 9.2 Progress Note: A&P Assessment and Plan (1) Healthcare-associated pneumonia: (2) Acute on chronic respiratory failure with hypercapnia: (3) Acute on chronic respiratory failure with hypoxia: (4) Acute infective exacerbation of chronic obstructive airway disease: (5) Hypertension: Plan Currently agitated and anxious but was oversedated from ativan. Decrease dose and give BID PRN. Do not give close together with remeron. Pulmonology managing COPD. Continue antibiotics, steroids, and breathing treatments. Continue PT for weakness.
[2023-01-06 10:59] LABS: Allen Test POSITIVE (POSITIVE); Base Excess ABG 16.8 mmol/L (-2.0-2.0); Fractionated Inspired Oxygen 35 %; HCO3 ABG 44.1 mmol/L (22.0-26.0); O2 Mode BI PAP; Oxygen Saturation ABG 87.2 %; PO2 ABG 53.7 mmHg (80.0-100.0); Puncture Site L. RADIAL
[2023-01-06 11:00] LABS: BIPAP Pressure 16/6; Rate 23
[2023-01-06 11:01] LABS: pH ABG 7.247 (7.350-7.450)
--- NOTE | 2023-01-06 11:35 | P.PLPN_ITS ---
Progress Note: A&P Assessment and Plan (1) Healthcare-associated pneumonia: Assessment and Plan: 1. Healthcare-acquired pneumonia.? Gram + cocci in sputum, suspect Staphylococcus (e.g. MRSA) at this point. Will discontinue Zithromax, add Vancomycin, and continue Zosyn. Awaiting final sensitivities. 2. Mental status changes secondary to toxic metabolic encephalopathy associated with benzodiazepine leading to worsening hypercapnic respiratory failure from depressed respiratory drive, +/- contribution from severe sepsis. Patient received 2 doses of Ativan yesterday/last night. He was obtunded this morning, became more alert after a total of flumazenil 0.4mg IVP. He still remains let hargic, but not completely obtunded as when I saw him earlier this morning. 3. Ygwga-wr-sorrvye hypercapnic respiratory failure. Secondary to pneumonia & AECOPD, now exacerbated by benzodiazepine-induced respiratory depression. ?NIV was approved for him through [facility] and they will have it set up for him outpatient. That does not help us at this time. Hypercapnia is worsening, BiPAP has been adjusted accordingly, widening the IPAP/EPAP gradient. If it continues to worsen, he will need intubation with ventilator support. When I spoke with him later this morning, he was able to answer my questions appropriately. I explained if the BiPAP fails to correct worsening hypercapnia, the next step would be to intubate him. I explained what that entailed, including ventilator support. He answered yes that he is agreeable to intubation in the event it is deemed necessary. 4. Severe sepsis secondary to pneumonia. Patient continues to have tachycardia, tachypnea, and worsening leukocytosis today. BCx2 showed no growth but Gram + cultures in sputum, concerned for MSSA/MRSA. CXR worse - he does have a history of aspiration pneumonia (? did he aspirate while obtunded causing an aspiration pneumonitis?) Antibiotics adjusted. Continue supportive care. 5. Zozkn-vb-typhtds hypoxic respiratory failure.? Secondary to pneumonia & AECOPD. On BiPAP currently, attempting to maintain SpO2 88-92%, and allowing for mild permissive hypoxemia in this case (SpO2 86-87%). 6. Acute exacerbation of COPD secondary to #1.? Very severe centrilobular emphysema, prednisone and O2-dependent, s/p [employer] valve RUL 07/28/2020.? He remains on bronchodilators and steroids. Check theophylline level tomorrow. 7. 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 Anxiety and panic attacks are a significant issue for him, associated with his breathing, and creates a vicious feedback loop. I would avoid any benzodiazpine in this patient given his CO2-retention. He was started on hydroxyzine last inpatient visit, but as of his office visit with me 12/06/2022, it was discontinued (and unfortunately I did not address this with him). Ideally would start antidepressant (mirtazepine was started on admission?) but there are too many variables at this point. I will need to strongly recommend palliative care again, or at least counseling/psychiatrist, after discharge. 8. Urinary incontinence. Has nocturia with hesitancy at home. Attempting to use the urinal/commode is causing significant dyspnea for the patient. Additionally, it is difficult to track accurate I/O's. Patient voiced agreement for Garcia catheter insertion. Attempting to avoid medications with anticholinergic properties unless it is felt the beneftis > risks. 9. FABIOLA.? Treated with BiPAP/will be treated with NIV. 10 Pulmonary cachexia.? Follow dietary recs. Healthy weight gain. 11.?History of tobacco abuse. 1.5ppd x 43 years. Plan Patient's condition is worsening - most notably hypercapnia. I was at the patient's bedside while flumazenil was being administered, which I ordered the second dose after witnessing the patient waking up and then drifting back to sleep. Despite BiPAP, he is continuing to have worsening hypercapnia. Will look into utilizing an NIV here for assured volumes to make all attempts to intubate him - given his pulmonary function, it may be extremely difficult to wean him, though with pneumonia, it is a reversible cause. 70 minutes critical care time were spent with him this morning - 40minutes @ 07:00 monitoring him during the flumazenil administration. Reassessed patient after repeat blood gas @ 11:00 for 30 minutes. Subjective Subjective Interval history: Patient was seen this morning ~07:00. He was on the BiPAP overnight, but pulling very shallow tidal volumes (<200mL). He was obtunded and was unable to be aroused by verbal command orsternal rub, and he had only a minimal withdrawal from applying pressure onto his finger. Patient received a 1mg dose of Ativan last evening ~18:00 and another ~midnight for anxiety. Patient was given flumazenil 0.2mg IVP, after which he opened his eyes and then drifted back off to sleep. A second dose of flumazenil 0.2mg IVP was administered and the patient was more awake and able to answer questions, but groggy. An ABG was obtained which showed worsening pH/pCO2. BiPAP was adjusted, but on repeat, pCO2 increased now >100. Further BiPAP adjustments were made (18/5, backup-rate 16), and the RT spent a significant amount of time attempting to fit the mask better for the patient as it kept sliding, creating an air leak. Reviewed CXR - worsening bibasilar infiltrates. Sputum cultures returned positive for Gram + cocci ; he is currently on Zosyn + Zithromax. Exam Constitutional Vital Signs, click to edit/add: Last Vital Signs Temp 97.4 F L 01/06/23 07:38 Pulse 103 H 01/06/23 10:15 Resp 21 01/06/23 07:38 BP 114/52 01/06/23 07:38 Pulse Ox 93 L 01/06/23 10:15 O2 Del Method BIPAP 01/06/23 10:15 O2 Flow Rate 40 01/05/23 22:20 FiO2 35 01/06/23 10:15 Documenting provider has reviewed patient's vital signs: yes Nutritional appearance: cachectic Orientation/consciousness: Yes lethargic Other: After flumazenil, he was able to say who I was and repeat his date correctly. HENNV Other: Wearing BiPAP mask Chest Chest: abnormal inspection of the chest increased A-P diameter and symmetrical chest wall rise Respiratory Effort & inspection: tachypneic (Mild (low 20's)) Auscultation: crackles Laterality: bilateral at the base and diminished lung sounds bilateral Cardio Rate: tachycardic Rhythm: regular rhythm Other: Multiple PVCs & PACs. GI Inspection: normal to inspection Extremity Common normals: no clubbing, cyanosis or edema Neuro Speech: speech normal (slow but no slurring) Motor exam: no movement abnormalities noted (Strength is weak 3/3 with hands /arms, but no lateralization noted) and fasciculations involving the proximal upper extremity (right shoulder/pectoral region) Psych Attitude: calm (he has not been overly anxious or agitated for me)
--- NOTE | 2023-01-06 11:37 | CM.NOTE ---
Rounds made with Dr. Tenorio, decline in pt's condition today. No discharge
--- NOTE | 2023-01-06 13:26 | RESP.RT ---
AVAPS Max Pressure 20, PS min 6, PS max 10, EPAP min 6, EPAP max 10, Target volume 500
[2023-01-06] MEDS: VANCOMYCIN HCL 1,000 MG in 0.9 % SODIUM CHLORIDE 250 ML 250 MG IV (13:47)
[2023-01-06 14:16] LABS: Allen Test POSITIVE (POSITIVE); Base Excess ABG 17.1 mmol/L (-2.0-2.0); HCO3 ABG 43.2 mmol/L (22.0-26.0); O2 Mode AVAPS; Oxygen Saturation ABG 91.5 %; PO2 ABG 57.3 mmHg (80.0-100.0)
[2023-01-06 14:17] LABS: Fractionated Inspired Oxygen 35 %; Minute Volume 9.8; Puncture Site L RADIAL; Rate 23; Tidal Volume 424
[2023-01-06 14:20] LABS: ABG PCO2 83.7 mmHg (35.0-45.0)
[2023-01-06] MEDS: BUSPIRONE HCL 10 MG TABLET 5 MG PO ×2 (15:14→21:01)
--- NOTE | 2023-01-06 16:06 | RESP.RT ---
AVAPS-AE target Vt 500, Max P 20, PS 6/10, EPAP n6/10, RR12, Ti 1.0, 40%; Alarms: 400/1000, VE 4.8 RR 10/55, circuit disconnect 5 sec.
--- NOTE | 2023-01-06 20:17 | RESP.RT ---
Avaps Settings Vt 500 rate 12 max pressure 20 i time 1.0 Fio2 35% Ps Min/Max 6/10 Epap Min/Max 6/10
[2023-01-06] MEDS: TAMSULOSIN HCL 0.4 MG CAPSULE PO (20:36)
[2023-01-06] MEDS: MIRTAZAPINE 15 MG TABLET PO (21:00)
--- NOTE | 2023-01-06 23:12 | RESP.RT ---
vt 500 max pressure 20 epap min/max 6/10 ps min/max 6/10 rate 12
[2023-01-07] VITALS (40 sets, daily range): BP systolic 150–159; BP diastolic 65–89; PULSE 49–119; RESP 12–34; TEMP 36.4–37.1; O2SAT 86–97
[2023-01-07] MEDS: PIPERACILLIN SODIUM/TAZOBACTAM 3.375 GM in 0.9 % SODIUM CHLORIDE 50 ML IV ×3 (01:00→17:46)
[2023-01-07] MEDS: VANCOMYCIN HCL 1,000 MG in 0.9 % SODIUM CHLORIDE 250 ML 250 MG IV ×2 (02:49→14:44)
[2023-01-07] MEDS: METHYLPREDNISOLONE SOD SUCC PF 40 MG/ML VIAL IVP ×4 (03:17→20:46)
--- NOTE | 2023-01-07 04:00 | XR_ITS ---
[address] [address] Patient Name: SOFYA ORTA MRN: [id number] date: 1950 Sex: M Assigned Patient Location: ICU Current Patient Location: ICU Accession/Order Number: [id number] Exam Date: 01/07/2023 04:45 Report Date: 01/07/2023 06:31 At the request of: JOSE CARLOS HANDY Procedure: XR chest 1V EXAMINATION: XR chest 1V HISTORY: Pneumonia COMPARISON: XR chest 01/06/2023, 01/03/2023 FINDINGS: LUNGS: Hyperexpanded lungs with greater lucency within lung apices consistent with COPD. Patchy and confluent opacities within the mid and lower left lung. VASCULATURE: No increased pulmonary vasculature. PLEURA: Bilateral pleural effusions. CARDIAC: No cardiomegaly or cardiac silhouette abnormality. MEDIASTINUM: No visible mass or adenopathy. BONES: No fracture or visible bone lesion. OTHER: Negative. XR/XR chest 1V IMPRESSION: 1. Moderate left pulmonary infiltrates most suggestive of pneumonia; stable to slightly increased. 2. Small-moderate bilateral pleural effusions; increased since prior study. Electronically authenticated by: VARGAS HARTLEY Date: 01/07/2023 06:31
[2023-01-07] MEDS: IPRATROPIUM/ALBUTEROL SULFATE 3 ML AMPUL.NEB IH ×4 (04:30→20:08)
[2023-01-07 04:36] LABS: Basophils Percent Auto 0.1 % (0.2-2.0); Hematocrit 32.3 % (42.0-54.0); Hemoglobin 9.7 g/dL (14.0-18.0); Immature Granulocytes Abs Auto 0.06 10^3/uL (0.00-0.03); Immature Granulocytes Pct Auto 0.5 % (0.0-0.5); Lymphocytes Absolute Auto 0.2 10^3/uL (1.2-3.8); Lymphocytes Percent Auto 1.5 % (20.5-60.0); Mean Corpuscular Hemoglobin 27.8 pg (25.9-34.0); Mean Corpuscular Volume 92.6 fL (80.0-94.0); Mean Platelet Volume 9.2 fL (9.5-13.5); Monocytes Absolute Auto 1.1 10^3/uL (0.3-0.8); Neutrophils Percent Auto 88.9 % (43.0-75.0); Platelet Count 218 10^3/uL (150-450); Red Blood Count 3.49 10^6/uL (4.70-6.10); Red Cell Distribution Width 11.9 % (11.0-15.0); White Blood Count 12.4 10^3/uL (4.0-11.0)
--- NOTE | 2023-01-07 04:39 | RESP.RT ---
vt 500 rate 12 ps min/max 6/10 epap min/max 6/10 max pressure 20
[2023-01-07 04:56] LABS: Base Excess ABG 19.5 mmol/L (-2.0-2.0); HCO3 ABG 44.9 mmol/L (22.0-26.0); PO2 ABG 58.7 mmHg (80.0-100.0); pH ABG 7.367 (7.350-7.450)
[2023-01-07 04:57] LABS: Allen Test POSITIVE (POSITIVE); Fractionated Inspired Oxygen 45 %; O2 Mode AVAPS; Oxygen Saturation ABG 92.6 %; Puncture Site RR; Rate 12; Tidal Volume 500
[2023-01-07 05:00] LABS: ABG PCO2 78.2 mmHg (35.0-45.0)
[2023-01-07 05:17] LABS: BUN Creatinine Ratio 19.4; Carbon Dioxide 43.1 mmol/L (21.0-32.0); Chloride 97 mmol/L (98-107); Estimated GFR (African America >60 (>=60); Estimated GFR (Non-African Ame >60 (>=60); Glucose 103 mg/dL (74-106); Potassium 5.1 mmol/L (3.5-5.1); Sodium 136 mmol/L (136-145)
[2023-01-07] MEDS: BUSPIRONE HCL 10 MG TABLET 5 MG PO ×3 (08:10→21:26)
--- NOTE | 2023-01-07 08:12 | RESP.RT ---
Patient taken off Bipap and placed on Vapoptherm. Patient resting comfortably at this time.
--- NOTE | 2023-01-07 08:23 | P.PLPN_ITS ---
Progress Note: A&P Assessment and Plan (1) Healthcare-associated pneumonia: Assessment and Plan: 1. Healthcare-acquired pneumonia.? Remains on Zosyn & Vancomycin ? awaiting final C&S from sputum regarding the Gram + cocci in sputum, still suspect Staphylococcus (e.g. MRSA).? CXR read this AM is slightly worse, but clinically patient does appear slightly better.? Will need to monitor closely over the next 48 hours.? Recheck CXR in AM. 2. Mental status changes secondary to toxic metabolic encephalopathy associated with benzodiazepine leading to worsening hypercapnic respiratory failure from depressed respiratory drive, +/- contribution from severe sepsis.? Improved.? Only mild confusion reported last night; none witnessed by me today.? No benzodiazepines! 3. Ozsft-xe-hhzthao hypercapnic respiratory failure. Secondary to pneumonia & AE COPD, with an acute exacerbation from benzodiazepine-induced respiratory depression on 01/06/2023.? Trilogy NIV started yesterday after patient failed BiPAP. ?He responded very well to the AVAPS-AE settings, which were those I were going to start him on outpatient.? ABG shows improvement in pH to 7.367 and pCO2 @ 78.2. For now, will continue Vapotherm (hopefully transitioning to traditional nasal cannula) during the day, and using NIV during HS/naps & PRN dyspnea.? Will hold off on reordering ABG at this time unless his clinical status changes for the worse. 4. Severe sepsis secondary to pneumonia.? Slight increase in LLL infiltrate on CXR, but clinically appears better.? Will need to continue to monitor him very closely. 5. Stglx-lu-vhmkihc hypoxic respiratory failure.? Secondary to pneumonia & AECOPD. ?As above ? Vapotherm during day, NIV during HS/naps & PRN dyspnea.? Goal SpO2 88-92% to prevent hyperoxic-induced hypercapnia.? 6. Acute exacerbation of COPD secondary to #1.? Very severe centrilobular emphysema, prednisone and O2-dependent, s/p [place] valve RUL 07/28/2020.? Theophylline level high therapeutic at 19.? Patient is tachycardic, which is a side effect of theophylline, though he is also on frequent beta agonist treatments, along with sepsis, which can increase heart rate.? Will monitor for now.? If it becomes symptomatic, will need to titrate down the dose. 7. 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 Buspar 5mg TID started yesterday.? He has responded well to it so far.? Will consider titrating it up to 10mg the next 1-2 days depending if there are any episodes of breakthrough anxiety/panic attacks. 8. Urinary incontinence.? Garcia inserted yesterday d/t increased dyspnea utilizing even bedside urinal, as well as to monitor accurate I/O?s.? Patient appears to have a 600+ balance over past 24 hours, but he was incontinent prior to Garcia insertion.? Need to monitor as there is suggestion of development of pleural effusion. Continue Garcia today. 9. Essential hypertension.? BP have been slightly elevated over the past 1-2 days (SBP 150?s).? I would avoid any further increase in metoprolol d/t potential risk of bronchospasm & albuterol antagonism (despite it being a beta-1 selective antagonist, there still remains cross-over).? He is on amlodipine 5mg/day ? would rather increase that to 10mg.? 10. Iron deficiency anemia.? There has been a slight trend down in Hb since admission. He remains on ferrous sulfate.? No plans for transfusion unless Hb < 7g/dL. 11. FABIOLA.? Was non-compliant with CPAP before this admission, but he is doing well on NIV.? I do not anticipate he will be non-compliant with this at discharge, especially as he voiced understanding it is being used also to treat his end-stage COPD. 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 Continue dietary recs. Healthy weight gain. 13.?History of tobacco abuse. 1.5ppd x 43 years. 14. Candidia + sputum.? Normal jenni/contaminant. No need to treat. 15. Weakness.? Ordering PT/OT.? Patient voiced wishes to return home.? Realistically, he may be too weak and may require a short SNF stay.? Will see how he progresses and what PT/OT says. 16. Constipation. He is complaining of constipation. He has not eaten much over the past few days as well. PRN Laxatives are already on the chart which can be administered. Plan Patient has improved remarkably well compared to yesterday. He still have a very labile respiratory status and as we are now transitioning between Vapotherm & NIV, I recommend continued monitoring in the ICU (as we do not have a stepdown unit). I anticipate an additional 3 days he will require of hospitalization until his oxygenation and overall pulmonary status improves to the point for consideration of discharge. PT/OT ordered to evaluate potential qualification of SNF, or at least home health. Subjective Subjective Interval history: Please note: The patient has been transferred over from the hospitalist service by Dr. Tenorio to solely under my care; I am now the current attending physician. Please review yesterday's extensive documentation. Discussed with RN & RT. He is doing much better this morning. Reported only mild confusion last night but he is A&O this AM. I was not called for any issues regarding anxiety or agitation. Buspar 5mg TID was started yesterday. He was transitioned over to Trilogy from BiPAP yesterday. He has done much better on this. ABGs this morning are improved - pH 7.367 & pCO2 78.2. He denies any issues with the pressures or volumes. The generic mask we have here @ [facility] is ill-fitting and creates an air leak when it slips over his lower lip. We took him off the Trilogy this AM and he is doing well on Vapotherm. He asked me for food this AM, which is a first. He feels weak, but he states he wants to go home, not go to a SNF. Still awaiting final culture on the Gram + cocci sputum sample. Exam Constitutional Vital Signs, click to edit/add: Last Vital Signs Temp 97.4 F L 01/06/23 07:38 Pulse 119 H 01/07/23 06:00 Resp 33 H 01/07/23 06:00 BP 155/71 H 01/07/23 03:37 Pulse Ox 90 L 01/07/23 06:00 O2 Del Method BIPAP 01/07/23 04:30 O2 Flow Rate 45 01/07/23 04:00 FiO2 50 01/07/23 06:00 Documenting provider has reviewed patient's vital signs: yes Common normals: no apparent distress General appearance: cooperative and comfortable Nutritional appearance: cachectic Orientation/consciousness: Yes awake, Yes oriented to person and Yes oriented to place HENMT Other: Was initially wearing NIV mask, transitioned over to Vapotherm nasal cannula. Eye Common normals: PERRL Chest Common normals: inspection of chest normal Respiratory Other: Overall distant/diminished breath sounds. Mild crackles LLL. No wheezes or rhonchi. Cardio Rate: tachycardic Rhythm: regular rhythm Other: PVCs and PACs noted GI Common normals: soft to palpation Inspection: normal to inspection Auscultation: hypoactive bowel sounds Bladder/kidney exam: catheter in place Catheter type (Male): urethral Extremity Common normals: no clubbing, cyanosis or edema Neuro Speech: speech normal Psych Attitude: calm Activity/motor behavior: appropriate eye contact Speech: normal speech Thought process: normal thought process
[2023-01-07] MEDS: AMLODIPINE BESYLATE 5 MG TABLET PO (08:40)
[2023-01-07] MEDS: METOPROLOL SUCCINATE 25 MG TAB.ER.24H PO (08:40)
[2023-01-07] MEDS: ATORVASTATIN CALCIUM 40 MG TABLET PO (08:40)
[2023-01-07] MEDS: OMEPRAZOLE 40 MG CAPSULE.DR PO (08:40)
[2023-01-07] MEDS: FERROUS SULFATE 325 MG TABLET PO ×2 (08:40→20:46)
[2023-01-07] MEDS: ASPIRIN 81 MG TAB.CHEW PO (08:40)
[2023-01-07] MEDS: ENOXAPARIN SODIUM 40 MG/0.4 ML SYRINGE SUBQ (08:40)
[2023-01-07] MEDS: GUAIFENESIN 600 MG TAB.ER.12H PO ×2 (08:40→20:46)
[2023-01-07] MEDS: THEOPHYLLINE 300 MG TAB.ER.12H PO ×2 (08:40→20:46)
[2023-01-07] MEDS: SPIRONOLACTONE 25 MG TABLET PO (08:40)
[2023-01-07] MEDS: DOCUSATE SODIUM 100 MG CAPSULE PO (08:49)
--- NOTE | 2023-01-07 09:19 | CM.NOTE ---
Pt having some underlying confusion this AM, attempted to reach out to pt's son. No answer.
[2023-01-07] MEDS: BUDESONIDE 0.5 MG/2 ML AMPULE NEB IH ×2 (10:55→20:08)
--- NOTE | 2023-01-07 11:51 | PT.DAILY ---
Physical Therapy Daily Note PT Daily Note/Assess Start: 01/05/23 11:23 Freq: Status: Active Protocol: Document 01/07/23 11:48 LEENAJORGE LUIS (Rec: 01/07/23 11:51 EVANGELINA [id number]) Physical Therapy Daily Note/Assessment Time In/Time Out Time In 11:00 Time Out 11:13 Pain In Pain N/A Pain Out Pain N/A Subjective Subjective Pt sitting EOB upon arrival. On Vapotherm Spo2 95%. Therapeutic Activity Time Therapeutic Activity Minutes (minutes) 10 Therapeutic Activity Units 1 Therapeutic Activity Treatment Bed Mobility Ability Minimum Assist Chair Transfer Ability Contact Guard Assist Therapeutic Activity Comments Sits EOB unsupported without LOB. Sit>stand to RW CGA with 2x attempts to get momentum. f -b stepping 3'x2 due to short lines CGA with RW. Seated rest break. SpO2 88% with activity but quickly recovers with proper breathing technique. Sit>stand with R lateral stepping CGA. Sit>supine Ian for LEs. Remains supine with call light in reach and needs met. Nursing notified pt is back to supine position. Total Physical Therapy Time Total Therapy Minutes 10 Total Physical Therapy Units 1 Summary Daily Note Summary Improved mobility and tolerance with activity today. less anxious.
[2023-01-07] MEDS: 0.9 % SODIUM CHLORIDE 1,000 ML 75 ML IV (12:22)
--- NOTE | 2023-01-07 12:46 | CM.NOTE ---
Pt now more awake, A&O x3. Discussed with pt again discharge planning and his weakness. Pt verbalizes understanding and continues to refuse inpt skilled therapy.
--- NOTE | 2023-01-07 15:16 | CM.NOTE ---
Talked to pt again with son's at bedside about skilled placement. Pt now in agreement to skilled placement and the son's will care for his dog. Pt requests the [facility], he has been there skilled in the past. Clinical faxed over to [facility].
--- NOTE | 2023-01-07 15:30 | CM.NOTE ---
[facility] called back and are full at this time, could have possible discharge on Tuesday. Dr. Singh's note does say pt will be hospitalized for at least 3 more days. Discussed with pt and will call back to [facility] on Tuesday to re-evaluate placement.
--- NOTE | 2023-01-07 16:08 | CM.NOTE ---
Pt refuses to go skilled to another facility at this time, pt states if the [facility] do not have beds I will go home with HH services.
--- NOTE | 2023-01-07 20:01 | RESP.RT ---
Pt wanted Trilogy off, placed pt back on Vapotherm 40L Fi02 55%
--- NOTE | 2023-01-07 20:08 | RESP.RT ---
decreased Fi02 down to 40%
[2023-01-07] MEDS: TAMSULOSIN HCL 0.4 MG CAPSULE PO (20:46)
[2023-01-07] MEDS: MIRTAZAPINE 15 MG TABLET PO (21:26)
[2023-01-08] VITALS (44 sets, daily range): BP systolic 131–156; BP diastolic 64–89; PULSE 94–131; RESP 10–33; TEMP 31.8–37.3; O2SAT 85–97
[2023-01-08] MEDS: PIPERACILLIN SODIUM/TAZOBACTAM 3.375 GM in 0.9 % SODIUM CHLORIDE 50 ML IV ×3 (00:07→16:08)
[2023-01-08] MEDS: 0.9 % SODIUM CHLORIDE 1,000 ML 75 ML IV ×2 (00:56→14:11)
[2023-01-08] MEDS: VANCOMYCIN HCL 1,000 MG in 0.9 % SODIUM CHLORIDE 250 ML 250 MG IV ×2 (01:45→13:58)
[2023-01-08] MEDS: METHYLPREDNISOLONE SOD SUCC PF 40 MG/ML VIAL IVP ×4 (03:07→21:18)
[2023-01-08] MEDS: IPRATROPIUM/ALBUTEROL SULFATE 3 ML AMPUL.NEB IH ×4 (04:04→19:54)
--- NOTE | 2023-01-08 04:04 | RESP.RT ---
decreased down to 35%
--- NOTE | 2023-01-08 04:52 | RESP.RT ---
increased Fi02 back up to 45%
[2023-01-08 05:35] LABS: Basophils Percent Auto 0.1 % (0.2-2.0); Hematocrit 34.3 % (42.0-54.0); Hemoglobin 10.2 g/dL (14.0-18.0); Immature Granulocytes Abs Auto 0.09 10^3/uL (0.00-0.03); Immature Granulocytes Pct Auto 0.7 % (0.0-0.5); Lymphocytes Absolute Auto 0.1 10^3/uL (1.2-3.8); Lymphocytes Percent Auto 0.9 % (20.5-60.0); Mean Corpuscular HGB Conc 29.7 g/dL (29.9-35.2); Mean Corpuscular Hemoglobin 27.6 pg (25.9-34.0); Mean Platelet Volume 9.4 fL (9.5-13.5); Monocytes Percent Auto 6.9 % (1.7-12.0); Neutrophils Absolute Auto 12.5 10^3/uL (1.4-6.5); Neutrophils Percent Auto 91.4 % (43.0-75.0); Platelet Count 193 10^3/uL (150-450); Red Blood Count 3.69 10^6/uL (4.70-6.10); Red Cell Distribution Width 11.9 % (11.0-15.0); White Blood Count 13.7 10^3/uL (4.0-11.0)
[2023-01-08 05:38] LABS: Anion Gap 2.3; BUN Creatinine Ratio 21.4; Calcium 8.8 mg/dL (8.5-10.1); Carbon Dioxide 42.8 mmol/L (21.0-32.0); Chloride 96 mmol/L (98-107); Estimated GFR (African America >60 (>=60); Estimated GFR (Non-African Ame >60 (>=60); Glucose 98 mg/dL (74-106); Potassium 5.1 mmol/L (3.5-5.1); Sodium 136 mmol/L (136-145)
[2023-01-08] MEDS: BUSPIRONE HCL 10 MG TABLET 5 MG PO ×2 (05:46→21:18)
--- NOTE | 2023-01-08 06:00 | XR_ITS ---
The [address] [address] Patient Name: SOFYA ORTA MRN: [id number] date: 1950 Sex: M Assigned Patient Location: ICU Current Patient Location: ICU Accession/Order Number: [id number] Exam Date: 01/08/2023 05:19 Report Date: 01/08/2023 05:54 At the request of: JOSE CARLOS HANDY Procedure: XR chest 1V EXAMINATION: XR chest 1V HISTORY: HCAP ; pneumonia COMPARISON: XR chest 01/07/2023 FINDINGS: LUNGS: Patchy and confluent opacities throughout the left mid and lower lung. Chronic COPD changes bilaterally. VASCULATURE: No increased pulmonary vasculature. PLEURA: Bilateral pleural effusions. CARDIAC: No cardiomegaly or cardiac silhouette abnormality. MEDIASTINUM: No visible mass or adenopathy. BONES: No fracture or visible bone lesion. OTHER: Negative. XR/XR chest 1V IMPRESSION: 1. Grossly stable moderate infiltrates within left mid and lower lung favoring pneumonia. 2. Stable bilateral vxsgw-rh-zuslmnea pleural effusions. Electronically authenticated by: VARGAS HARTLEY Date: 01/08/2023 05:54
[2023-01-08] MEDS: ENOXAPARIN SODIUM 40 MG/0.4 ML SYRINGE SUBQ (09:04)
[2023-01-08] MEDS: METOPROLOL SUCCINATE 25 MG TAB.ER.24H PO (09:05)
[2023-01-08] MEDS: GUAIFENESIN 600 MG TAB.ER.12H PO ×2 (09:05→21:17)
[2023-01-08] MEDS: AMLODIPINE BESYLATE 5 MG TABLET PO (09:05)
[2023-01-08] MEDS: ASPIRIN 81 MG TAB.CHEW PO (09:05)
[2023-01-08] MEDS: SPIRONOLACTONE 25 MG TABLET PO (09:05)
[2023-01-08] MEDS: FERROUS SULFATE 325 MG TABLET PO ×2 (09:05→21:17)
[2023-01-08] MEDS: ATORVASTATIN CALCIUM 40 MG TABLET PO (09:05)
[2023-01-08] MEDS: THEOPHYLLINE 300 MG TAB.ER.12H PO ×2 (09:05→21:18)
[2023-01-08] MEDS: OMEPRAZOLE 40 MG CAPSULE.DR PO (09:05)
--- NOTE | 2023-01-08 10:42 | PC.NURSE ---
PT at bedside, pt spo2 dropped to 72% on vapotherm 40L 40%. increased fio2 to 50%, pt labored. RT at bedside.
[2023-01-08] MEDS: BUDESONIDE 0.5 MG/2 ML AMPULE NEB IH ×2 (11:00→19:55)
--- NOTE | 2023-01-08 11:26 | REH.PTDLY ---
Physical Therapy Daily Note PT Daily Note/Assess Start: 01/05/23 11:23 Freq: Status: Active Protocol: Document 01/08/23 10:40 RIGO (Rec: 01/08/23 11:25 RIGO [id number]) Physical Therapy Daily Note/Assessment Time In 10:30 Time Out 10:39 Pain Level 0 Subjective Pt has no complaints of pain. States he just feels like he's not getting enough air. SpO2 at 89% upon arrival. Therapeutic Exercise Minutes (minutes) 6 Therapeutic Exercise Units 0 Therapeutic Exercise Treatment Cues for pt to focus on breathing during rx and to take breaks as needed. Instructed pt in B LE AP 10x with SpO2 dropping to 84%. Cues for breath, rises to 85%. Had pt try quad sets 7x with SpO2 again dropping to 83%. Stepped outside and asked nursing if pt has been dropping this low and she states he hadn't been this morning. Pt is at 40% on vapotherm, respiratory comes into room and they increase to 50%. Pt still around 86% so did not proceed with rx. Total Therapy Minutes 6 Total Physical Therapy Units 0 Daily Note Summary Pt's SpO2 drops easily with very little movement or activity this morning while on vapotherm. Did not complete finish visit due to this.
[2023-01-08 11:39] LABS: ABG PCO2 75.1 mmHg (35.0-45.0); Base Excess ABG 19.4 mmol/L (-2.0-2.0); HCO3 ABG 44.5 mmol/L (22.0-26.0); PO2 ABG 59.3 mmHg (80.0-100.0); pH ABG 7.381 (7.350-7.450)
[2023-01-08 11:40] LABS: Allen Test POSITIVE (POSITIVE); Fractionated Inspired Oxygen 50 %; Oxygen Saturation ABG 92.9 %; Puncture Site R RADIAL; Rate 12; Tidal Volume 500
--- NOTE | 2023-01-08 14:05 | P.PLPN_ITS ---
Progress Note: A&P Assessment and Plan (1) Healthcare-associated pneumonia: Assessment and Plan: 1. Healthcare-acquired pneumonia.? Remains on Zosyn & Vancomycin. Culture showed only a few Gram + cocci in sputum, current working diagnosis remains suspected Staphylococcus (e.g. MRSA).? CXR today is unchanged. 2. Mental status changes secondary to toxic metabolic encephalopathy associated with benzodiazepine leading to worsening hypercapnic respiratory failure from d epressed respiratory drive, +/- contribution from severe sepsis.? Improved.? Marked change in confusion compared to even . Accompanied by change is appearance - he appears uncomfortable, not just anxious or in a panic. ABG checked STAT - pH/pCO2 are even better than yesterday, so cannot blame acute hypercapnia on his mentation. 3. Htbrg-nb-oizmkks hypercapnic respiratory failure. Secondary to pneumonia & AECOPD, with an acute exacerbation from benzodiazepine-induced respiratory depression on 01/06/2023.?pH/CO2 improved, so Trilogy is working as intended wit h improved CO2 gas exchange. 4. Severe sepsis secondary to pneumonia.? 5. Uzpvb-vh-jbxuwiv hypoxic respiratory failure.? Secondary to pneumonia & AEC OPD. ? Failed transition to Vapotherm this AM, unable to maintain adequate SpO2 on it. Remains on BiPAP, unable to leave off at this time. Concerned about skin breakdown given poor nutritional status.Goal SpO2 88-92% to prevent hyperoxic- induced hypercapnia.? 6. Acute exacerbation of COPD secondary to #1.? Very severe centrilobular emphysema, prednisone and O2-dependent, s/p [place] valve RUL 07/28/2020.? Patient's status has been declining over the past 6-12 months, with 3 admissions in the past 6 months. Now that his pCO2 is corrected, and pneumonia appears treated (no significant change in CXR and WBC), ongoing respiratory issues appear to be due to underlying COPD. At this point, intubation for his end- stage COPD (not the correctable factors) would have a low probability for successful ventilator liberation, and he would be at risk for either a tracheostomy or terminal extubation by his sons. 7. 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 Buspar 5mg TID started 01/06/2023. Was doing well yesterday, but markedly worse today. His appearance to me did not seem anxious yet he was breathing harder. 8. Urinary incontinence.? Garcia inserted yesterday d/t increased dyspnea utilizing even bedside urinal, as well as to monitor accurate I/O?s.? Renew Garcia today. 9. Essential hypertension.? Monitoring BP at this point. 10. Iron deficiency anemia.? Monitoring Hb. 11. FABIOLA.? 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 Poor PO intake, developing anasarca. He would likely 3rd space albumin. For nutrition, looking at PPN/TPN. 13.?History of tobacco abuse. 1.5ppd x 43 years. 14. Candidia + sputum.? Normal jenni/contaminant. No treatment indicated. 15. Weakness.? Was looking into SNF yesterday, but clinical status has worsened. 16. Constipation. Had BM yesterday. Plan Despite patient's remarkable improvement yesterday, he is even worse today. Concerned that yesterday represented a rally before becoming terminal. His appearance, inability to become comfortable, confusion despite correction of pCO2 and pneumonia, and worsening edema/anasarca also suggest patient is becoming terminal - terminal agitation . I called up the patient's son, Brayden, and explained the patient's change in condition. Naturally, Brayden sounded shocked given how well he was doing yesterday. Had discussion about potential end of life situation here - Brayden stated that the patient did not want any aggressive measures such as CPR - I did find a DNR-CCA in his chart from 01/03/2023. I explained how it did not address intubation - originally, I was cautiously optimistic that he could be liberated if the need for intubation was due to a reversible condition such as pneumonia, but now that this has been treated, the patient's condition now may represent the natural end-stage progression of emphysema. In this case, intubating for end-stage COPD would have a low likelihood of successful ventilator weaning with the potential outcomes of either ending in tracheostomy +/- LTAC or the sons having to make the decision for terminal extubation. At this point, I am suggesting more comfort measures because I am not able to cure his end-stage COPD. Management is difficult as he has anaphylaxis to morphine and meperidine, and he responded very poorly to Ativan (which required reversal on 01/06/2023). Will try a low dose of Haldol 0.5mg and see if this helps. QTc was ~400 this AM. I brought up Hospice as an option earlier this visit, but we may be at that point now where it is strongly recommended. Subjective Subjective Interval history: Patient discussed with RN & RT. Patient was doing very well yesterday. Today, he is doing much worse. He is more confused, does not remember his sons visited yesterday, and thinks we are repainting his hospital room. He earlier was telling staff that he was dying and wanted to . Now he states he wants to live. I explained that these contradictory statements are confusing the staff, and me, as to what his wishes are. He states he feels fine , but he is tachypneic, appears tired and uncomfortable, and is developing anasarca. He failed the Vapotherm and desaturated on it; it is difficult to keep him off BiPAP now without causing more hypoxemia. Exam Constitutional Vital Signs, click to edit/add: Last Vital Signs Temp 97.6 F 01/08/23 08:36 Pulse 120 H 01/08/23 13:00 Resp 33 H 01/08/23 11:26 BP 138/79 01/08/23 11:26 Pulse Ox 91 L 01/08/23 11:26 O2 Del Method BIPAP 01/08/23 04:54 O2 Flow Rate 40 01/07/23 20:22 FiO2 45 01/08/23 04:54 Documenting provider has reviewed patient's vital signs: yes General appearance: disheveled; not comfortable Nutritional appearance: cachectic Orientation/consciousness: Yes confused HENMT Other: Wearing BiPAP Chest Chest: symmetrical chest wall rise Respiratory Effort & inspection: tachypneic, labored and uses accessory muscles Auscultation: diminished lung sounds (very, very diminished); no rhonchi and no wheezes Cardio Rate: tachycardic Rhythm: regular rhythm and other (PVCs and PACs) GI Inspection: normal to inspection Auscultation: hypoactive bowel sounds Bladder/kidney exam: catheter in place Catheter type (Male): urethral Extremity General: edema (marked worsening of edema, developing anasarca) Neuro Common normals: moves all extremities Psych Activity/motor behavior: restless (complained multiple times about being uncomfortable) Thought process: confused Thought content: hallucination(s) visual (asked if we were painting the room [place])
[2023-01-08] MEDS: HALOPERIDOL LACTATE 5 MG/ML VIAL IV ×2 (14:11→23:37)
[2023-01-08] MEDS: ACETAMINOPHEN 325 MG TABLET 650 MG PO (21:17)
[2023-01-08] MEDS: MIRTAZAPINE 15 MG TABLET PO (21:18)
[2023-01-08] MEDS: TAMSULOSIN HCL 0.4 MG CAPSULE PO (21:18)
[2023-01-09] VITALS (46 sets, daily range): BP systolic 126–171; BP diastolic 54–83; PULSE 85–135; RESP 4–38; TEMP 36.8; O2SAT 81–97
[2023-01-09] MEDS: DIPHENHYDRAMINE HCL 50 MG/ML (1ML) VIAL 12.5 MG IV (00:49)
[2023-01-09] MEDS: DILTIAZEM HCL 25 MG/5 ML VIAL IV (00:51)
[2023-01-09] MEDS: VANCOMYCIN HCL 1,000 MG in 0.9 % SODIUM CHLORIDE 250 ML 250 MG IV (01:27)
[2023-01-09] MEDS: PIPERACILLIN SODIUM/TAZOBACTAM 3.375 GM in 0.9 % SODIUM CHLORIDE 50 ML IV ×2 (01:27→08:03)
--- NOTE | 2023-01-09 03:00 | RESP.RT ---
BIPAP alarming continuously due to pt lip hanging out of mask. Pt is already wearing large mask. Took pt off of BIPAP and placed on Vapotherm 40L 60%. Spo2 94%.
[2023-01-09] MEDS: METHYLPREDNISOLONE SOD SUCC PF 40 MG/ML VIAL IVP ×2 (03:05→08:06)
[2023-01-09] MEDS: 0.9 % SODIUM CHLORIDE 1,000 ML 75 ML IV (04:46)
[2023-01-09] MEDS: IPRATROPIUM/ALBUTEROL SULFATE 3 ML AMPUL.NEB IH ×2 (04:48→10:45)
--- NOTE | 2023-01-09 04:59 | RESP.RT ---
Decreased FIO2 to .55 due to O2 order
[2023-01-09 05:50] LABS: Basophils Percent Auto 0.1 % (0.2-2.0); Hemoglobin 9.5 g/dL (14.0-18.0); Immature Granulocytes Abs Auto 0.06 10^3/uL (0.00-0.03); Immature Granulocytes Pct Auto 0.5 % (0.0-0.5); Lymphocytes Absolute Auto 0.1 10^3/uL (1.2-3.8); Lymphocytes Percent Auto 0.8 % (20.5-60.0); Mean Corpuscular HGB Conc 29.7 g/dL (29.9-35.2); Mean Corpuscular Hemoglobin 27.6 pg (25.9-34.0); Mean Platelet Volume 9.8 fL (9.5-13.5); Monocytes Absolute Auto 0.6 10^3/uL (0.3-0.8); Monocytes Percent Auto 5.5 % (1.7-12.0); Neutrophils Absolute Auto 10.4 10^3/uL (1.4-6.5); Neutrophils Percent Auto 93.1 % (43.0-75.0); Platelet Count 187 10^3/uL (150-450); Red Blood Count 3.44 10^6/uL (4.70-6.10); Red Cell Distribution Width 11.9 % (11.0-15.0); White Blood Count 11.1 10^3/uL (4.0-11.0)
[2023-01-09 05:57] LABS: Anion Gap 5.2; BUN Creatinine Ratio 30.5; Calcium 8.7 mg/dL (8.5-10.1); Carbon Dioxide 40.2 mmol/L (21.0-32.0); Chloride 97 mmol/L (98-107); Estimated GFR (African America >60 (>=60); Estimated GFR (Non-African Ame >60 (>=60); Glucose 98 mg/dL (74-106); Potassium 5.4 mmol/L (3.5-5.1); Sodium 137 mmol/L (136-145)
[2023-01-09] MEDS: ENOXAPARIN SODIUM 40 MG/0.4 ML SYRINGE SUBQ (08:04)
--- NOTE | 2023-01-09 08:39 | PC.NURSE ---
Patient has declined from the previous few days. Today patient is unable to follow verbal commands. Patient is unable to respond vocally or swallow PO medications. Vapotherm increased from 40L at 55% to 40L at 70%. Patients oxygen saturation is at 90%. Heart rate is 118, BP is 171/71, RR is 30 and labored and using accessory muscles. Dr. Singh notified of changes, gave the RN verbal order for ativan. Conner Owen was notified of change in condition.
[2023-01-09] MEDS: LORAZEPAM 2 MG/ML ORAL CONCENTRATE BOTTLE 0.25 MG PO (08:52)
[2023-01-09] MEDS: BUDESONIDE 0.5 MG/2 ML AMPULE NEB IH (10:45)
--- NOTE | 2023-01-09 12:37 | P.PLPN_ITS ---
Progress Note: A&P Assessment and Plan (1) Healthcare-associated pneumonia: Assessment and Plan: 1. Healthcare-acquired pneumonia.? Secondary to Gram + cocci, suspect Staphylococcus (e.g. MRSA).? 2. Mental status changes secondary to toxic metabolic encephalopathy associated with benzodiazepine leading to worsening hypercapnic respiratory failure from depressed respiratory drive, +/- contribution from severe sepsis. Moribund at this point. 3. Vwxmk-go-ponohpt hypercapnic respiratory failure. Secondary to pneumonia & AECOPD, with an acute exacerbation from benzodiazepine-induced respiratory depression on 01/06/2023.?D/C Trilogy as patient is now DNR-CC 4. Severe sepsis secondary to pneumonia.? 5. Yjvqr-ci-bammynn hypoxic respiratory failure.? Secondary to pneumonia & AECOPD. ?Comfort - transition from Vapotherm to traditional NC. 6. Acute exacerbation of COPD secondary to #1.? Very severe centrilobular emphysema, prednisone and O2-dependent, s/p [place] valve RUL 07/28/2020.? Patient is dying, ultimately due to his end-stage COPD. 7. 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 8. Urinary incontinence.? Garcia continued for now. 9. Essential hypertension.? 10. Iron deficiency anemia.? 11. FABIOLA.? 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 Poor PO intake contributing to low protein intake causing anasarca. 13.?History of tobacco abuse. 1.5ppd x 43 years. 14. Candidia + sputum.? 15. Weakness.? Plan Patient is dying, terminal at this point. Pneumonia was the final insult to his COPD; there is no further treatment. Intubation would not fix this. Discussed with sons goals of care. Goal is to make patient comfortable. Code status changed to DRNCC. Discontinued all non-comfort meds. He responded very well to Ativan intensol - will continue it for now. Understand that this could induce respiratory depression (as noted earlier this week), but it is a lower dose, and the goal of treatment is alleviating suffering but could result in possibly hastening (doctrine of double effect ) - unable to use opiates d/t anaphylactic reaction documented. Haldol has also helped with terminal agitation. Transition from Vapotherm to nasal cannula. Subjective Subjective Interval history: Discussed within RN & RT. Patient continues to decline. Had elevated HR last night which caused worsening hypoxemia, but that corrected with Cardizem bolus - he did not require a gtt. He appeared uncomfortable on Trilogy; Vapotherm applied and he appeared more comfortable with that. He was becoming more anxious this AM and did not respond to Haldol. Staff noted he appeared uncomfortable; I gave him a small dose of Ativan 0.25 PO intensol, which worked well for him. He will open his eyes to voice for me, but otherwise does not follow any commands. I spoke with the patient's sons about the patient's condition which appears terminal at this point. The goal is that we do not want the patient to suffer. They elected to make him DNR-CC. Exam Constitutional Vital Signs, click to edit/add: Last Vital Signs Temp 98.3 F 01/09/23 08:00 Pulse 110 H 01/09/23 11:46 Resp 28 H 01/09/23 11:46 BP 171/71 H 01/09/23 08:00 Pulse Ox 94 L 01/09/23 11:46 O2 Del Method Vapotherm 01/09/23 10:49 O2 Flow Rate 40 01/09/23 10:49 FiO2 70 01/09/23 10:49 Documenting provider has reviewed patient's vital signs: yes Other: Patient only opens eyes to voice, does not follow any other commands. He appears to be dying. HENMT Other: Wearing Vapotherm nasal cannula Chest Common normals: inspection of chest normal Cardio Rate: tachycardic Rhythm: regular rhythm and other (PACs & PVCs) GI Inspection: anasarca present Auscultation: absent bowel sounds Bladder/kidney exam: catheter in place Catheter type (Male): urethral Extremity General: edema (worsening anasarca) Neuro Motor exam: no tremor noted and no fasciculations Psych Other: Patient appears comfortable
[2023-01-10 00:30] VITALS: PULSE 79
--- NOTE | 2023-01-10 01:55 | PM.DN ---
Pronouncement Note Date and Time of Date of : 01/10/23 Time of : 00:45 PCOD Preliminary cause of : Respiratory arrest Contributing Factors (1) Acute on chronic respiratory failure with hypercapnia: (2) Acute on chronic respiratory failure with hypoxia: (3) Community acquired pneumonia: (4) Acute infective exacerbation of chronic obstructive airway disease: Summary Additional details: [facility] Referral #[id number] Additional Data Confirmation of : no pulse, no respirations, no heart sounds, pupils fixed and dilated and other Family: at bedside and contacted Attending/PCP notified: Yes Attending physician: Belkis Browne Was code activated: No Autopsy requested: No title examiner notified: No [facility] notified: Yes Advance directives: Yes
--- NOTE | 2023-01-10 02:12 | PC.NURSE ---
at 0045 am on 01/10/23 Mr De Leon respiration ceased and he was absent of breath sounds, heartbeat, B/P, and pupils were fixed and dilated as assessed and confirmed by myself and Cristina downing
--- NOTE | 2023-01-10 02:17 | PC.NURSE ---
resps ceased after deteriorating for and hour as evidenced by SPO2 decreasing from 94% on 100% vapotherm to mid 80's and HR to 80's. Family was called and came to bedside. resps ceased at 0045. was verified by myself and Cristina Caceres RN by absence pulse, resps, b/p, and pupils were fixed and dialated. Dr Belkis Browne was notified and [facility] was called. referral number [id number]. [facility] was notified
--- NOTE | 2023-01-10 07:23 | PM.DS1 ---
DS: Providers Provider Date of admission: 01/03/23 19:08 Primary care physician: MARIE MCCALLUM Attending physician on admission: Jese Tenorio Attending physician on discharge: Moses Singh DS: Diagnosis Discharge Diagnosis (1) Healthcare-associated pneumonia: Assessment and plan: Admitting Diagnoses: 1. Community acquired pneumonia. 2. Tleum-hf-peeyuin hypercapnic respiratory failure. 3. Ijzbq-qw-zmyafjb hypoxic respiratory failure. 4. Acute exacerbation of COPD. Discharge Diagnoses: 1. Healthcare-acquired pneumonia, secondary to Gram + cocci, suspect Staphylococcus species.? 2. Severe sepsis secondary to pneumonia. 3. Bydyt-jy-cotkvnh hypercapnic respiratory failure. 4. Vxbwm-pk-bxskfqt hypoxic respiratory failure. 5. Acute exacerbation of COPD; underlying very severe centrilobular emphysema secondary to tobacco abuse. 6. Toxic metabolic encephalopathy secondary to benzodiazepine (lorazepam), in addition to acute hypercapnia and severe sepsis. 7. 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 8. 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 9. Essential hypertension 10. Iron deficiency anemia. 11. Obstructive sleep apnea. 12. Urinary incontinence. 13. Vanessa positive sputum - normal jenni/contaminant. DS: Summary Hospital Course Hospital Course: 71yo male presented to [facility] with respiratory distress. He has very severe centrilobular emphysema secondary to tobacco abuse, on chronic O2 and prednisone. He was found to be hypoxic despite his normal 3L/min O2. Imaging suggested a pneumonia. He was admitted for these respiratory problems. This was his 3rd admission in the past 6 months, with last admission <2 months prior. He was originally treated as community acquired pneumonia. Pulmonary was consulted. Vapotherm was started and was unable to meet his O2 demands, requiring use of a BiPAP. It was later revealed that the patient had a history of FABIOLA, but had not worn his CPAP for years - his son found the patient's CPAP in his bedroom covered in dust. He wore the BiPAP here without complaint and tolerated it well. Despite wearing the BiPAP, his pCO2 did not correct as much as anticipated, deeming this a BiPAP failure. An NIV (Trilogy) was arranged for the patient to use upon discharge. CXR was worsening. As the patient was admitted <90 days prior, changes were made to his antibiotics to reflect healthcare-acquired pneumonia opposed to community acquired pneumonia. Patient continued to have tachypnea and tachycardia, along with a leukocytosis. As he also experienced significant hypoxia & hypercapnia, this presentation was determined to be a manifestation of severe sepsis. Sputum culture grew Vanessa, which is normal jenni/contaminant, and a few Gram positive cocci. No further verification was made of the Gram positive cocci, but given the patient's history, this was treated as Staphylococcus aureus, and as there would be no way to predict if it were MSSA vs. MRSA, he was started on vancomycin. CXR and leukocytosis began to stabilize and slightly improve. The patient has a history of anxiety and panic attacks associated with his COPD. The evening of 01/05/2023 / late night 01/06/2023, the patient received 2 doses of lorazepam 1mg. The morning of 01/06/2023, the patient was obtunded and not taking adequate tidal volumes on the BiPAP. Flumazenil 0.2mg x 2 was administered and the patient became arousable. ABG was obtained, revealing worsening of his hypercapnia. The BiPAP was changed over to [facility]'s Trilogy, and his ABGs improved. It was at this time that the pulmonary service requested to assume primary care of the patient, as the vast majority of his acute issues were pulmonary related. His ABGs improved further while on Trilogy. The patient had a good day on 01/07/2023, but following that, he began to decline rapidly. He has underlying pulmonary cachexia, and despite consultation with a buildings and grounds superintendent outpatient, he had poor PO intake at home. He developed moderate protein calorie malnutrition, and with lack of protein intake, he developed edema which progressed to anasarca. His breathing continued to decline and he became more confused despite a compensated pH with a pCO2 lower than admission. The lorazepam effects were resolved well before this. He also became more agitated than before. This was concerning for terminal agitation. Discussed with patient that intubation would not be beneficial at this juncture, and he was made a DNR-CCA no intubation. He further declined, and on 01/09/2023, he would only open his eyes to voice, but not respond otherwise. The patient appeared moribund by this point. Discussed comfort care with the patient's sons, who voiced agreement. There was nothing further I could reasonably do at this point for the patient's COPD - he was already on maximum medical therapy outpatient including O2, prednisone, and theophylline; he previously had [place] endobronchial valves placed 07/28/2020, and the NIV (Trilogy) was causing the patient further agitation by this time. The patient was made DNR-CC. Morphine and opiates were unable to be given due to history of anaphylaxis. Lorazepam was initiated at a lower dose of 0.25mg which relieved patient's appearance of dyspnea and discomfort without suppressing his respiratory drive. The patient 01/10/2023 @ 00:45. He was not seen by me on this calendar date. Exam Constitutional Vital Signs, click to edit/add: Last Vital Signs Temp 98.3 F 01/09/23 08:00 Pulse 79 01/10/23 00:30 Resp 19 01/09/23 23:58 BP 126/54 01/09/23 19:24 Pulse Ox 81 L 01/09/23 23:58 O2 Del Method Vapotherm 01/09/23 23:58 O2 Flow Rate 40 01/09/23 23:58 FiO2 100 01/09/23 23:58 Discharge Plan Discharge Disposition: Discharge Date/Time: 01/10/23 02:26 Date/Time: 01/10/23 00:45
== END 2023-01-10 02:26 | disposition expired | DRG 871 ==
LOC: ER 18:16 → ICU 19:11
PROVIDERS: Family Medicine; Internal Medicine; Physician Assistant; Admitting Provider Internal Medicine; Emergency Provider Emergency Medicine Emergency Medical Services; PCP Family Medicine; Visit Provider Internal Medicine
DX: A41.01 Sepsis due to Methicillin susceptible Staphylococcus aureus (principal); G92.8 Other toxic encephalopathy; J96.21 Acute and chronic respiratory failure with hypoxia; J18.9 Pneumonia, unspecified organism; J96.22 Acute and chronic respiratory failure with hypercapnia; E87.1 Hypo-osmolality and hyponatremia; E44.0 Moderate protein-calorie malnutrition; Z68.1 Body mass index [BMI] 19.9 or less, adult; R65.20 Severe sepsis without septic shock; E78.00 Pure hypercholesterolemia, unspecified; I10 Essential (primary) hypertension; J43.2 Centrilobular emphysema; E88.A Wasting disease (syndrome) due to underlying condition; D50.9 Iron deficiency anemia, unspecified; G47.33 Obstructive sleep apnea (adult) (pediatric); F17.210 Nicotine dependence, cigarettes, uncomplicated; R32 Unspecified urinary incontinence; F41.1 Generalized anxiety disorder; F41.0 Panic disorder [episodic paroxysmal anxiety]; N40.1 Benign prostatic hyperplasia with lower urinary tract symptoms; R35.1 Nocturia; R39.11 Hesitancy of micturition; Y95 Nosocomial condition; Z66 Do not resuscitate; Z99.81 Dependence on supplemental oxygen; Z79.899 Other long term (current) drug therapy; Z79.52 Long term (current) use of systemic steroids; Z79.82 Long term (current) use of aspirin; Z95.5 Presence of coronary angioplasty implant and graft; Z77.090 Contact with and (suspected) exposure to asbestos; Z98.890 Other specified postprocedural states; Z91.198 Patient's noncompliance with other medical treatment and regimen for other reason; T42.4X5A Adverse effect of benzodiazepines, initial encounter
CPT/HCPCS: 0202U; 36415; 36600; 51702; 71045; 71250; 80048; 80053; 80198; 80202; 82800; 82805; 83880; 84484; 85025; 85378; 85610; 85730; 87040; 87070; 87106; 87205; 90662; 90732; 93005; 94640; 94660; 94667; 94668; 94761; 94799; 96365; 96366; 96367; 96368; 96372; 96375; 96376; 97161; 97165; 97530; 97535; 99285; G0008; G0009; J0456; J2920; J2930; J3370; Q3014